=== PATIENT | male | born 1940 | race Two or more races ===

== ENCOUNTER → 2020-09-18 | Outpatient (REF) | payer MEDICARE, OTHER ==
[2020-09-18 17:41] LABS: PERCENT SATURATION 29.6 % (19.7-50.0)
[2020-09-18 17:49] LABS: FOLATE 15.9 NG/ML
== END ==
LOC: M LAB REF 17:03
PROVIDERS: ATTEND Internal Medicine Nephrology
DX: D64.9 Anemia, unspecified (principal)

== ENCOUNTER → 2020-10-28 | Outpatient (CLI) | payer MEDICARE, OTHER ==
[~2020-10-28] MED LIST: BARIUM SULFATE 700 MG TABLET (E-Z-DISK) As Ordered ONE; E-Z-PAQUE 96% w/w SUSP 176GM BTL As Ordered ONE; VARIBAR NECTAR 40% w/v 240ML SUSP BTL As Ordered ONE; VARIBAR PUDDING 40% w/v 230ML TUBE As Ordered ONE
--- NOTE | 2020-10-28 16:56 | REP ---
INDICATION: M47.02 DYSPHAGIA. COMPARISON: NONE TECHNIQUE: The procedure was performed under the direct supervision of . The procedure was performed with Gina Montanez from speech pathology present. 2.3 minutes of fluoroscopy time was utilized for this procedure. FINDINGS: Thin: The patient was instructed to take 1 drink from a cup. The patient took a large bolus. There is laryngeal penetration identified. Patient was then instructed to take a smaller during from the cup. With this there is no evidence of laryngeal penetration. [place], The patient was instructed to take a drink from the cup. There is no evidence of penetration or aspiration. There is residual barium seen in the vallecula. Mixed fruit: There is no evidence of penetration or aspiration. Pudding: There is no evidence of penetration or aspiration. The patient was then instructed to take the drink of thin consistency barium through a straw with the chin tuck. With this there is no evidence of penetration or aspiration. A detailed report of this examination will be provided by speech pathology. IMPRESSION: None RECOMMENDATION: A detailed report of this examination will be provided by speech pathology. IMPRESSION: On the initial swallow of thin barium, the patient took a large bolus. There was laryngeal penetration. A detailed report of this examination will be provided by speech pathology. <Electronically signed by Alli Weinstein > 10/28/20 0495 <Electronically signed by Ygoi Juan > 10/28/20 0328
== END ==
LOC: EDSTATUS 11:00 → M RAD 11:11
PROVIDERS: ATTEND Otolaryngology
DX: R13.10 Dysphagia, unspecified (principal)

== ENCOUNTER 2021-01-16 12:20 | Emergency (ER) | payer MEDICARE, OTHER ==
[~2021-01-16] VITALS: Ht 167.6 cm; Wt 72.7 kg
--- OUTSIDE RECORDS SUMMARY | 2021-01-16 12:27 | CCD | Continuity of Care Document ---
Author Leonardo Dyer PA Organization Unknown Address [address] [place] [address] [place] [address] Phone [phone] Care Team Providers Care Sheet Metal Work Furnace Installer Name Role Phone Leonardo Yancey DO AUTM [phone] Dagoberto Rooney MD AUTM [phone] Fawad Cui MD AUTM [phone] Problems Active Problems Provider Date Dietary management surveillance NEMO Hooper Onset : 11/10/2020 First degree atrioventricular block Juan C Mennedez MD Ons et: 05/09/2020 Electrocardiogram abnormal Juan C Menendez MD Onset: 05/09 Edema Juan C Menendez MD Onset: 05/09/2020 Orthostatic hypotension Juan C Menendez MD Onset: 05/09/19 21 Essential hypertension Juan C Menendez MD Onset: Chronic diastolic heart failure Juan C Menendez MD Onset: 05/09/2020 Social History Type Date Description Comments Sex Unknown ETOH Use Does not consume alcohol Tobacco Use Start: Unknown End: Unknown Patient is a former smoker quit in 1979 Smoking Status Reviewed: 11/10/20 Patient is a former smoker qu it in 1979 Exercise Type/Frequency Walks sporadically Exercise Type/Frequency feet exercises Exercise Type/Frequency exercise bike twice w [place] Exercise Limitations Other Dementia Exercise Limitations Parkinsons Allergies, Adverse Reactions, Alerts Description No Known Drug Allergies Medications Active Medications SIG Qnty Indications Ordering Provide r Date Multi Vitamin And Minerals Tablet s lion's marya supplement Unknown 11/09/2020 Vitamin D3 25mcg (1000 Ut) Capsule s 1 by mouth every day Unknown 11/09/2020 Co-Enzyme Q10 200mg Capsules 1 by mouth daily Unknown 11/09/2020 Docusate Sodium 100mg Tablets 2 by mouth once a day as needed Unknown 11/09/2020 Melatonin 10mg Capsules 1 by mouth once daily at bedtime Unknown 11/09/2020 Triamterene/Hydrochlorothiazide 37.5-25mg Capsules 1 by mouth every day Unknown 021 Aspirin 81mg Chewtabs 1 by mouth every day Unknown 05/08/2020 Atorvastatin Calcium 20mg Tablets 1 by mouth every night at bedtime Unknown 01/2021 Carbidopa-Levodopa 25-100mg Tablet s 1 by mouth 6 times a day Unknown 05/08/2020 Myrbetriq 25mg Tablets ER 24HR 1 by mouth every day Unknown 05/08/2020 Multivitamins Tablets Daily Man Cruz PA Synthroid 125mcg Tablets 1 PO daily Man Cruz PA Immunizations Description No Information Available Vital Signs Date Vital Result Comment 11/10/2020 10:32am Weight 155.00 lb Home Weight 161lb Height 63 inches 5'3" BMI (Body Mass Index) 27.5 kg/m2 BP Systolic Sitting 120 mmHg Ra, medium cuff BP Diastolic Sitting 70 mmHg Ra, medium cuff BP Systolic Lying Down 124 mmHg Ra, medium cuff BP Diastolic Lying Down 78 mmHg Ra, medium cuff BP Systolic Standing 112 mmHg Ra, medium cuff BP Diastolic Standing 68 mmHg Ra, medium cuff 05/09/2020 1:03pm Weight 175.00 lb Height 63 inches 5'3" BMI (Body Mass Index) 31.0 kg/m2 Heart Rate 57 /min BP Systolic Sitting 137 mmHg CBP, large cuff/Ra BP Diastolic Sitting 76 mmHg CBP, large cuff/Ra BP Systolic Lying Down 150 mmHg Omron, large cuff /Ra; HR: 55 bpm BP Diastolic Lying Down 80 mmHg Omron, large cuf f/Ra; HR: 55 bpm BP Systolic Standing 101 mmHg Omron, large cuff/R a; HR: 62 bpm BP Diastolic Standing 64 mmHg Omron, large cuff/ Ra; HR: 62 bpm Results Test Acquired Date Facility Test Result H/L Range Note Renal Profile 09/18/2020 [facility] ([facility])- - Glucose 103 70-106 Blood Urea Nitrogen 25.2 High 7-18 Creatinine 1.3 0.55-1.3 GFR (Calculated) 53 Low >60 Sodium 135.8 135-145 Potassium 3.52 3.5-5.5 Chloride 98.1 94-110 Carbon Dioxide 33.1 High 21-32 Calcium 8.8 8.5-10.1 Phosphorus 2.9 2.5-4.9 Albumin 4.0 3.5-4.7 CBC without Differential 09/18/2020 [facility] ([facility])- - White Blood Count 4.9 Low 5.0-10.0 Red Blood Count 3.61 Low 4.70-6.10 Platelets 232 172-450 Hemoglobin 11.3 Low 14.0-18.0 Hematocrit 34.8 Low 42.0-52.0 Laboratory test finding 09/18/2020 [facility] ([facility])- - Uric Acid 5.1 2.6-6 Magnesium Level 2.08 1.6-2.6 CBC With Auto Diff 05/21/2020 [place] [address] [phone] WBC # Bld Auto 4.8 10*3/uL Normal 4.45-10.71 1 RBC # Bld Auto 3.72 10*6/uL Low 4.3-6.1 Hgb Bld-sCnc 11.7 g/dL Low 13-18 Hct VFr Bld Auto 35.7 % Low 42-52 MCV BldCo Auto 96.0 fL Normal 80-96 MCH RBC Qn Auto 31.5 pg High 27-31 MCHC BldCo-mCnc 32.8 g/dL Low 33-37 RDW RBC Auto 14 % Normal 11-15 Platelet # Bld Auto 156 10*3/uL Normal 130-472 PMV Bld 8.1 fL Low 9.1-13.1 Neutrophils/leuk NFr Bld Auto 55.4 % Normal 41-77 Neutrophils # Bld Auto 2.6 U Normal 1.7-7.6 Lymphocytes/leuk NFr Bld Auto 25.6 % Normal 14-46 Lymphocytes # Bld Auto 1.2 U Normal 0.6-4.6 Monocytes/leuk NFr Bld Auto 15.9 % High 4-12 Monocytes # Bld Auto 0.8 U Normal 0.2-1.2 Eosinophil/leuk NFr Bld Auto 2.3 % Normal 0-7 Eosinophil # Bld Auto 0.1 U Normal 0.0-0.5 Basophils/leuk NFr Bld Auto 0.4 % Normal 0.4-1.3 Basophils # Bld Auto 0.0 U Normal 0.0-0.2 Nucleated Red Blood Cell 0 % Nucleated Red Blood Cell# 0 U Imm Granulocytes Bld Ql Auto 0.4 Normal 0-2 Imm Granulocytes # Bld Auto 0.0 U Normal 0-0.1 Manual diff Bld NO Comprehensive Metabolic Prof 05/21/2020 [place] [address] [phone] BUN SerPl-mCnc 26 mg/dL High 9-23 Sodium SerPl-sCnc 140 mmol/L Normal 132-146 Potassium SerPl-sCnc 3.7 mmol/L Normal 3.5-5.5 Chloride SerPl-sCnc 104 mmol/L Normal 99-109 Co2 SerPl-sCnc 32 mmol/L High 20-31 Anion Gap SerPl-sCnc 8 mmol/L Normal 8-16 Glucose SerPl-mCnc 87 mg/dL Normal 74-106 Creatinine 1.3 mg/dL High 0.5-1.1 GFR/Bsa.pred SerPlBld-ArVRat 53 UCUM Above 60 Alt SerPl w P-5'-P-cCnc 17 U/L Normal 10-49 Ast SerPl w P-5'-P-cCnc 26 U/L Normal 0-33 Alp SerPl-cCnc 81 U/L Normal 45-129 Calcium SerPl-mCnc 8.9 mg/dL Normal 8.5-10.1 Bilirub SerPl-mCnc 0.7 mg/dL Normal 0.3-1.2 Albumin SerPl BCP-mCnc 4.0 g/dL Normal 3.2-4.8 Prot SerPl-mCnc 7.6 g/dL Normal 5.7-8.2 Lipid Panel 05/21/2020 [place] [address] [phone] Triglycerides 62 mg/dL Normal 0-150 Cholesterol 97 mg/dL Low 120-200 HDL Cholesterol 44 mg/dL 2 LDL Cholesterol, Calc 41 mg/dL Normal 0-100 Laboratory test finding 05/21/2020 [place] [address] [phone] TSH SerPl DL<=0.005 mIU/L-aCnc 3.14 u[iU]/mL Normal 0.35-5.50 Laboratory test finding 05/21/2020 [place] [address] [phone] Phosphate SerPl-mCnc 2.8 mg/dL Normal 2.4-5.1 1 N18.30,I50.9,R60.0,I50.32 2 HDL Less than 40 mg/dL: Jamal or risk for CHD HDL Greater than 59 mg/dL: Low risk for CHD Procedures Date Code Description Status 11/10/2020 44735 Office/Outpatient Established Mo d MDM 30-39 Min Completed 11/10/2020 75084 ECG 12-Lead Completed 08/20/2020 84996 Echocardiogram 2-D Doppler Color Completed Medical Devices Description No Information Available Encounters Type Date Location Provider Dx Diagnosis Office Visit 11/10/2020 10:15a Main Office NEMO Hooper I50 .32 Chronic diastolic (congestive) heart failure I10 Essential (primary) hyperten chance I95.1 Orthostatic hypotension R60.0 Localized edema I44.0 Atrioventricular block, firs t degree R94.31 Abnormal electrocardiogram [ ECG] [EKG] Z71.3 Dietary counseling and surve illance Assessments Date Code Description Provider 11/10/2020 I50.32 Chronic diastolic (congestive) h eart failure NEMO Hooper 11/10/2020 I10 Essential (primary) hypertension NEMO Hooper 11/10/2020 I95.1 Orthostatic hypotension NEMO Delgadillo 11/10/2020 R60.0 Localized edema NEMO Torres Cha, se 11/10/2020 I44.0 Atrioventricular block, first de gree NEMO Hooper 11/10/2020 R94.31 Abnormal electrocardiogram [ECG] [EKG] NEMO Hooper 11/10/2020 Z71.3 Dietary counseling and surveilla nce NEMO Hooper 08/20/2020 I50.32 Chronic diastolic (congestive) h eart failure ECHO 08/20/2020 R60.0 Localized edema ECHO 08/20/2020 R94.31 Abnormal electrocardiogram [ECG] [EKG] ECHO Plan of Treatment Future Appointment(s):* 05/13/2021 10:45 am - NEMO Hooper at Main Office 11/10/2020 - NEMO Hooper* I50.32 Chronic diastolic (congestive) heart failure* Recommendations:* Would recommend discontinuation or adjustment of triamterene/HCTZ, they will discuss with Dr. Yancey Please alert our office with a weight gain of more than 3 pounds, onset of shortness of breath, or lower extremity edema * I10 Essential (primary) hypertension* Recommendations:* Would recommend discontinuation of triamterene/HCTZ, they will discuss with Dr. Yancey Advised patient to please monitor blood pressures at home and to alert our office for readings >150/>90 or <110/<60 * I95.1 Orthostatic hypotension* Recommendations:* Would recommend discontinuation of triamterene/HCTZ, possibly to a low dose torsemide, they will discuss with Dr. Yancey Encouraged him to change positions slowly * R60.0 Localized edema* Recommendations:* Would recommend discontinuation of triamterene/HCTZ and possibly initiating a low dose of torsemide, they will discuss with Dr. Yancey Encouraged use of compression socks and elevation of the legs * I44.0 Atrioventricular block, first degree* Recommendations:* No further evaluation is needed at this time * R94.31 Abnormal electrocardiogram [ECG] [EKG]* Recommendations:* No further evaluation is needed at this time. * Z71.3 Dietary counseling and surveillance* Recommendations:* Recommended for patient to follow a more whole food diet. Advised patient to avoid overly processed foods and packaged foods. Advised patient to avoid sodas, juices and other liquid calories. Recommended at least 30 minutes of exercise 3 days a week. * All * Follow up:* Follow up in 6 months Functional Status Functional Condition Comment Date Status Slow with ambulating Active Independent with bathing Active Requires assistance with dressing Active Independent with feeding Active Independent with grooming Active Independent with standing Active Requires assistance with toileting Active Mental Status Description No Information Available Referrals Description No Information Available
--- OUTSIDE RECORDS SUMMARY | 2021-01-16 12:27 | CCD ---
Continuity of Care Document (CCD) Created on: 11/10/2020 Leonardo Jarrett External Reference #: [id number] : [id number] Sex: Male Author Leonardo Dyer PA Organization Unknown Address [address] [place] [address] [place] [address] Phone [phone] Care Team Providers Care Lining Repairer Name Role Phone Leonardo Yancey DO AUTM [phone] Dagoberto Rooney MD AUTM [phone] Fawad Cui MD AUTM [phone] Problems Active Problems Provider Date Dietary management surveillance NEMO Hooper Onset : 11/10/2020 First degree atrioventricular block Juan C Menendez MD Ons et: 05/09/2020 Electrocardiogram abnormal Juan [...] smoker quit in 1979 Smoking Status Reviewed: 05/09/20 Patient is a former smoker qu it in 1979 Exercise Type/Frequency Walks sporadically Exercise Type/Frequency feet exercises Exercise Type/Frequency exercise bike twice w [place] Exercise Limitations Other Dementia Exercise Limitations Parkinsons [...] 5'3" BMI (Body Mass Index) 27.5 kg/m2 05/09/2020 1:03pm Weight 175.00 lb Height 63 [...] 2.08 1.6-2.6 CBC With Auto Diff 05/21/2020 [place] [address] [phone] WBC # Bld Auto 4.8 10*3/uL Normal [...] diff Bld NO Comprehensive Metabolic Prof 05/21/2020 [place] [address] [phone] BUN SerPl-mCnc 26 mg/dL High 9-23 Sodium [...] 7.6 g/dL Normal 5.7-8.2 Lipid Panel 05/21/2020 [place] [address] [phone] Triglycerides 62 mg/dL Normal 0-150 Cholesterol 97 mg/dL Low 120-200 HDL Cholesterol 44 mg/dL 2 LDL Cholesterol, Calc 41 mg/dL Normal 0-100 Laboratory test finding 05/21/2020 [place] [address] [phone] TSH SerPl DL<=0.005 mIU/L-aCnc 3.14 u[iU]/mL Normal 0.35-5.50 Laboratory test finding 05/21/2020 [place] [address] [phone] Phosphate SerPl-mCnc 2.8 mg/dL Normal 2.4-5.1 1 N18.30,I50.9,R60.0,I50.32 2 HDL Less than 40 mg/dL: Jamal or risk for CHD HDL Greater than 59 mg/dL: Low risk for CHD Procedures Date Code Description Status 11/10/2020 74800 Office/Outpatient Established Mo d MDM 30-39 Min Completed 11/10/2020 76110 ECG 12-Lead Completed 08/20/2020 61798 Echocardiogram 2-D Doppler Color Completed Medical Devices [...] 11/10/2020 R94.31 Abnormal electrocardiogram [ECG] [EKG] NEMO Hoopre 11/10/2020 Z71.3 Dietary counseling and surveilla nce [...]
--- OUTSIDE RECORDS SUMMARY | 2021-01-16 12:27 | CCD | Continuity of Care Document ---
Author Leonardo Laughlin MD Organization Unknown Address [address] [facility], [address] [place] [address] Phone [phone] Care Team Providers Care Repair Weaver Name Role Phone Leonardo Yancey D.O. AUTM [phone] Leonardo Yancey D.O. AUTM [phone] AUTM Unavailable Problems Active Problems Provider Date Disturbance in speech Juan C Johnson MD Onset: 10/07/2020 Open fracture of nasal bones Juan C Johnson MD Onset: 08/27 Deviated nasal septum Juan C Johnson MD Onset: 09/17/2020 Social History Type Date Description Comments Sex Unknown ETOH Use Denies alcohol use Tobacco Use Start: Unknown End: Unknown Patient is a former smoker Recreational Drug Use Never Used Drugs Allergies, Adverse Reactions, Alerts Description No Known Drug Allergies Medications Active Medications SIG Qnty Indications Ordering Provide r Date Carbidopa-Levodopa 25-100mg Tablet s 1 tab by mouth every morning, 1 po 11am, 2 po 3pm, 2 po 7pm Unknown Triamterene/Hydrochlorothiazide 37.5-25mg Tablets 1 tab by mouth every day Unknown Levothyroxine Sodium 125mcg Tablet s 1 by mouth every day Unknown Myrbetriq 25mg Tablets ER 24HR 1 tab by mouh ever Unknown Atorvastatin Calcium 20mg Tablets 1 by mouth every day Unknown Aspirin 81mg Chewtabs 1 tab by mouth every day Unknown Multivitamin Tablets 1 tab by mouth every day Unknown Vitamin D 25mcg (1000 Ut) Tablets 1 tab by mouth every day Unknown Co-Enzyme Q10 200mg Capsules 1 tab by mouth every day Unknown Melatonin 5mg Capsules 1 tab by mouth every day Unknown History Medications Amoxicillin 500mg Capsules 1 PO tid 10 days 30caps J34.2 Juan C Johnson MD 09/17/2020 - Immunizations Description No Information Available Vital Signs Date Vital Result Comment 11/04/2020 3:06pm BP Systolic 130 mmHg BP Diastolic 90 mmHg Heart Rate 60 /min O2 % BldC Oximetry 98 % Height 63 inches 5'3" Weight 161.00 lb BMI (Body Mass Index) 28.5 kg/m2 [place] Body Weight 124 lb Weight 73.030 kg BSA (Body Surface Area) 1.76 m2 10/07/2020 2:53pm BP Systolic 140 mmHg BP Diastolic 90 mmHg Heart Rate 62 /min O2 % BldC Oximetry 99 % Height 63 inches 5'3" Weight 164.00 lb BMI (Body Mass Index) 29.0 kg/m2 [place] Body Weight 124 lb Weight 74.390 kg BSA (Body Surface Area) 1.78 m2 Results Description No Information Available Procedures Date Code Description Status 10/07/2020 61588 Office/Outpatient Established Lo w MDM 20-29 Min Completed 09/17/2020 55617 Office/Outpatient New Moderate M DM 45-59 Minutes Completed Medical Devices Description No Information Available Encounters Type Date Location Provider Dx Diagnosis Office Visit 10/07/2020 2:45p [facility] Darnell Schofield J34.2 Deviated nasal septum S02.2xxB Fracture of nasal bones, ini tial encounter for open fracture R47.02 Dysphasia Office Visit 09/17/2020 11:15a [facility] Darnell Schofield J34.2 Deviated nasal septum S02.2xxB Fracture of nasal bones, ini tial encounter for open fracture Assessments Date Code Description Provider 11/04/2020 J34.2 Deviated nasal septum Juan C sanchez MD 11/04/2020 S02.2xxB Fracture of nasal [place], initial encounter for open fracture Juan C Johnson MD 11/04/2020 R47.02 Dysphasia Juan C Johnson MD 10/07/2020 J34.2 Deviated nasal septum Juan C sanchez MD 10/07/2020 S02.2xxB Fracture of nasal [place], initial encounter for open fracture Juan C Johnson MD 10/07/2020 R47.02 Dysphasia Juan C Johnson MD 09/17/2020 J34.2 Deviated nasal septum Juan C sanchez MD 09/17/2020 S02.2xxB Fracture of nasal [place], initial encounter for open fracture Juan C Johnson MD Plan of Treatment 11/04/2020 - Juan C Johnson MD* J34.2 Deviated nasal septum* Comments:* I will follow-up in 6 months for evaluation of breathing through the nostrils. * S02.2xxB Fracture of nasal bones, initial encounter for open fracture * R47.02 Dysphasia* Comments:* Due to the findings on the barium swallow test, we will refer to GI. I recommend continuation with speech therapy. I will follow-up on this at the 6 month appointment. Patient and family are happy to follow this plan. Functional Status Description No Information Available Mental Status Description No Information Available Referrals Refer to Reason for Referral Status Appt Date Juan C Johnson M.D. Fracture of nasal bone Closed 0 09/17/[address] [address] [phone]
--- OUTSIDE RECORDS SUMMARY | 2021-01-16 12:27 | CCD | Continuity of Care Document ---
Author Leonardo Laughlin MD Organization Unknown Address [address] [facility], [address] [place] [address] Phone [phone] Care Team Providers Care Copy Chaser Name Role Phone Leonardo Yancey D.O. AUTM [phone] Leonardo Yancey D.O. AUTM [phone] AUTM Unavailable Problems Active Problems Provider Date [...] lb BMI (Body Mass Index) 28.5 kg/m2 [place] Body Weight 124 lb Weight 73.030 kg BSA (Body Surface Area) 1.76 m2 10/07/2020 2:53pm BP Systolic 140 mmHg BP Diastolic 90 mmHg Heart Rate 62 /min O2 % BldC Oximetry 99 % Height 63 inches 5'3" Weight 164.00 lb BMI (Body Mass Index) 29.0 kg/m2 [place] Body Weight 124 lb Weight 74.390 kg BSA (Body Surface Area) 1.78 m2 Results Description No Information Available Procedures Date Code Description Status 10/07/2020 71633 Office/Outpatient Established Lo w MDM 20-29 Min Completed 09/17/2020 96908 Office/Outpatient New Moderate M DM 45-59 Minutes Completed Medical Devices Description No Information Available Encounters Type Date Location Provider Dx Diagnosis Office Visit 10/07/2020 2:45p [facility] Darnell Schofield J34.2 Deviated nasal septum S02.2xxB Fracture of nasal bones, ini tial encounter for open fracture R47.02 Dysphasia Office Visit 09/17/2020 11:15a [facility] Darnell Schofield J34.2 Deviated [...] of nasal bone Closed 0 09/17/[address] [address] [phone]
--- OUTSIDE RECORDS SUMMARY | 2021-01-16 12:27 | CCD | Continuity of Care Document ---
Author Author Leonardo JOHNSON MD Organization Unknown Address [address] [facility], [address] [place] [address] Phone [phone] Care Team Providers Care Bench Shear Operator Name Role Phone Leonardo Yancey D.O. AUTM [phone] Leonardo Yancey D.O. AUTM [phone] AUTM Unavailable Juan C Johnson M.D. AUTM [phone] Problems Active Problems Provider Date Disturbance in [...] lb BMI (Body Mass Index) 28.5 kg/m2 [place] Body Weight 124 lb Weight 73.030 kg BSA (Body Surface Area) 1.76 m2 10/07/2020 2:53pm BP Systolic 140 mmHg BP Diastolic 90 mmHg Heart Rate 62 /min O2 % BldC Oximetry 99 % Height 63 inches 5'3" Weight 164.00 lb BMI (Body Mass Index) 29.0 kg/m2 [place] Body Weight 124 lb Weight 74.390 kg BSA (Body Surface Area) 1.78 m2 Results Description No Information Available Procedures Date Code Description Status 11/04/2020 48475 Office/Outpatient Established Lo w MDM 20-29 Min Completed 10/07/2020 12317 Office/Outpatient Established Lo w MDM 20-29 Min Completed 09/17/2020 13232 Office/Outpatient New Moderate M DM 45-59 Minutes Completed Medical Devices Description No Information Available Encounters Type Date Location Provider Dx Diagnosis Office Visit 11/04/2020 3:00p [facility] Darnell Schofield J34.2 Deviated nasal septum S02.2xxB Fracture of nasal bones, ini tial encounter for open fracture R47.02 Dysphasia Office Visit 10/07/2020 2:45p [facility] Darnell Schofield J34.2 Deviated nasal septum S02.2xxB Fracture of nasal bones, ini tial encounter for open fracture R47.02 Dysphasia Office Visit 09/17/2020 11:15a [facility] Darnell Schofield J34.2 Deviated [...] Juan C Johnson MD Plan of Treatment Future Appointment(s):* 12/22/2020 9:30 am - SONIYA Rowland at [facility] Functional Status Description No Information Available Mental Status Description No Information Available Referrals Refer to Dr Reason for Referral Status Appt Date Juan C Garcia M.D. Dysphagia abnormal swallowing study Sent 12/22/2020 [facility], Gastroenterology [address] [place] [address] [address] [place] [address] [phone] Closed Juan C Johnson M.D. Fracture of nasal bone Closed 0 09/17/[address] [place] [address] [address] [place] [address] [phone]
--- OUTSIDE RECORDS SUMMARY | 2021-01-16 12:27 | CCD | Continuity of Care Document ---
Author Leonardo Laughlin MD Organization Unknown Address [address] [facility], [address] [place] [address] Phone [phone] Care Team Providers Care Real Estate Agency Principal Name Role Phone Leonardo Yancey D.O. AUTM [phone] Leonardo Yancey D.O. AUTM [phone] AUTM Unavailable Problems Active Problems Provider Date [...] lb BMI (Body Mass Index) 28.5 kg/m2 [place] Body Weight 124 lb Weight 73.030 kg BSA (Body Surface Area) 1.76 m2 10/07/2020 2:53pm BP Systolic 140 mmHg BP Diastolic 90 mmHg Heart Rate 62 /min O2 % BldC Oximetry 99 % Height 63 inches 5'3" Weight 164.00 lb BMI (Body Mass Index) 29.0 kg/m2 [place] Body Weight 124 lb Weight 74.390 kg BSA (Body Surface Area) 1.78 m2 Results Description No Information Available Procedures Date Code Description Status 10/07/2020 90610 Office/Outpatient Established Lo w MDM 20-29 Min Completed 09/17/2020 23754 Office/Outpatient New Moderate M DM 45-59 Minutes Completed Medical Devices Description No Information Available Encounters Type Date Location Provider Dx Diagnosis Office Visit 10/07/2020 2:45p [facility] Darnell Schofield J34.2 Deviated nasal septum S02.2xxB Fracture of nasal bones, ini tial encounter for open fracture R47.02 Dysphasia Office Visit 09/17/2020 11:15a [facility] Darnell Schofield J34.2 Deviated nasal [...] of nasal bone Closed 0 09/17/[address] [address] [phone]
--- OUTSIDE RECORDS SUMMARY | 2021-01-16 12:27 | CCD | Continuity of Care Document ---
Author Leonardo Laughlin MD Organization Unknown Address [address] [facility], [address] [place] [address] Phone [phone] Care Team Providers Care Logistics Operations Director Name Role Phone Leonardo Yancey D.O. AUTM [phone] Leonardo Yancey D.O. AUTM [phone] AUTM Unavailable Problems Active Problems Provider Date [...] lb BMI (Body Mass Index) 28.5 kg/m2 [place] Body Weight 124 lb Weight 73.030 kg BSA (Body Surface Area) 1.76 m2 10/07/2020 2:53pm BP Systolic 140 mmHg BP Diastolic 90 mmHg Heart Rate 62 /min O2 % BldC Oximetry 99 % Height 63 inches 5'3" Weight 164.00 lb BMI (Body Mass Index) 29.0 kg/m2 [place] Body Weight 124 lb Weight 74.390 kg BSA (Body Surface Area) 1.78 m2 Results Description No Information Available Procedures Date Code Description Status 10/07/2020 50560 Office/Outpatient Established Lo w MDM 20-29 Min Completed 09/17/2020 01159 Office/Outpatient New Moderate M DM 45-59 Minutes Completed Medical Devices Description No Information Available Encounters Type Date Location Provider Dx Diagnosis Office Visit 10/07/2020 2:45p [facility] Darnell Schofield J34.2 Deviated nasal septum S02.2xxB Fracture of nasal bones, ini tial encounter for open fracture R47.02 Dysphasia Office Visit 09/17/2020 11:15a [facility] Darnell Schofield J34.2 Deviated nasal [...] of nasal bone Closed 0 09/17/[address] [address] [phone]
--- OUTSIDE RECORDS SUMMARY | 2021-01-16 12:28 | CCD | Continuity of Care Document ---
Author Author [facility], Moon Wiseman Organization Unknown Address [address] [place] [address] Phone [phone] Care Team Providers Care Sales Representative Health Insurance Name Role Phone Aparna Clemente [phone] Problems Active Problems Provider Date Increased frequency of urination NEMO Ferrell Onset: 04/23/2020 Social History Type Date Description Comments Sex Unknown Tobacco Use Start: Unknown End: Unknown Former Cigarette Smo ker Tobacco Use Start: Unknown Never Smoked Cigars Smoking Status Reviewed: 04/23/20 Never Smoked Cigars Tobacco Use Start: Unknown Never Smoked A Pipe Tobacco Use Start: Unknown Never Used Smokeless Tobacco Tobacco Use Start: Unknown End: Unknown Patient is a former smoker smoked for 29 years Allergies, Adverse Reactions, Alerts Active Allergies Reaction Severity Comments Date NKDA 10/31/2019 NKEA 10/31/2019 NKFA 10/31/2019 Medications Active Medications SIG Qnty Indications Ordering Provide r Date Carbidopa-Levodopa 25-100mg Tablet s take one tablet by mouth 2 times a day then 2 tablets twice daily Unknown Myrbetriq 25mg Tablets ER 24HR 1 by mouth every day Unknown Levothyroxine Sodium 125mcg Tablet s 1 by mouth every day Unknown Atorvastatin Calcium 20mg Tablets 1 by mouth every day Unknown Aspirin [address] 1 by mouth every day Unknown Vitamin D3 50mcg (1999 Ut) Capsule s 1 by mouth every day Unknown Mens 50+ Advanced Capsules Unknown Coq10 St-100 [id number] Capsul es 200mg daily Unknown Lions Tony Mushroom take 2 tablets twice daily Unknown Triam/HCTZ 37.5-25mg Unknown Melatonin 10mg Capsules 1 cap by mouth every night Unknown Docusate Sodium 100mg Capsules 1 cap by mouth twice a day Unknown Immunizations Description No Information Available Vital Signs Date Vital Result Comment 10/22/2020 2:57pm BP Systolic 133 mmHg BP Diastolic 74 mmHg Heart Rate 61 /min O2 % BldC Oximetry 97 % Weight 166.00 lb Weight 75.298 kg 04/23/2020 2:09pm BP Systolic 163 mmHg BP Diastolic 85 mmHg Heart Rate 65 /min Respiratory Rate 18 /min O2 % BldC Oximetry 92 % Results Test Acquired Date Facility Test Result H/L Range Note Inhouse [facility] 10/22/2020 In Office [facility] Color yellow Normal: Yellow [facility] Appearance clear Normal: Clear Spec [place] 1.005 1.001-1.030 [facility] PH Test Strip 7 5-9 Leukocytes neg Normal: Negative [facility] Nitrate neg Normal: Negative [facility] Protein trace Normal: Negative Inhouse Glucose neg Normal: Negative Ua Ketones neg Noraml: Negative Urobilinogen neg Normal: Negative [facility] Bilirubin neg Normal: Negative Blood neg Noraml: Negative Procedures Description No Information Available Medical Devices Description No Information Available Encounters Description No Information Available Assessments Description No Information Available Plan of Treatment Future Appointment(s):* 04/29/2021 11:00 am - Glenn Wadsworth M.D. at [facility] 04/23/2020 - NEMO Ferrell* R35.0 Frequency of micturition* Comments:* Patient with long standing urinary frequency and sensation of incomplete bladder emptying presents today for uroflow and PVR, accompanied with his daughter in law.Patient reports that he continues to report urinary frequency and nocturia 3-4 times a night.Uroflow in office today revealed a maximum flow of 12.2 ml/s; average flow of 6.9 ml/s; voided volume of 151 ml and post void residual of 128.Pathophysiology of overactive bladder versus obstructive voiding symptoms were discussed in detail with the patient. Uroflow results were reviewed with patient and daughter in law and made aware that his symptoms are more overactive bladder in nature. Offered to increase Myrbetriq was dose from 25 mg to 50 mg PO daily to see if this would help or change the time of day the Myrbetriq was being taken. Patient opted to change time of day. He will start taking the Myrbetriq 25mg PO QHS to see if this helps with his nocturia. He was also advised to decrease oral intake at bedtime. Risks, benefits, and side effects of the medications were discussed with the patient including dry mouth and constipation.Patient will follow up in 6 months for medication recheck, or sooner if his symptoms persist or w orsen.Patient and daughter in law voiced understanding and agreement with the plan of care. * Follow up:* 6 Months * R35.1 Nocturia* Comments:* see above.If this persists, will also consider a trial of flomax Functional Status Description No Information Available Mental Status Description No Information Available Referrals Description No Information Available
--- OUTSIDE RECORDS SUMMARY | 2021-01-16 12:28 | CCD | Continuity of Care Document ---
Author Author Leonardo DELGADILLO PA Organization Unknown Address [facility] [place] [address] Phone [phone] Care Team Providers Care Custom Clothier Name Role Phone Aparna Clemente [phone] Problems Active Problems Provider Date Increased frequency [...] Mens 50+ Advanced Capsules Unknown Coq10 St-100 [id number] Capsul es 200mg daily Unknown Licodi Tony Mushroom take 2 tablets twice daily [...] O2 % BldC Oximetry 92 % Results Description No Information Available Procedures Description No Information Available Medical Devices Description No Information Available Encounters Description No Information Available Assessments Description No Information Available Plan of Treatment Future Appointment(s):* 04/29/2021 11:00 am - Glenn Wadsworth M.D. at [facility] 04/23/2020 - NEMO Ferrell* R35.0 [...]
--- OUTSIDE RECORDS SUMMARY | 2021-01-16 12:29 | CCD ---
Author Author [facility] Organization [facility] Address Unknown Phone Unavailable Care Team Providers Care Senior Writer Name Role Phone Dagoberto Rooney MD Unavailable Unavailable Dagoberto Rooney MD Unavailable Unavailable Dagoberto Rooney MD Unavailable Unavailable Dagoberto Rooney MD Unavailable Unavailable Dagoberto Rooney MD Unavailable Unavailable Dagoberto Rooney MD Unavailable Unavailable Dagoberto Rooney MD Unavailable Unavailable Dagoberto Rooney MD Unavailable Unavailable Dagoberto Rooney MD Unavailable Unavailable Dagoberto Rooney MD Unavailable Unavailable Dagoberto Rooney MD Unavailable Unavailable Dagoberto Rooney MD Unavailable Unavailable Dagoberto Rooney MD Unavailable Unavailable Dagoberto Rooney MD Unavailable Unavailable Dagoberto Rooney MD Unavailable Unavailable Dagoberto Rooney MD Unavailable Unavailable Dagoberto Rooney MD Unavailable Unavailable Dagoberto Rooney MD Unavailable Unavailable Dagoberto Rooney MD Unavailable Unavailable Dagoberto Rooney MD Unavailable Unavailable Dagoberto Rooney MD Unavailable Unavailable Dagoberto Rooney MD Unavailable Unavailable Dagoberto Rooney MD Unavailable Unavailable Dagoberto Rooney MD Unavailable Unavailable Dagoberto Rooney MD Unavailable Unavailable Ali, Dagoberto MD Unavailable Unavailable Ali, Dagoberto MD Unavailable Unavailable Ali, Dagoberto MD Unavailable Unavailable Ali, Dagoberto MD Unavailable Unavailable Ali, Dagoberto MD Unavailable Unavailable Ali, Dagoberto MD Unavailable Unavailable Ali, Dagoberto MD Unavailable Unavailable Ali, Dagoberto MD Unavailable Unavailable Ali, Dagoberto MD Unavailable Unavailable Ali, Dagoberto MD Unavailable Unavailable Ali, Dagoberto MD Unavailable Unavailable Ali, Dagoberto MD Unavailable Unavailable Ali, Dagoberto MD Unavailable Unavailable Ali, Dagoberto MD Unavailable Unavailable Ali, Dagoberto MD Unavailable Unavailable Ali, Dagoberto MD Unavailable Unavailable Ali, Dagoberto MD Unavailable Unavailable Ali, Dagoberto MD Unavailable Unavailable Ali, Dagoberto MD Unavailable Unavailable Ali, Dagoberto MD Unavailable Unavailable Ali, Dagoberto MD Unavailable Unavailable Ali, Dagoberto MD Unavailable Unavailable Ali, Dagoberto MD Unavailable Unavailable Ali, Dagoberto MD Unavailable Unavailable Ali, Dagoberto MD Unavailable Unavailable Bartoszewski, Myla Obdulia MS, RPA-C Unavailable Unav ailable Bartoszewski, Myla Obdulia MS, RPA-C Unavailable Unav ailable Bartoszewski, Myla Obdulia MS, RPA-C Unavailable Unav ailable Bartoszewski, Myla Obdulia MS, RPA-C Unavailable Unav ailable Bartoszewski, Myla Obdulia MS, RPA-C Unavailable Unav ailable Bartoszewski, Myla Obdulia MS, RPA-C Unavailable Unav ailable Bartoszewski, Myla Obdulia MS, RPA-C Unavailable Unav ailable Bartoszewski, Myla Obdulia MS, RPA-C Unavailable Unav ailable Bartoszewski, Myla Obdulia MS, RPA-C Unavailable Unav ailable Bartoszewski, Myla Obdulia MS, RPA-C Unavailable Unav ailable Bartoszewski, Myla Obdulia MS, RPA-C Unavailable Unav ailable Bartoszewski, Myla Obdulia MS, RPA-C Unavailable Unav ailable Bartoszewski, Myla Obdulia MS, RPA-C Unavailable Unav ailable Bartoszewski, Myla Obdulia MS, RPA-C Unavailable Unav ailable Bartoszewski, Myla Obdulia MS, RPA-C Unavailable Unav ailable Bartoszewski, Mlya Obdulia MS, RPA-C Unavailable Unav ailable Bartoszewski, Myla Obdulia MS, RPA-C Unavailable Unav ailable Bartoszewski, Myla Obdulia MS, RPA-C Unavailable Unav ailable Bartoszewski, Myla Obdulia MS, RPA-C Unavailable Unav ailable Bartoszewski, Myla Obdulia MS, RPA-C Unavailable Unav ailable Bartoszewski, Myla Obdulia MS, RPA-C Unavailable Unav ailable Bartoszewski, Myla Obdulia MS, RPA-C Unavailable Unav ailable Bartoszewski, Myla Obdulia MS, RPA-C Unavailable Unav ailable Bartoszewski, Myla Obdulia MS, RPA-C Unavailable Unav ailable Bartoszewski, Myla Obdulia MS, RPA-C Unavailable Unav ailable Bartoszewski, Myla Obdulia MS, RPA-C Unavailable Unav ailable Bartoszewski, Myla Obdulia MS, RPA-C Unavailable Unav ailable Bartoszewski, Myla Obdulia MS, RPA-C Unavailable Unav ailable Bartoszewski, Myla Obdulia MS, RPA-C Unavailable Unav ailable ANTECOL, Alley BARRIENTOS MD Unavailable Unavailable ANTECOL, Alley BARRIENTOS MD Unavailable Unavailable ANTECOL, Alley BARRIENTOS MD Unavailable Unavailable ANTECOL, Alley BARRIENTOS MD Unavailable Unavailable ANTECOL, Alley BARRIENTOS MD Unavailable Unavailable ANTECOL, Alley BARRIENTOS MD Unavailable Unavailable ANTECOL, Alley BARRIENTOS MD Unavailable Unavailable ANTECOL, Alley BARRIENTOS MD Unavailable Unavailable ANTECOL, Alley BARRIENTOS MD Unavailable Unavailable ANTECOL, Alley BARRIENTOS MD Unavailable Unavailable ANTECOL, Alley BARRIENOTS MD Unavailable Unavailable ANTECOL, Alley BARRIENTOS MD Unavailable Unavailable ANTECOL, Alley BARRIENTOS MD Unavailable Unavailable ANTECOL, Alley BARRIENTOS MD Unavailable Unavailable ANTECOL, Alley BARRIENTOS MD Unavailable Unavailable ANTECOL, Alley BARRIENTOS MD Unavailable Unavailable ANTECOL, Alley BARRIENTOS MD Unavailable Unavailable ANTECOL, Alley BARRIENTOS MD Unavailable Unavailable ANTECOL, Alley BARRIENTOS MD Unavailable Unavailable ANTECOL, Alley BARRIENTOS MD Unavailable Unavailable ANTECOL, Alley BARRIENTOS MD Unavailable Unavailable ANTECOL, Alley BARRIENTOS MD Unavailable Unavailable ANTECOL, Alley BARRIENTOS MD Unavailable Unavailable ANTECOL, Alley BARRIENTOS MD Unavailable Unavailable ANTECOL, Alley BARRIENTOS MD Unavailable Unavailable ANTECOL, Alley BARRIENTOS MD Unavailable Unavailable ANTECOL, Alley BARRIENTOS MD Unavailable Unavailable ANTECOL, Alley BARRIENTOS MD Unavailable Unavailable ANTECOL, Alley BARRIENTOS MD Unavailable Unavailable ANTECOL, Alley BARRIENTOS MD Unavailable Unavailable ANTECOL, Alley BARRIENTOS MD Unavailable Unavailable ANTECOL, Alley BARRIENTOS MD Unavailable Unavailable ANTECOL, Alley BARRIENTOS MD Unavailable Unavailable ANTECOL, Alley BARRIENTOS MD Unavailable Unavailable ANTECOL, Alley BARRIENTOS MD Unavailable Unavailable ANTECOL, Alley BARRIENTOS MD Unavailable Unavailable ANTECOL, Alley BARRIENTOS MD Unavailable Unavailable ANTECOL, Alley BARRIENTOS MD Unavailable Unavailable ANTECOL, Alley BARRIENTOS MD Unavailable Unavailable ANTECOL, Alley BARRIENTOS MD Unavailable Unavailable ANTECOL, Alley BARRIENTOS MD Unavailable Unavailable ANTECOL, Alley BARRIENTOS MD Unavailable Unavailable ANTECOL, Alley BARRIENTOS MD Unavailable Unavailable ANTECOL, Alley BARRIENTOS MD Unavailable Unavailable ANTECOL, Alley BARRIENTOS MD Unavailable Unavailable ANTECOL, Alley BARRIENTOS MD Unavailable Unavailable ANTECOL, Alley BARRIENTOS MD Unavailable Unavailable ANTECOL, Alley BARRIENTOS MD Unavailable Unavailable ANTECOL, Alley BARRIENTOS MD Unavailable Unavailable ANTECOL, Alley BARRIENTOS MD Unavailable Unavailable ANTECOL, Alley BARRIENTOS MD Unavailable Unavailable ANTECOL, Alley BARRIENTOS MD Unavailable Unavailable ANTECOL, Alley BARRIENTOS MD Unavailable Unavailable ANTECOL, Alley BARRIENTOS MD Unavailable Unavailable ELENA, L MIRIAN PA Unavailable Unavailable ELENA, L MIRIAN PA Unavailable Unavailable ELENA, L MIRIAN PA Unavailable Unavailable ELENA, L MIRIAN PA Unavailable Unavailable ELENA, L MIRIAN PA Unavailable Unavailable ELENA, L MIRIAN PA Unavailable Unavailable ELENA, L MIRIAN PA Unavailable Unavailable ELENA, L MIRIAN PA Unavailable Unavailable ELENA, L MIRIAN PA Unavailable Unavailable ELENA, L MIRIAN PA Unavailable Unavailable ELENA, L MIRIAN PA Unavailable Unavailable ELENA, L MIRIAN PA Unavailable Unavailable ELENA, L MIRIAN PA Unavailable Unavailable ELENA, L MIRIAN PA Unavailable Unavailable ELENA, L MIRIAN PA Unavailable Unavailable ELENA, L MIRIAN PA Unavailable Unavailable KURT, A JAHANGIR Unavailable Unavailable KURT, A JAHANGIR Unavailable Unavailable KURT, A JAHANGIR Unavailable Unavailable KURT, A JAHANGIR Unavailable Unavailable KURT, A JAHANGIR Unavailable Unavailable KURT, A JAHANGIR Unavailable Unavailable KURT, A JAHANGIR Unavailable Unavailable KURT, A JAHANGIR Unavailable Unavailable KURT, A JAHANGIR Unavailable Unavailable KURT, A JAHANGIR Unavailable Unavailable KURT, A JAHANGIR Unavailable Unavailable KURT, A JAHANGIR Unavailable Unavailable KURT, A JAHANGIR Unavailable Unavailable KURT, A JAHANGIR Unavailable Unavailable KURT, A JAHANGIR Unavailable Unavailable KURT, A JAHANGIR Unavailable Unavailable KURT, A JAHANGIR Unavailable Unavailable KURT, A JAHANGIR Unavailable Unavailable KURT, A JAHANGIR Unavailable Unavailable KURT, A JAHANGIR Unavailable Unavailable KURT, A JAHANGIR Unavailable Unavailable KURT, A JAHANGIR Unavailable Unavailable KURT, A JAHANGIR Unavailable Unavailable KURT, A JAHANGIR Unavailable Unavailable KURT, A JAHANGIR Unavailable Unavailable KURT, A JAHANGIR Unavailable Unavailable KURT, A JAHANGIR Unavailable Unavailable KURT, A JAHANGIR Unavailable Unavailable KURT, A JAHANGIR Unavailable Unavailable KURT, A JAHANGIR Unavailable Unavailable KURT, A JAHANGIR Unavailable Unavailable OBEN, T MARVIN MD Unavailable Unavailable OBEN, T MARVIN MD Unavailable Unavailable OBEN, T MARVIN MD Unavailable Unavailable OBEN, T MARVIN MD Unavailable Unavailable OBEN, T MARVIN MD Unavailable Unavailable OBEN, T MARVIN MD Unavailable Unavailable OBEN, T MARVIN MD Unavailable Unavailable OBEN, T MARVIN MD Unavailable Unavailable OBEN, T MARVIN MD Unavailable Unavailable OBEN, T MARVIN MD Unavailable Unavailable OBEN, T MARVIN MD Unavailable Unavailable OBEN, T MARVIN MD Unavailable Unavailable OBEN, T MARVIN MD Unavailable Unavailable OBEN, T MARVIN MD Unavailable Unavailable OBEN, T MARVIN MD Unavailable Unavailable OBEN, T MARVIN MD Unavailable Unavailable OBEN, T MARVIN MD Unavailable Unavailable OBEN, T MARVIN MD Unavailable Unavailable OBEN, T MARVIN MD Unavailable Unavailable OBEN, T MARVIN MD Unavailable Unavailable OBEN, T MARVIN MD Unavailable Unavailable OBEN, T MARVIN MD Unavailable Unavailable OBEN, T MARVIN MD Unavailable Unavailable OBEN, T MARVIN MD Unavailable Unavailable OBEN, T MARVIN MD Unavailable Unavailable OBEN, T MARVIN MD Unavailable Unavailable OBEN, T MARVIN MD Unavailable Unavailable OBEN, T MARVIN MD Unavailable Unavailable OBEN, T MARVIN MD Unavailable Unavailable OBEN, T MARVIN MD Unavailable Unavailable OBEN, T MARVIN MD Unavailable Unavailable OBEN, T MARVIN MD Unavailable Unavailable OBEN, T MARVIN MD Unavailable Unavailable OBEN, T MARVIN MD Unavailable Unavailable OBEN, T MARVIN MD Unavailable Unavailable OBEN, T MARVIN MD Unavailable Unavailable OBEN, T MARVIN MD Unavailable Unavailable Jose J POMPA MD Unavailable Unavailable Jose J POMPA MD Unavailable Unavailable Jose J POMPA MD Unavailable Unavailable Jose J POMPA MD Unavailable Unavailable Jose J POMPA MD Unavailable Unavailable Jose J POMPA MD Unavailable Unavailable Jose J POMPA MD Unavailable Unavailable Jose J POMPA MD Unavailable Unavailable Jose J POMPA MD Unavailable Unavailable Jose J POMPA MD Unavailable Unavailable Jose J POMPA MD Unavailable Unavailable Jose J POMPA MD Unavailable Unavailable Jose J POMPA MD Unavailable Unavailable Jose J POMPA MD Unavailable Unavailable Jose J POMPA MD Unavailable Unavailable Jose J POMPA MD Unavailable Unavailable Jose J POMPA MD Unavailable Unavailable Jose J POMPA MD Unavailable Unavailable Jose J POMPA MD Unavailable Unavailable Jose J POMPA MD Unavailable Unavailable ANTECOL, Alley BARRIENTOS MD Unavailable Unavailable ANTECOL, Alley BARRIENTOS MD Unavailable Unavailable ANTECOL, Alley BARRIENTOS MD Unavailable Unavailable ANTECOL, Alley BARRIENTOS MD Unavailable Unavailable ANTECOL, Alley BARRIENTOS MD Unavailable Unavailable ANTECOL, Alley BARRIENTOS MD Unavailable Unavailable ANTECOL, Alley BARRIENTOS MD Unavailable Unavailable ANTECOL, Alley BARRIENTOS MD Unavailable Unavailable ANTECOL, Alley BARRIENTOS MD Unavailable Unavailable ANTECOL, Alley BARRIENTOS MD Unavailable Unavailable ANTECOL, Alley BARRIENTOS MD Unavailable Unavailable ANTECOL, Alley BARRIENTOS MD Unavailable Unavailable ANTECOL, Alley BARRIENTOS MD Unavailable Unavailable ANTECOL, Alley BARRIENTOS MD Unavailable Unavailable ANTECOL, Alley BARRIENTOS MD Unavailable Unavailable ANTECOL, Alley BARRIENTOS MD Unavailable Unavailable ANTECOL, Alley BARRIENTOS MD Unavailable Unavailable ANTECOL, Alley BARRIENTOS MD Unavailable Unavailable ANTECOL, Alley BARRIENTOS MD Unavailable Unavailable ANTECOL, Alley BARRIENTOS MD Unavailable Unavailable ANTECOL, Alley BARRIENTOS MD Unavailable Unavailable ANTECOL, Alley BARRIENTOS MD Unavailable Unavailable ANTECOL, Alley BARRIENTOS MD Unavailable Unavailable ANTECOL, Alley BARRIENTOS MD Unavailable Unavailable ANTECOL, Alley BARRIENTOS MD Unavailable Unavailable ANTECOL, Alley BARRIENTOS MD Unavailable Unavailable ANTECOL, Alley BARRIENTOS MD Unavailable Unavailable ANTECOL, Alley BARRIENTOS MD Unavailable Unavailable ANTECOL, Alley BARRIENTOS MD Unavailable Unavailable ANTECOL, Alley BARRIENTOS MD Unavailable Unavailable ANTECOL, Alley BARRIENTOS MD Unavailable Unavailable ANTECOL, Alley BARRIENTOS MD Unavailable Unavailable ANTECOL, Alley BARRIENTOS MD Unavailable Unavailable ANTECOL, Alley BARRIENTOS MD Unavailable Unavailable ANTECOL, Alley BARRIENTOS MD Unavailable Unavailable ANTECOL, Alley BARRIENTOS MD Unavailable Unavailable ANTECOL, Alley BARRIENTOS MD Unavailable Unavailable ANTECOL, Alley BARRIENTOS MD Unavailable Unavailable ANTECOL, Alley BARRIENTOS MD Unavailable Unavailable ANTECOL, Alley BARRIENTOS MD Unavailable Unavailable ANTECOL, Alley BARRIENTOS MD Unavailable Unavailable ANTECOL, Alley BARRIENTOS MD Unavailable Unavailable ANTECOL, Alley BARRIENTOS MD Unavailable Unavailable ANTECOL, Alley BARRIENTOS MD Unavailable Unavailable ANTECOL, Alley BARRIENTOS MD Unavailable Unavailable ANTECOL, Alley BARRIENTOS MD Unavailable Unavailable ANTECOL, Alley BARRIENTOS MD Unavailable Unavailable ANTECOL, Alley BARRIENTOS MD Unavailable Unavailable ANTECOL, Alley BARRIENTOS MD Unavailable Unavailable ANTECOL, Alley BARRIENTOS MD Unavailable Unavailable ANTECOL, Alley BARRIENTOS MD Unavailable Unavailable ANTECOL, Alley BARRIENTOS MD Unavailable Unavailable ANTECOL, Alley BARRIENTOS MD Unavailable Unavailable ANTECOL, Alley BARRIENTOS MD Unavailable Unavailable BC, BHARATH FLOWERS Unavailable Unavailable BC, BHARATH FLOWERS Unavailable Unavailable BC, BHARATH FLOWERS Unavailable Unavailable BC, BHARATH FLOWERS Unavailable Unavailable BC, BHARATH FLOWERS Unavailable Unavailable BC, BHARATH FLOWERS Unavailable Unavailable BC, BHARATH FLOWERS Unavailable Unavailable BC, BHARATH FLOWERS Unavailable Unavailable BC, BHARATH FLOWERS Unavailable Unavailable BC, BHARATH FLOWERS Unavailable Unavailable BC, BHARATH FLOWERS Unavailable Unavailable BC, BHARATH FLOWERS Unavailable Unavailable BC, BHARATH FLOWERS Unavailable Unavailable BC, BHARATH FLOWERS Unavailable Unavailable BC, BHARATH FLOWERS Unavailable Unavailable BC, BHARATH FLOWERS Unavailable Unavailable BC, BHARATH FLOWERS Unavailable Unavailable BC, BHARATH FLOWERS Unavailable Unavailable BC, BHARATH FLOWERS Unavailable Unavailable BC, BHARATH FLOWERS Unavailable Unavailable BC, BHARATH FLOWERS Unavailable Unavailable BC, BHARATH FLOWERS Unavailable Unavailable BC, BHARATH FLOWERS Unavailable Unavailable BC, BHARATH FLOWERS Unavailable Unavailable BC, BHARATH FLOWERS Unavailable Unavailable BC, BHARATH FLOWERS Unavailable Unavailable BC, BHARATH FLOWERS Unavailable Unavailable BC, BHARATH FLOWERS Unavailable Unavailable BC, BHARATH FLOWERS Unavailable Unavailable BC, BHARATH FLOWERS Unavailable Unavailable BC, BHARATH FLOWERS Unavailable Unavailable BC, BHARATH FLOWERS Unavailable Unavailable BC, BHARATH FLOWERS Unavailable Unavailable BC, BHARATH FLOWERS Unavailable Unavailable BC, BHARATH FLOWERS Unavailable Unavailable BC, BHARATH FLOWERS Unavailable Unavailable BC, BHARATH FOLWERS Unavailable Unavailable BC, BHARATH FLOWERS Unavailable Unavailable BC, BHARATH FLOWERS Unavailable Unavailable BC, BHARATH FLOWERS Unavailable Unavailable BC, BHARATH FLOWERS Unavailable Unavailable BC, BHARATH FLOWERS Unavailable Unavailable BC, BHARATH FLOWERS Unavailable Unavailable BC, BHARATH FLOWERS Unavailable Unavailable BC, BHARATH FLOWERS Unavailable Unavailable BC, BHARATH FLOWERS Unavailable Unavailable BC, BHARATH FLOWERS Unavailable Unavailable BC, BHARATH FLOWERS Unavailable Unavailable BC, BHARATH FLOWERS Unavailable Unavailable BC, BHARATH FLOWERS Unavailable Unavailable BC, BHARATH FLOWERS Unavailable Unavailable BC, BHARATH FLOWERS Unavailable Unavailable BC, BHARATH FLOWERS Unavailable Unavailable BC, BHARATH FLOWERS Unavailable Unavailable BC, BHARATH FLOWERS Unavailable Unavailable BC, BHARATH FLOWERS Unavailable Unavailable BC, BHARATH FLOWERS Unavailable Unavailable BC, BHARATH FLOWERS Unavailable Unavailable BC, BHARATH FLOWERS Unavailable Unavailable BC, BHARATH FLOWERS Unavailable Unavailable BC, BHARATH FLOWERS Unavailable Unavailable BC, BHARATH FLOWERS Unavailable Unavailable BC, BHARATH FLOWERS Unavailable Unavailable Pisaniello, Mamie Israel MD Unavailable Unavailable Pisaniello, Mamie Israel MD Unavailable Unavailable Pisaniello, Mamie Israel MD Unavailable Unavailable Pisaniello, Mamie Israel MD Unavailable Unavailable Pisaniello, Mamie Israel MD Unavailable Unavailable Pisaniello, Mamie Israel MD Unavailable Unavailable Pisaniello, Mamie Israel MD Unavailable Unavailable Pisaniello, Mamie Israel MD Unavailable Unavailable Pisaniello, Mamie Israel MD Unavailable Unavailable Pisaniello, Mamie Israel MD Unavailable Unavailable Pisaniello, Mamie Israel MD Unavailable Unavailable Pisaniello, Mamie Israel MD Unavailable Unavailable Pisaniello, Mamie Israel MD Unavailable Unavailable Pisaniello, Mamie Israel MD Unavailable Unavailable Pisaniello, Mamie Israel MD Unavailable Unavailable Pisaniello, Mamie Israel MD Unavailable Unavailable Pisaniello, Mamie Israel MD Unavailable Unavailable Pisaniello, Mamie Israel MD Unavailable Unavailable Pisaniello, Mamie Israel MD Unavailable Unavailable Pisaniello, Mamie Israel MD Unavailable Unavailable Pisaniello, Mamie Irsael MD Unavailable Unavailable Pisaniello, Mamie Israel MD Unavailable Unavailable Pisaniello, Mamie Israel MD Unavailable Unavailable Pisaniello, Mamie Israel MD Unavailable Unavailable Pisaniello, Mamie Israel MD Unavailable Unavailable Pisaniello, Mamie Israel MD Unavailable Unavailable Pisaniello, Mamie Israel MD Unavailable Unavailable Pisaniello, Mamie Israel MD Unavailable Unavailable Pisaniello, Mamie Israel MD Unavailable Unavailable Pisaniello, Mamie Israel MD Unavailable Unavailable Pisaniello, Mamie Israel MD Unavailable Unavailable Pisaniello, Mamie Israel MD Unavailable Unavailable Pisaniello, Mamie Israel MD Unavailable Unavailable Pisaniello, Mamie Israel MD Unavailable Unavailable Pisaniello, Mamie Israel MD Unavailable Unavailable Pisaniello, Mamie Israel MD Unavailable Unavailable Pisaniello, Mamie Israel MD Unavailable Unavailable Pisaniello, Mamie Israel MD Unavailable Unavailable Pisaniello, Mamie Israel MD Unavailable Unavailable Pisaniello, Mamie Israel MD Unavailable Unavailable Pisaniello, Mamie Israel MD Unavailable Unavailable Pisaniello, Mamie Israel MD Unavailable Unavailable Pisaniello, Mamie Israel MD Unavailable Unavailable Pisaniello, Mamie Israel MD Unavailable Unavailable Pisaniello, Mamie Israel MD Unavailable Unavailable Pisaniello, Mamie Israel MD Unavailable Unavailable Pisaniello, Mamie Lindy MD Unavailable Unavailable Pisaniello, Mamie Lindy MD Unavailable Unavailable Pisaniello, Mamie Lindy MD Unavailable Unavailable Pisaniello, Mamie Lindy MD Unavailable Unavailable Pisaniello, Mamie Lindy MD Unavailable Unavailable Pisaniello, Mamie Lindy MD Unavailable Unavailable Pisaniello, Mamie Lindy MD Unavailable Unavailable Pisaniello, Mamie Lindy MD Unavailable Unavailable Pisaniello, Mamie Lindy MD Unavailable Unavailable Pisaniello, Mamie Lindy MD Unavailable Unavailable Pisaniello, Mamie Lindy MD Unavailable Unavailable Pisaniello, Mamie Lindy MD Unavailable Unavailable Pisaniello, Mamie Lindy MD Unavailable Unavailable Pisaniello, Mamie Lindy MD Unavailable Unavailable Pisaniello, Mamie Lindy MD Unavailable Unavailable Pisaniello, Mamie Lindy MD Unavailable Unavailable Pisaniello, Mamie Lindy MD Unavailable Unavailable Pisaniello, Mamienalini Israel MD Unavailable Unavailable Pisaniello, Mamienalini Israel MD Unavailable Unavailable Alex, Johanny Barrientos PH.D., M.D. Unavailable Unavailable Alex, Johanny Barrientos PH.D., M.D. Unavailable Unavailable Alex, Johanny Barrientos PH.D., M.D. Unavailable Unavailable Alex, Johanny Barrientos PH.D., M.D. Unavailable Unavailable Alex, Johanny Barrientos PH.D., M.D. Unavailable Unavailable Alex, Johanny Barrientos PH.D., M.D. Unavailable Unavailable Alex, Johanny Barrientos PH.D., M.D. Unavailable Unavailable Alex, Johanny Barrientos PH.D., M.D. Unavailable Unavailable Alex, Johanny Barrientos PH.D., M.D. Unavailable Unavailable Alex, Johanny Barrientos PH.D., M.D. Unavailable Unavailable Alex, Johanny Barrientos PH.D., M.D. Unavailable Unavailable Alex, Johanny Barrientos PH.D., M.D. Unavailable Unavailable Alex, Johanny Barrientos PH.D., M.D. Unavailable Unavailable Alex, Johanny Barrientos PH.D., M.D. Unavailable Unavailable Alex, Johanny Barrientos PH.D., M.D. Unavailable Unavailable Alex, Johanny Barrientos PH.D., M.D. Unavailable Unavailable Alex, Johanny Barrientos PH.D., M.D. Unavailable Unavailable Alex, Johanny Barrientos PH.D., M.D. Unavailable Unavailable Alex, Johanny Barrientos PH.D., M.D. Unavailable Unavailable Alex, C Iliana PH.D., M.D. Unavailable Unavailable Alex, C Iliana PH.D., M.D. Unavailable Unavailable Alex, C Iliana PH.D., M.D. Unavailable Unavailable Alex, C Iliana PH.D., M.D. Unavailable Unavailable Alex, C Iliana PH.D., M.D. Unavailable Unavailable Alex, C Iliana PH.D., M.D. Unavailable Unavailable Alex, C Iliana PH.D., M.D. Unavailable Unavailable Alex, C Iliana PH.D., M.D. Unavailable Unavailable Alex, C Iliana PH.D., M.D. Unavailable Unavailable Alex, C Iliana PH.D., M.D. Unavailable Unavailable Alex, C Iliana PH.D., M.D. Unavailable Unavailable Alex, C Iliana PH.D., M.D. Unavailable Unavailable Alex, C Iliana PH.D., M.D. Unavailable Unavailable Alex, C Iliana PH.D., M.D. Unavailable Unavailable Alex, C Iliana PH.D., M.D. Unavailable Unavailable Alex, C Iliana PH.D., M.D. Unavailable Unavailable Alex, C Iliana PH.D., M.D. Unavailable Unavailable Alex, C Iliana PH.D., M.D. Unavailable Unavailable Alex, C Iliana PH.D., M.D. Unavailable Unavailable Alex, C Iliana PH.D., M.D. Unavailable Unavailable Alex, C Iliana PH.D., M.D. Unavailable Unavailable Alex, C Iliana PH.D., M.D. Unavailable Unavailable Alex, C Iliana PH.D., M.D. Unavailable Unavailable Alex, C Iliana PH.D., M.D. Unavailable Unavailable Alex, C Iliana PH.D., M.D. Unavailable Unavailable Alex, C Iliana PH.D., M.D. Unavailable Unavailable Alex, C Iliana PH.D., M.D. Unavailable Unavailable Alex, C Iliana PH.D., M.D. Unavailable Unavailable Alex, C Iliana PH.D., M.D. Unavailable Unavailable Alex, C Iliana PH.D., M.D. Unavailable Unavailable Alex, C Iliana PH.D., M.D. Unavailable Unavailable Alex, C Iliana PH.D., M.D. Unavailable Unavailable Alex, C Iliana PH.D., M.D. Unavailable Unavailable Alex, C Iliana PH.D., M.D. Unavailable Unavailable Alex, C Iliana PH.D., M.D. Unavailable Unavailable Alex, C Iliana PH.D., M.D. Unavailable Unavailable Alex, C Iliana PH.D., M.D. Unavailable Unavailable Alex, C Iliana PH.D., M.D. Unavailable Unavailable Alex, C Iliana PH.D., M.D. Unavailable Unavailable Alex, C Iliana PH.D., M.D. Unavailable Unavailable Alex, C Iliana PH.D., M.D. Unavailable Unavailable Alex, C Iliana PH.D., M.D. Unavailable Unavailable Alex, C Iliana PH.D., M.D. Unavailable Unavailable Alex, C Iliana PH.D., M.D. Unavailable Unavailable Alex, C Iliana PH.D., M.D. Unavailable Unavailable Alex, C Iliana PH.D., M.D. Unavailable Unavailable Alex, C Iliana PH.D., M.D. Unavailable Unavailable Alex, C Iliana PH.D., M.D. Unavailable Unavailable Alex, C Iliana PH.D., M.D. Unavailable Unavailable Alex, C Iliana PH.D., M.D. Unavailable Unavailable Alex, C Iliana PH.D., M.D. Unavailable Unavailable Alex, C Iliana PH.D., M.D. Unavailable Unavailable Alex, C Iliana PH.D., M.D. Unavailable Unavailable Alex, C Iliana PH.D., M.D. Unavailable Unavailable Alex, C Iliana PH.D., M.D. Unavailable Unavailable Alex, C Iliana PH.D., M.D. Unavailable Unavailable Alex, C Iliana PH.D., M.D. Unavailable Unavailable Alex, C Iliana PH.D., M.D. Unavailable Unavailable Alex, C Iliana PH.D., M.D. Unavailable Unavailable Alex, C Iliana PH.D., M.D. Unavailable Unavailable Alex, C Iliana PH.D., M.D. Unavailable Unavailable Alex, C Iliana PH.D., M.D. Unavailable Unavailable Alex, C Iliana PH.D., M.D. Unavailable Unavailable Re-disclosure Warning The records that you are about to access may contain information from federally-assisted alcohol or drug abuse programs. If such information is present, then the following federally mandated warning applies: This information has been disclosed to you from records protected by federal confidentiality rules (42 CFR part 2). The federal rules prohibit you from making any further disclosure of this information unless further disclosure is expressly permitted by the written consent of the person to whom it pertains or as otherwise permitted by 42 CFR part 2. A general authorization for the release of medical or other information is NOT sufficient for this purpose. The Federal rules restrict any use of the information to criminally investigate or prosecute any alcohol or drug abuse patient.The records that you are about to access may contain highly sensitive health information, the redisclosure of which is protected by Article 27-F of the [facility] [place] Public Health law. If you continue you may have access to information: Regarding HIV / AIDS; Provided by facilities licensed or operated by the [facility] [place] Office of Mental Health; or Provided by the [facility] [place] Office for People With Developmental Disabilities. If such information is present, then the following [facility] [place] mandated warning applies: This information has been disclosed to you from confidential records which are protected by state law. State law prohibits you from making any further disclosure of this information without the specific written consent of the person to whom it pertains, or as otherwise permitted by law. Any unauthorized further disclosure in violation of state law may result in a fine or halfway sentence or both. A general authorization for the release of medical or other information is NOT sufficient authorization for further disc losure. Allergies and Adverse Reactions Type Description Substance Reaction Status Data Source(s ) Drug allergy No Known Drug Allergies No Known Drug Allergies [facility] Food allergy No Known Food Allergies No Known Food Allergies [facility] Family History Family Member Name Family Member Gender Family Member Status Date o f Status Description Data Source(s) Unknown Condition [facility] Unknown Condition [facility] Unknown Condition [facility] Unknown Condition [facility] Unknown Condition [facility] Condition [facility] Condition [facility] Condition [facility] Condition [facility] Condition [facility] Condition [facility] Condition [facility] Unknown Condition [facility] Unknown Condition [facility] Unknown Condition [facility] Condition [facility] Unknown Condition [facility] Unknown Condition [facility] Unknown Condition [facility] Unknown Condition [facility] Unknown Condition [facility] Unknown Condition [facility] Unknown Condition [facility] Unknown Condition [facility] Unknown Condition [facility] Unknown Condition [facility] Unknown Condition [facility] Unknown Condition [facility] Unknown Condition [facility] Unknown Condition [facility] Unknown Condition [facility] Unknown Condition [facility] Unknown Condition [facility] Unknown Condition [facility] Unknown Condition [facility] Encounters Encounter Providers Location Date Indications Data Source(s ) Outpatient Attender: BHARATH YANCEY MDReferrer: BHARATH YANCEY MD 12/12/2020 07:26:[address] [facility] Outpatient Attender: Lindy Quintana MDReferrer: BHARATH YANCEY MD 12/11/2020 11:45:00 AM EDT - 12/11/2020 11:59:00 PM EDT [facility] Outpatient Attender: BHARATH YANCEY MDReferrer: BHARATH YANCEY MD 11/10/2020 02:10:[address] [facility] Outpatient Attender: MIRIAN CHESTER Main Office 11/10/2020 1 0:15:00 AM EDT [facility] ([facility]) Outpatient Attender: Iliana Johnson PH.D., M.Doris Palmer/Chasity/Bowen barr/Radha 11/04/2020 03:00:00 PM EDT [facility] ([facility] ) Outpatient Attender: MARVIN POMPA MD 10/23/19 02:40:00 PM EDT - 10/22/2020 02:40:00 PM EDT [facility] Outpatient Attender: Dagoberto Rooney MD Main office [facility] 10/10/2020 11:45:00 AM EDT [facility] ([facility] LORENZO hines) Outpatient Attender: Iliana Johnson PH.Nancy., M.Doris Palmer/[place]/A ngel/Reindl 10/07/2020 02:45:00 PM EDT [facility] ([facility] Diane raya ) Outpatient Attender: MARC HICKS 09/24/2020 07:55:00 AM EDT CKD STAGE 3 [facility] CKD STAGE 3 Outpatient Attender: Iliana Johnson PH.D., M.D. Estela/[place]/A ngel/Reindl 09/17/2020 11:15:00 AM EDT [facility] ([facility] ) Outpatient Attender: BHARATH YANCEY MD 09/16/2020 01:01:00 PM EDT S/P FALL, NASAL TRAUMA [facility] S/P FALL, NASAL TRAUMA Outpatient Attender: BHARATH Arshaderrer: BHARATH YANCEY MD 09/16/2020 10:49:00 AM EDT - 09/16/2020 01:48:00 PM EDT [facility] Office Visit Attender: Dagoberto Rooney MD Main office [facility] 07/10/2020 02:30:00 PM EDT [facility] ([facility]ZO hines) Outpatient Attender: BHARATH DIXONeferrer: BHARATH YANCEY MD 05/21/2020 11:22:00 AM EST - 05/21/2020 12:14:00 PM EST [facility] Outpatient Attender: ILIANA PARADA MDAttender: BHARATH YANCEY MD 05/21/2020 10:26:00 AM EST N18.30,I50.9,R60.0,I50.[facility],I50.9,R60.0,I50.32 Outpatient Attender: ILIANA PARADA MD Main Office 05/09/2020 11:30:00 AM EST [facility] ([facility]) Outpatient Attender: MARVIN POMPA MD 04/23/19 02:01:00 PM EST - 04/23/2020 02:01:00 PM EST [facility] Outpatient Attender: Obdulia Truong MS, RPA-C Family Francia raya 04/23/2020 01:00:00 PM EST [facility] ([facility] Outpatient Attender: BHARATH YANCEY MD 04/16/2020 02:15:00 PM ES T edema R60.9 [facility] edema R60.9 Outpatient Attender: BHARATH YANCEY MDReferrer: BHARATH YANCEY MD 04/16/2020 01:05:00 PM EST - 04/16/2020 02:11:00 PM [facility] Outpatient Attender: BHARATH YANCEY MDReferrer: BHARATH YANCEY MD 02/08/2020 02:52:00 PM EST - 02/08/2020 04:44:00 PM [facility] Office Visit Attender: Dagoberto Rooney MD Main office - [place] 01/23/2020 03:00:00 PM EDT [facility] ([facility], ) Outpatient Attender: BHARATH YANCEY MD 11/09/2019 12:30:00 PM ED T [facility] Medications Medication Brand Name Start Date Product Form Dose Route Admi nistrative Instructions Pharmacy Instructions Status Indications Reaction Description Data Source(s) Cholecalciferol 1000 UNT Oral Capsule Vitamin D3 11/09/2020 12:00:00 AM EDT ORAL active [facility] ([facility] Multi Vitamin And Minerals 11/09/2020 12:00:00 AM EDT active [facility] ([facility]) Melatonin 10 MG Oral Tablet Melatonin 11/09/2020 12:00:00 AM EDT ORAL active [facility] ([facility]) coenzyme Q10 200 MG Oral Capsule Co-Enzyme Q10 11/09/2020 12:00:00 AM EDT ORAL active [facility] ([facility]) Docusate Sodium 100 MG Oral Tablet Docusate Sodium 11/09/2020 12:00 :00 AM EDT ORAL active [facility] ([facility]) Amoxicillin 500 MG Oral Capsule Amoxicillin 09/17/2020 12:00:00 AM EDT ORAL completed [facility] ([facility] ) Levothyroxine Sodium 0.125 MG Oral Tablet Levothyroxine 09/16/2020 12:44:45 PM EDT 125 MCG active [facility] 24 HR mirabegron 25 MG Extended Release Oral Tablet Mirabegron (Myrbetriq) 25 mg tablet extended release 24 hr Mirabegron (Myrbetriq) 25 mg tablet exte nded release 24 hr 05/26/2020 03:09:28 PM EST 25 MG active [facility] Hydrochlorothiazide 25 MG / Triamterene 37.5 MG Oral Capsule Triamterene-Hydrochlorothiazid Triamterene-Hydrochlorothiazid 05/26/2020 03:09:20 PM EST 1 CAP completed [facility] atorvastatin 20 MG Oral Tablet Atorvastatin Atorvastatin 05/26/2020 03:09:13 PM EST 20 MG active [facility] Hydrochlorothiazide 25 MG / Triamterene 37.5 MG Oral Capsule Triamterene-Hydrochlorothiazid Triamterene-Hydrochlorothiazid 05/23/2020 09:29:27 AM EST 1 CAP completed [facility] 24 HR mirabegron 25 MG Extended Release Oral Tablet Mirabegron (Myrbetriq) 25 mg tablet extended release 24 hr Mirabegron (Myrbetriq) 25 mg tablet exte nded release 24 hr 05/23/2020 09:29:24 AM EST 25 MG completed [facility] atorvastatin 20 MG Oral Tablet Atorvastatin Atorvastatin 05/23/2020 09:29:21 AM EST [address] [facility] Hydrochlorothiazide 25 MG / Triamterene 37.5 MG Oral Capsule Triamterene-Hydrochlorothiazid Triamterene-Hydrochlorothiazid 05/20/2020 01:36:01 PM EST 1 CAP completed [facility] atorvastatin 20 MG Oral Tablet Atorvastatin Atorvastatin 05/09/2020 02:59:15 PM EST [address] [facility] Hydrochlorothiazide 25 MG / Triamterene 37.5 MG Oral C apsule Triamterene/Hydrochlorothiazide 05/08/2020 12:00:00 AM EST ORAL active [facility] ([facility]) atorvastatin 20 MG Oral Tablet Atorvastatin Calcium 05/08/2020 1 2:00:00 AM EST ORAL active [facility] ( [facility]) Aspirin 81 MG Chewable Tablet Aspirin 05/08/2020 12:00:00 AM EST ORAL active [facility] ([facility]) 24 HR mirabegron 25 MG Extended Release Oral Tablet [Myrbetr iq] Myrbetriq 05/08/2020 12:00:00 AM EST ORAL active [facility] ([facility]) Carbidopa 25 MG / Levodopa 100 MG Oral Tablet Carbidopa-Levo dopa 05/08/2020 12:00:00 AM EST ORAL active [facility] ([facility]) ammonium lactate 120 MG/ML Topical Lotion Ammonium Lactate A mmonium Lactate 04/16/2020 02:00:23 PM EST 1 APPLIC active [facility] ammonium lactate 120 MG/ML Topical Lotion Ammonium Lactate A mmonium Lactate 04/16/2020 02:00:23 PM EST 1 APPLIC active [facility] Carbidopa 25 MG / Levodopa 100 MG Disintegrating Oral Tablet Carbidopa-Levodopa Carbidopa-Levodopa 04/16/2020 01:20:35 PM EST 1 TAB acti ve [facility] Carbidopa 25 MG / Levodopa 100 MG Disintegrating Oral Tablet Carbidopa-Levodopa Carbidopa-Levodopa 04/16/2020 01:20:35 PM EST 1 TAB act ve [facility] Comp.Stocking,Knee,Long,Medium 02/08/2020 04:35:56 PM EST 0 active [facility] Comp.Stocking,Knee,Long,Medium 02/08/2020 04:35:56 PM EST 0 active [facility] l Comp.Stocking,Knee,Long,Medium 02/08/2020 04:35:56 PM EST 0 active [facility] l Levothyroxine Sodium 0.125 MG Oral Tablet Levothyroxine 12/13/2019 01:20:54 PM EDT 125 MCG active [facility] Levothyroxine Sodium 0.125 MG Oral Tablet Levothyroxine 12/13/2019 01:20:54 PM EDT 125 MCG completed [facility] Levothyroxine Sodium 0.125 MG Oral Tablet Levothyroxine 12/13/2019 01:20:54 PM EDT 125 MCG active [facility] Levothyroxine Sodium 0.125 MG Oral Tablet Levothyroxine 09/25/2019 10:37:19 AM EDT 125 MCG completed [facility] Levothyroxine Sodium 0.125 MG Oral Tablet Levothyroxine 09/25/2019 10:37:19 AM EDT 125 MCG completed [facility] Levothyroxine Sodium 0.125 MG Oral Tablet Levothyroxine 09/25/2019 10:37:19 AM EDT 125 MCG completed [facility] atorvastatin 20 MG Oral Tablet Atorvastatin Atorvastatin 05/14/2019 03:26:48 PM EST [address] [facility] Hydrochlorothiazide 25 MG / Triamterene 37.5 MG Oral Capsule Triamterene- Hydrochlorothiazid (Dyazide) 37.5-25 mg capsule Triamterene-Hydrochlorothiazid (Dyazide) 37.5-25 mg capsule 05/14/2019 03:26:26 PM EST 1 CAP completed [facility] 24 HR mirabegron 25 MG Extended Release Oral Tablet Mirabegron (Myrbetriq) 25 mg tablet extended release 24 hr Mirabegron (Myrbetriq) 25 mg tablet exte nded release 24 hr 05/14/2019 03:26:07 PM EST 25 MG completed [facility] Melatonin 10 MG Oral Tablet Melatonin 01/09/2018 02:26:00 PM EDT [address] [facility] Melatonin 10 MG Oral Tablet Melatonin 01/09/2018 02:26:00 PM EDT [address] [facility] Melatonin 10 MG Oral Tablet Melatonin 01/09/2018 02:26:00 PM EDT [address] [facility] Carbidopa 25 MG / Levodopa 100 MG Disintegrating Oral Tablet Carbidopa-Levodopa Carbidopa-Levodopa 06/17/2017 02:13:00 PM EDT [address] [facility] Carbidopa 25 MG / Levodopa 100 MG Disintegrating Oral Tablet Carbidopa-Levodopa Carbidopa-Levodopa 06/17/2017 02:13:00 PM EDT [address] [facility] Insurance Providers Payer name Policy type / Coverage type Policy ID Covered alliance party ID Covered alliance party's relationship to marshall Policy Marshall Plan Information [employer] [id number] Medicare Natl Govt Servic Medicare Primary [id number] Self [id number] Medicare Natl Govt Servic Medicare Primary [id number] Self Medicare Natl Govt Servic Medicare Primary [id number] Self [id number] [employer] Medigap Part B [id number] Self [id number] [employer] Medigap Part B [id number] Self [id number] MEDICARE [id number] SP [id number] A [employer] Medigap Part B [id number] Self [id number] [facility] [id number] SP [id number] A MEDICARE [id number] [id number] 18 [id number] MEDICARE PART A [facility] [id number] 18 [id number] [facility] [id number] SP [id number] Problems, Conditions, and Diagnoses Code Display Name Description Problem Type Effective Dates Data Source(s) Z71.3 Dietary management surveillance Dietary management sam veillance Problem 11/10/2020 12:00:00 AM EDT [facility] ([facility]) R47.02 Disturbance in speech Disturbance in speech Problem 10/07/2020 12:00:00 AM EDT [facility] ([facility], ) J34.2 Deviated nasal septum Deviated nasal septum Problem 09/17/2020 12:00:00 AM EDT [facility] ([facility], ) S02.2xxB Open fracture of nasal bones Open fracture of nasal mercedez kori Problem 09/17/2020 12:00:00 AM EDT [facility] ([facility], ) I50.32 Chronic diastolic heart failure Chronic diastolic hear t failure Problem 05/09/2020 12:00:00 AM EST [facility] ([facility]) I10 Essential hypertension Essential hypertension Problem 05/09/2020 12:00:00 AM EST [facility] ([facility]) I95.1 Orthostatic hypotension Orthostatic hypotension Proble m 05/09/2020 12:00:00 AM EST [facility] ([facility]) R60.0 Edema Edema Problem 05/09/2020 12:00:00 AM ES T [facility] ([facility]) R94.31 Electrocardiogram abnormal Electrocardiogram abnormal Problem 05/09/2020 12:00:00 AM EST [facility] ([facility]) I44.0 First degree atrioventricular block First degree atrioventricular block Problem 05/09/2020 12:00:00 AM EST [facility] ([facility] R35.0 Increased frequency of urination Increased frequency o f urination Problem 04/23/2020 12:00:00 AM EST [facility] ([facility]) Surgeries/Procedures Procedure Description Date Indications Data Source(s) ECG ROUTINE ECG W/LEAST 12 LDS W/I&R 11/10/2020 12:00: 00 AM EDT [facility] ([facility]) OFFICE OUTPATIENT VISIT 25 MINUTES 11/10/2020 12:00:00 AM EDT [facility] ([facility]) OFFICE OUTPATIENT VISIT 15 MINUTES 11/04/2020 12:00:00 AM EDT [facility] ([facility] [place], ) OFFICE OUTPATIENT VISIT 25 MINUTES 10/10/2020 12:00:00 AM EDT [facility] ([facility], ) OFFICE OUTPATIENT VISIT 15 MINUTES 10/07/2020 12:00:00 AM EDT [facility] ([facility] [place], ) Echography of kidney (procedure) 09/24/2020 08:14:[address] [facility] OFFICE OUTPATIENT NEW 45 MINUTES 09/17/2020 12:00:00 A M [facility] ) Diagnostic radiography of nasal bones (procedure) 09/16/2020 01:08:[address] [facility] ECHO TTHRC R-T 2D W/WOM-MODE COMPL SPEC&COLR DOP 08/20 12:00:00 AM EDT [facility] ([facility]) PHYSICIAN TELEPHONE EVALUATION 11-20 MIN 07/10/2020 12 :00:00 AM EDT [facility] ([facility], ) ECG ROUTINE ECG W/LEAST 12 LDS W/I&R 05/09/2020 12:00: 00 AM EST [facility] ([facility]) Arterial Pressure Waveform Analysis For Assessment Of Centra l Art 05/09/2020 12:00:00 AM EST [facility] ([facility]) OFFICE OUTPATIENT NEW 45 MINUTES 05/09/2020 12:00:00 A M EST [facility] ([facility]) Ultrasound scan of lower limb veins (procedure) 2020 02:42:00 PM EST [facility] Results ID Date Data Source [id number] 12/12/2020 09:19:00 AM EDT [facility] Patient Name: BHARATH BHARDWAJ : 1940 Sex: M Pt Unit #: [id number] Location[facility] Provider: Visit Date/Time: 12/12/20 Primary Insurance: MEDICARE [employer] Secondary Insurance: [facility] Intake Intake Visit Reasons: Telemed Visit Nurse Note: patient lives with family. he is off his B/P meds. daughter said that he has lost weight, no dizzy spells, and decreased edema in lower extremities. not wearing compression stockings and he is very active and walks a lot. the whole family tested positive for COVID. patients daughter is monitoring his b/p , oxygen and temperature and if anything changes she knows to go to the ER. patient does not want a call back from provider to finish tele med visit. Mother Repairer Required: No Accompanied by: Daughter Is patient in pain?: No Allergies No Known Drug Allergies Allergy (Unverified 11/10/20 15:04) No Known Food Allergies Allergy (Unverified 11/10/20 15:04) Fall Risk History of falls: No Ambulatory Aid:: Hangs onto Furniture Gait/Transferring:: Impaired (parkinson disease) PHQ-2/9 Over the last 2 weeks, how often have you been bothered by any of the following problems? 1. Little interest or pleasure in doing things: not at all 2. Feeling down, depressed, or hopeless: not at all Total score: 0 HIV Testing Offer - ages 13- 64 Requirement for HIV testing offer been met?: Not in age range SBIRT Annual Questionnaire Are you currently in recovery for alcohol or substance use?: No How many times in the past year have you had 5 or more drinks in a day?: None How many times in the past year have you used a recreational drug or used a prescription medication for nonmedical reasons?: None Do you need a note to return Do you need a note to return to daycare/school/sports/work: No Telephone visit Telephone/Virtual Visit Patient consented to consult via telephone or video: Yes Real-time synchronous services were performed via: Audio only (Phone) Names of people present:: mary dtr Location of provider: Provider office Location of the Patient: Home Coronavirus Screening Screening Are you currently positive or on isolation for COVID ?: Yes Do you have any NEW signs of one or more of the following?: cough Do you have NEW signs of at least two of the following?: congestion and tiredness [facility] Medical History (Updated 12/11/20 @ 18:13 by Lindy Quintana MD) Acquired hypothyroidism (01/21/17) Allergic rhinitis Anemia Anemia, unspecified (01/21/17) Cervical radiculopathy at C5 (02/24/17) CKD (chronic kidney disease) stage 3, GFR 30-59 ml/min Congestive heart failure Constipation (09/07/16) Coronary artery disease involving [place] heart without angina pectoris (01/21/17) Dementia Dementia without behavioral disturbance (01/21/17) Disorder of thyroid gland Dry skin Edema of both legs Frequency of micturition Hearing loss Hyperlipidemia Hyperlipidemia, unspecified (01/21/17) Insomnia Insomnia, unspecified Neck pain Obesity Orthostatic hypotension Orthostatic hypotension (01/21/17) other cv history (08/02/89) Parkinsons disease Parkinsons disease (01/21/17) Pedal edema Polypharmacy (06/17/17) Screen for colon cancer Stage 3 chronic kidney disease (06/17/17) Weight loss (01/21/17) Surgical History (Updated 05/21/20 @ 11:56 by Bharath Yancey DO) H/O angioplasty Renal cyst, left Family History Other Atherosclerosis Dementia Hypertension Hypothyroidism Liver cancer Social History (Updated 09/16/20 @ 12:44 by Bharath Yancey DO) Does the Patient have a Healthcare Proxy: Yes (SON,JAZMINE AND MARY) Does Patient have a DNR?: Yes Does Patient have a Living Will?: Yes Does the Patient have a MOLST?: No Advance Directives on File or in chart?: No adopted: No caregiver/support person: No foster care: No household members: none housing: house marital status: / lives independently: Yes number of children: 3 number of grandchildren: 6 highest education level completed: high school graduate service: Yes senior care: No current occupational status: retired pets and animals: Yes pets and animals: cat(s) do you think of yourself as: straight/heterosexual current gender identity: male HPI Additional HPI HPI Details: telemedicine appointment patient was not seen in clinic patient only spoke to the nurse today Coding Level of Care Code 43489 Est Pt Limited Comp Additional Codes Intake - Is patient in pain?: No (1126F) Comment patient was not seen in clinic today; patient did not speak on telephone with PCP. <Electronically signed by Bharath Yancey DO> 12/12/20 1044 Name Value Range Interpretation Code Description Data Carin rce(s) Supporting Document(s) ID Date Data Source [id number] 12/11/2020 05:13:00 PM EDT [facility] Patient Name: BHARATH BHARDWAJ : 1940 Sex: M Pt Unit #: [id number] Location:[facility] Provider: Visit Date/Time: 12/11/20 Primary Insurance: MEDICARE [employer] Secondary Insurance: [facility] ADDENDUM I spoke to public Schoo about this family. We would like them to get tested here but they declined.[facility] cannot count them in the [facility]'s statistics unless they have an official test. We would be glad to see them at any point if they choose. <Electronically signed by Lindy Quintana MD> 12/12/20 1405 Intake Intake Visit Reasons: Telemed Visit Nurse Note: see prev notes. spoke with dtr mary who states he has a freq prod cough. o2 sat of 97-97 p 63 bp 126/73. temp 100.3. has not prev had a fever. dtr feels congestion is going deeper into his lungs. family is enc him to drink and eat,take deep breaths routinely and move around. pt has dementia. Mother Repairer Required: No Is patient in pain?: No Allergies No Known Drug Allergies Allergy (Unverified 11/10/20 15:04) No Known Food Allergies Allergy (Unverified 11/10/20 15:04) HIV Testing Offer - ages 13-64 Requirement for HIV testing offer been met?: Not in age range Telephone visit Telephone/Virtual Visit Patient consented to consult via telephone or video: Yes Real-time synchronous services were performed via: Audio only (Phone) Location of provider: Provider office Location of the Patient: Home Total time spent on medical discussion: 15 [facility] Medical History (Updated 12/11/20 @ 18:13 by Lindy Quintana MD) Acquired hypothyroidism (01/21/17) Allergic rhin itis Anemia Anemia, unspecified (01/21/17) Cervical radiculopathy at C5 (02/24/17) CKD (chronic kidney disease) stage 3, GFR 30-59 ml/min Congestive heart failure Constipation (09/07/16) Coronary artery disease involving [place]ak heart without angina pectoris (01/21/17) Dementia Dementia without behavioral disturbance (01/21/17) Disorder of thyroid gland Dry skin Edema of both legs Frequency of micturition Hearing loss Hyperlipidemia Hyperlipidemia, unspecified (01/21/17) Insomnia Insomnia, unspecified Neck pain Obesity Orthostatic hypotension Orthostatic hypotension (01/21/17) other cv history (08/02/89) Parkinsons disease Parkinsons disease (01/21/17) Pedal edema Polypharmacy (06/17/17) Screen for colon cancer Stage 3 chronic kidney disease (06/17/17) Weight loss (01/21/17) Surgical History (Updated 05/21/20 @ 11:56 by Bharath Yancey DO) H/O angioplasty Renal cyst, left Family History Other Atherosclerosis Dementia Hypertension Hypothyroidism Liver cancer Social History (Updated 09/16/20 @ 12:44 by Bharath Yancey DO) Does the Patient have a Healthcare Proxy: Yes ([place]) Does Patient have a DNR?: Yes Does Patient have a Living Will?: Yes Does the Patient have a MOLST?: No Advance Directives on File or in chart?: No adopted: No caregiver/support person: No foster care: No household members: none housing: house marital status: / lives independently: Yes number of children: 3 number of grandchildren: 6 highest education level completed: high school graduate service: Yes senior care: No current occupational status: retired pets and animals: Yes pets and animals: cat(s) do you think of yourself as: straight/heterosexual current gender identity: male HPI Additional HPI HPI Details: Entire family has COVID and tested positive 12/08/20. No one has been vaccinated. He tested positive this AM. He has a cough today. He is very tired. Other people are on zithromax and steroids so they want that for him. He is breathing fine and his oxygen saturation is good. They are giving him zinc and vitamin C. Assessment Plan Assessment Plan (1) COVID-19: Status: Acute Code(s): U07.1 - COVID-19 SNOMED Code(s): 403894525 Category: Medical Plan: We talked about the options available. Unfortunately, we are not doing monocolonal antibodies now because they have lost effectiveness with the delta variant. She could take him to the hospital and we could start remdesivir, which is more effective when used early, but she does not think that he is sick enough to go to the hospital. antibiotics have not been shown to be effective for viral infections, and may cause side effects, and resistance to antibiotics in the future. If he gets any worse at all, he should go to the hospital, He may need oxygen. He may need steroids if he does not improve in the next week. Plan: Symptomatic treatment and go to ER if he worsens Orders Follow Up: 1 Week Time spent Total time spent on medical discussion: 15 Coding Level of Care Code Telemed Visit (11-20 min) Diagnoses COVID-19 U07.1 Additional Codes Intake - Is patient in pain?: No (1126F) <Electronically signed by Lindy Quintana MD> 12/11/20 8940 Name Value Range Interpretation Code Description Data Carin rce(s) Supporting Document(s) ID Date Data Source [id number] 11/10/2020 02:42:00 PM EDT [facility] Patient Name: BHARATH BHARDWAJ : 1940 Sex: M Pt Unit #: [id number] Location:[facility] Provider: Visit Date/Time: 11/10/20 Primary Insurance: MEDICARE [employer] Secondary Insurance: [facility] Intake Vital Signs 11/10/20 14:43 Current Height 5 ft 3 in Current Weight 155 lb Weight Measurement Method Standing Scale BMI 27.4 BP 120/60 Blood Pressure Location Lt brachial Position Sitting Respiration 18 Pulse 50 L Pulse Strength Normal Pulse Source Pulse Oximeter Pulse Oximetry (%) 95 Oxygen Delivery Method room air Intake Visit Reasons: Test Results Nurse Note: pt is here today to discuss cardiologyit was recommended that he discontinue triamterene/hctz Is patient in pain?: No Allergies No Known Drug Allergies Allergy (Unverified 11/10/20 15:04) No Known Food Allergies Allergy (Unverified 11/10/20 15:04) Medications - Last Reconciled 11/10/20 by Bharath Yancey DO ammonium lactate 12% 1 applic topical BID PRN aspirin (Aspir-) 81 mg PO DAILY 90 days atorvastatin 20 mg PO HS carbidopa-levodopa 25-100 mg 1 tab PO .6 a day 90 days comp.stocking,knee,long,medium As directed levothyroxine 125 mcg PO QDAY [lionsmane 500 mg BID] mirabegron ER (Myrbetriq) 25 mg PO DAILY multivitamin (Daily Value) 1 ea PO DAILY triamterene-hydrochlorothiazid 37.5-25 mg 1 cap PO QAM Fall Risk History of falls: No Ambulatory Aid:: None Gait/Transferring:: Normal Medications:: Antihypertensives HIV Testing Offer - ages 13-64 Requirement for HIV testing offer been met?: Not in age range Coronavirus Screening Screening Are you currently positive or on isolation for COVID ?: No Do you have any NEW signs of one or more of the following?: no symptoms Do you have NEW signs of at least two of the following?: no symptoms HPI Additional HPI HPI Details: agree with ice cream freezer helper intake ent did a barium swallowing and found a pocket in the GI tract recommending flexion of the neck when drinking with straw, smaller bites also needs to have an EGD to further evaluate saw feed in worker and was recommended to d/c triamterene/hctz and begin low dose torsemide PFSH Medical History (Updated 11/10/20 @ 17:38 by Bharath Yancey DO) Acquired hypothyroidism (01/21/17) Allergic rhinitis Anemia Anemia, unspecified (01/21/17) Cervical radiculopathy at C5 (02/24/17) CKD (chronic kidney disease) stage 3, GFR 30-59 ml/min Congestive heart failure Constipation (09/07/16) Coronary artery disease involving [place] heart without angina pectoris (01/21/17) Dementia Dementia without behavioral disturbance (01/21/17) Disorder of thyroid gland Dry skin Edema of both legs Frequency of micturition Hearing loss Hyperlipidemia Hyperlipidemia, unspecified (01/21/17) Insomnia Insomnia, unspecified Neck pain Obesity Orthostatic hypotension Orthostatic hypotension (01/21/17) other cv history (08/02/89) Parkinsons disease Parkinsons disease (01/21/17) Pedal edema Polypharmacy (06/17/17) Screen for colon cancer Stage 3 chronic kidney disease (06/17/17) Weight loss (01/21/17) Surgical History (Updated 05/21/20 @ 11:56 by Bharath Yancey DO) H/O angioplasty Renal cyst, left Family History Other Atherosclerosis Dementia Hypertension Hypothyroidism Liver cancer Social History (Updated 09/16/20 @ 12:44 by Bharath Yancey DO) Does the Patient have a Healthcare Proxy: Yes ([place]) Does Patient have a DNR?: Yes Does Patient have a Living Will?: Yes Does the Patient have a MOLST?: No Advance Directives on File or in chart?: No adopted: No caregiver/support person: No foster care: No household members: none housing: house marital status: / lives independently: Yes number of children: 3 number of grandchildren: 6 highest education level completed: high school graduate service: Yes senior care: No current occupational status: retired pets and animals: Yes pets and animals: cat(s) do you think of yourself as: straight/heterosexual current gender identity: male Review of Systems Const Denies body aches, Denies chills, Denies fatigue, Denies fever(s) and Denies headache(s) Eyes Denies blurry vision and Denies change in vision ENT Denies dental pain, Denies otalgia, Denies facial pain, Denies headache(s) and Denies neck pain Card Denies chest pain and Denies dyspnea Resp Denies dyspnea and Denies wheezing GI Denies abdominal pain Denies genital pain, Denies flank pain and Denies testicular pain Musc Denies back pain, Denies arthralgias and Denies neck pain Skin/Breast Denies breast pain and Denies skin pain Neuro Denies headache(s) and Denies radicular pain Psych Denies anxiety and Denies depression Endo Denies fatigue Kalen/Lymph Denies easy bleeding and Denies easy bruising Aller/Immun Denies urticaria and Denies wheezing Exam Const General: cooperative, healthy appearing, no acute distress, well developed and well groomed Nutritional Appearance: well nourished and overweight Orientation: alert, awake and oriented x3 HENMT Head: normal to inspection, normocephalic and atraumatic Ears: hearing grossly impaired Face and sinus: normal facial exam Eyes General: appearance normal, both eyes and all related structures EOM: EOM intact bilaterally Neck Neck: supple Resp Effort Inspection: normal respiratory effort Auscultation: clear to auscultation bilaterally Percussion: percussion normal Cardio Jugular venous pressure: no JVD Palpation: normal PMI Rate: regular rate Rhythm: regular rhythm Heart Sounds: S1 normal and S2 normal Pulses: normal peripheral pulses GI Inspection: Yes obesity and Yes scar General: deferred Neuro General: patient alert and patient awake Gait: shuffling Extrem General: full ROM and no clubbing, cyanosis or edema Psych Appearance: grossly normal Mental Status: mental status grossly normal Speech and Movement: speech and movement normal Assessment Plan Assessment Plan (1) HTN (hypertension): Status: Chronic Code(s): I10 - Essential (primary) hypertension SNOMED Code(s): 60166831 Category: Medical Plan: d/c bp med bp diary for 4 weeks review bp diary in 4 weeks if bp is elevated, then will begin torsemide for CHF and htn daughter agrees to plan if condition worsens, then go to ER Plan: overweight - lifestyle modifications Medications: Discontinued triamterene-hydrochlorothiazid 37.5-25 mg Discontinued Reason: Clinically Indicated 1 cap PO QAM 90 caps 3RF Orders Instructions: DASH Eating Plan (GEN) Hypertension (GEN) Coding Level of Care Code 52215 Est Pt Intermediate Comp Exam Detailed Diagnoses HTN (hypertension) I10 <Electronically signed by Bharath Yancey DO> 11/10/20 6373 Name Value Range Interpretation Code Description Data Carin rce(s) Supporting Document(s) ID Date Data Source [id number] 10/22/2020 11:59:00 AM EDT [facility] ([facility]) Name Value Range Interpretation Code Description Data Carin rce(s) Supporting Document(s) Color of Urine Laboratory test result [facility] ([facility]) Appearance of Urine Laboratory test result [facility] ([facility]) Spec [place] 1.005 1.001-1.030 [facility] ([facility]) pH of Urine by Test strip 7 5-9 [facility] NT ([facility]) Nitrate [Presence] in Urine Laboratory test result [facility] ([facility]) Leukocytes Laboratory test result [facility] ([facility]) Inhouse Glucose Laboratory test result [facility] ([facility]) Protein [Presence] in Urine by Test strip Laboratory test result [facility] ([facility]) Ketones [Presence] in Urine by Test strip Laboratory test result [facility] ([facility]) Bilirubin.total [Presence] in Urine by Test strip Laboratory test res ult [facility] ([facility]) Urobilinogen Laboratory test result [facility] ([facility]) Blood type and Indirect antibody screen panel - Blood Laboratory test result [facility] ([facility]) ID Date Data Source [id number] 09/24/2020 06:33:00 PM EDT [place] [id number] [place] [id number] [phone] NAME SEX PT STATUS ACCOUNT NUMBER BHARATH BHARDWAJ REG REF [id number] ORDERING PHYSICIAN LOCATION MEDICAL RECORD NO. Marc Hicks MD [id number] ATTENDING PHYSICIAN DATE OF DATE OF EXAM/TIME Bharath Yancey DO 1940 09/24/20813 TYPE / EXAM US RENAL REASON FOR EXAM CKD STAGE 3A, HEART FAILURE, PARKINSONS DISEASE Clinical History/Indication for Exam: CKD STAGE 3A, HEART FAILURE, PARKINSONS DISEASE US RETROPERITONEAL COMPLETE RENAL INDICATION: CKD STAGE 3A, HEART FAILURE, PARKINSONS DISEASE TECHNIQUE: Real-time complete ultrasound of the retroperitoneum with image documentation. COMPARISON: No relevant prior studies available. FINDINGS: Right kidney: There is mild right hydronephrosis. There is bilateral renal cortical thinning. The right kidney measures 90 x 46 x 56 mm. No stones. Left kidney: The left kidney measures 97 x 47 x 46 mm. Bladder: Unremarkable as visualized. IMPRESSION: 1. There is mild right hydronephrosis. 2. There is bilateral renal cortical thinning. REPORT SIGNATURE ON FILE 09/24/2020 (18:33 Eastern Time ) Signed by: Sonya Underwood M.D. Reported By Sonya Underwood MD on 09/24/201832 Signed By Sonya Underwood MD on 09/24/201832 Date Time CC: Bharath Yancey DO; Sonya Underwood MD Techn: [facility] Trans Dt/Tm: Trans by: DT Prt Dt/Tm: : Total DLP = 0.00 mGy-cm : Total Radiation Dose = 0.0000 mSv Lifetime Dose: 0 mSv Name Value Range Interpretation Code Description Data Carin rce(s) Supporting Document(s) ID Date Data Source [id number] 09/18/2020 10:17:00 AM EDT [facility] ([facility]) Name Value Range Interpretation Code Description Data Carin rce(s) Supporting Document(s) Uric Acid 5.1 2.6-6 [facility] Magnesium Level 2.08 1.6-2.6 [facility]) ID Date Data Source [id number] 09/18/2020 10:17:00 AM EDT [facility] Name Value Range Interpretation Code Description Data Carin rce(s) Supporting Document(s) White Blood Count 4.9 5.0-10.0 [facility] Red Blood Count 3.61 4.70-6.10 [facility] Platelets 232 172-450 [facility] Hemoglobin 11.3 14.0-18.0 [facility]) Hematocrit 34.8 42.0-52.0 [facility] ([facility]) ID Date Data Source [id number] 09/18/2020 10:17:00 AM EDT [facility]) Name Value Range Interpretation Code Description Data Carin rce(s) Supporting Document(s) Glucose 103 70-106 [facility]) Blood Urea Nitrogen 25.2 7-18 [facility] ([facility]) Creatinine 1.3 0.55-1.3 [facility]) Glomerular filtration rate/1.73 sq M.pre dicted [Volume Rate/Area] in Serum or Plasma by Creatinine-based formula (MDRD) 53 [facility] ([facility]) Potassium 3.52 3.5-5.5 [facility] Sodium 135.8 135-145 [facility] Chloride 98.1 94-110 [facility]) Carbon Dioxide 33.1 21-32 [facility] ([facility]) Calcium 8.8 8.5-10.1 [facility]) Phosphorus 2.9 2.5-4.9 [facility] ([facility]) Albumin 4.0 3.5-4.7 [facility]) ID Date Data Source [id number] 09/16/2020 02:28:00 PM EDT [facility] [address] [place] [address] [phone] NAME SEX PT STATUS ACCOUNT NUMBER BHARATH BHARDWAJ REG REF [id number] ORDERING PHYSICIAN LOCATION MEDICAL RECORD NO. Bharath DO Bc RAD [id number] ATTENDING PHYSICIAN DATE OF DATE OF EXAM/TIME Bharath Yancey DO 1940 09/16/20 / 8 TYPE / EXAM Xray Nasal bones REASON FOR EXAM s/p fall , nasal trauma CLINICAL HISTORY: [facility] s/p fall , nasal trauma COMPARISON: None FINDINGS: Comminuted, acute- appearing fracture of the nasal bones. The remaining bones visualized appear normal. The sinuses are unremarkable. IMPRESSION: Comminuted, acute-appearing fracture of the nasal bones. Reported By Jack Osullivan MD on 09/16/201427 Signed By Jack Osullivan MD on 09/16/201428 Date Time CC: Bharath Yancey DO; Jack Osullivan MD Techn: [facility] Trans Dt/Tm: Trans by: DT Prt Dt/Tm: [id number]: Total DLP = 0.00 mGy-cm Fluoroscopy Time (in secs): Name Value Range Interpretation Code Description Data Carin rce(s) Supporting Document(s) ID Date Data Source [id number] 09/16/2020 11:51:00 AM EDT [facility] Patient Name: BHARATH BHARDWAJ : 1940 Sex: M Pt Unit #: [id number] Location:[facility] Provider: Visit Date/Time: 09/16/20 Primary Insurance: MEDICARE [employer] Secondary Insurance: [facility] Intake Vital Signs 09/16/20 12:00 Current Height 5 ft 3 in Current Weight 168 lb 2 oz Weight Measurement Method Standing Scale BMI 29.7 BP 120/72 Blood Pressure Location Lt brachial Position Sitting Respiration 16 Pulse 59 L Pulse Source Pulse Oximeter Pulse Oximetry (%) 99 Intake-Medicare Annual Visit Reasons: Medicare Annual Wellness subsequent Nurse Note: 80 year old malew here for Medicare Wellness exam. Did fall outside last , he tripped on some pavement piece and fell on his nose. Daughter would like his nose xrayed. Needs refill on levothyroxin.WEST score is 0.Refuses all vaccines at this time. Pt. will be moving in with his daughter next week. Mother Repairer Required: No Accompanied by: Daughter Is patient in pain?: No Allergies No Known Drug Allergies Allergy (Unverified 09/16/20 12:34) No Known Food Allergies Allergy (Unverified 09/16/20 12:34) Medications - Last Reconciled 09/16/20 by Bharath Yancey DO ammonium lactate 12% 1 applic topical BID PRN aspirin (Aspir-) 81 mg PO DAILY 90 days atorvastatin 20 mg PO HS carbidopa- levodopa 25-100 mg 1 tab PO .6 a day 90 days comp.stocking,knee,long,medium As directed levothyroxine 125 mcg PO QDAY [lionsmane 500 mg BID] mirabegron ER (Myrbetriq) 25 mg PO DAILY multivitamin (Daily Value) 1 ea PO DAILY triamterene-hydrochlorothiazid 37.5-25 mg 1 cap PO QAM Fall Risk History of falls: No Ambulatory Aid:: None Gait/Transferring:: Normal Medications:: Antihypertensives Requirement for HIV testing offer been met?: Not in age range [facility] Medical History (Updated 09/16/20 @ 12:33 by Bharath Yancey DO) Acquired hypothyroidism (01/21/17) Allergic rhinitis Anemia Anemia, unspecified (01/21/17) Cervical radiculopathy at C5 (02/24/17) CKD (chronic kidney disease) stage 3, GFR 30-59 ml/min Congestive heart failure Constipation (09/07/16) Coronary artery disease involving [place] heart without angina pectoris (01/21/17) Dementia Dementia without behavioral disturbance (01/21/17) Disorder of thyroid gland Frequency of micturition Hearing loss Hyperlipidemia Hyperlipidemia, unspecified (01/21/17) Insomnia, unspecified Neck pain Obesity Orthostatic hypotension Orthostatic hypotension (01/21/17) other cv history (08/02/89) Parkinsons disease Parkinsons disease (01/21/17) Polypharmacy (06/17/17) Screen for colon cancer Stage 3 chronic kidney disease (06/17/17) Weight loss (01/21/17) Surgical History (Updated 05/21/20 @ 11:56 by Bharath Yancey DO) H/O angioplasty Renal cyst, left Family History Other Atherosclerosis Dementia Hypertension Hypothyroidism Liver cancer Social History (Updated 09/16/20 @ 12:44 by Bharath Yancey DO) Does the Patient have a Healthcare Proxy: Yes ([place]) Does Patient have a DNR?: Yes Does Patient have a Living Will?: Yes Does the Patient have a MOLST?: No Advance Directives on File or in chart?: No adopted: No caregiver/support person: No foster care: No household members: none housing: house marital status: / lives independently: Yes number of children: 3 number of grandchildren: 6 highest education level completed: high school graduate service: Yes senior care: No current occupational status: retired pets and animals: Yes pets and animals: cat(s) do you think of yourself as: straight/heterosexual current gender identity: male Medicare Annual Wellness Type Of Examation Type of Exam: Subsequent Wellness Exam EKG EKG Performed: Yes Medication list Medications ammonium lactate 12% 1 applic topical BID PRN aspirin (Aspir-) 81 mg PO DAILY 90 days atorvastatin 20 mg PO HS carbidopa-levodopa 25-100 mg 1 tab PO .6 a day 90 days comp.stocking,knee,long,medium As directed levothyroxine 125 mcg PO QDAY [lionsmane 500 mg BID] mirabegron ER (Myrbetriq) 25 mg PO DAILY multivitamin (Daily Value) 1 ea PO DAILY triamterene-hydrochlorothiazid 37.5-25 mg 1 cap PO QAM Allergies Allergies No Known Drug Allergies Allergy (Unverified 09/16/20 12:34) No Known Food Allergies Allergy (Unverified 09/16/20 12:34) Current Diet Current diet: regular PHQ-2/9 Over the last 2 weeks, how often have you been bothered by any of the following problems? 1. Little interest or pleasure in doing things: several days 2. Feeling down, depressed, or hopeless: several days Total score: 2 If score is 2 greater, continue 3. Trouble falling or staying asleep, or sleeping too much: several days 4. Feeling tired or having little energy: several days 5. Poor appetite or overeating: not at all 6. Feeling bad about yourself - or that you are a failure or have let yourself and your family down:not at all 7. Trouble concentrating on things, such as reading the newspaper or watching television: several days 8. Moving or speaking so slowly that other people could have noticed? - Or the opposite - being so fidgety or restless that you have been moving around a lot more than usual: not at all 9. Thoughts that you would be better off or of hurting yourself in some way: not at all Total score: 5 Source: Developed by Drs. Philip Hooper, Latonia Paris, Chris Reynoso and colleagues, with an educational rob from [employer]. [employer] [place] [employer] - right eye: 20/100 [facility] - left eye: 20/70 [facility] - bilateral eyes: 20/50 Functional Assessment Bathing: Independent Dressing: Independent Toileting: Independent Transferring: Independent Continence: Independent Feeding: Independent Total Score: 6 Home Safety Home Safety: Reports Bathroom : Grab bars, Lighting: Adequate, [place]: No throw rugs and Stairs: Handrail available Hearing Hearing Left Ear: Normal Hearing Right Ear: Normal Hearing test method: finger rub IADL Assessment Functional abilities: Up Go test, pt steady (9.34 seconds), Up Go test, within 30 sec, Pt independent w/phone, Pt independent w/housework, Pt independent w/laundry and Pt independent w/finances; negative for Pt independent w/transportation, Pt independent w/shopping, Pt independent w/meal preparation or Pt independent w/medication Cognitive Evaluation Oriented to the date:: Yes Oriented to time:: Yes Oriented to place:: Yes Mood: grossly normal Affect: Normal Judgement: normal Needs caregiver for assistance: Yes Clock drawing: Yes Clock drawing with correct time: Yes 3 item recall: 1 Next Visit Return to Office:: f/u 3 months HPI Additional HPI HPI Details: agree with ice cream freezer helper intake Review of Systems Const Denies body aches, Denies chills, Denies fatigue, Denies fever(s) and D enies headache(s) Eyes Denies blurry vision and Denies change in vision ENT Denies headache(s), Reports nasal trauma and Denies neck pain Card Denies chest pain and Denies dyspnea Resp Denies dyspnea GI Denies abdominal pain Denies genital pain, Denies flank pain and Denies testicular pain Musc Denies back pain, Denies arthralgias and Denies neck pain Skin/Breast Reports other (abrasion of nose) Neuro Denies headache(s) and Denies radicular pain Psych Denies anxiety and Denies depression Endo Denies fatigue Exam Const General: cooperative, healthy appearing, no acute distress, well developed and well groomed Nutritional Appearance: well nourished and obese Orientation: alert, awake and oriented x3 HENMT Head: normal to inspection, normocephalic and atraumatic Ears: hearing grossly impaired General nose exam: external nose abnormal nasal abrasion and other (tenderness at bridge of nose) Face and sinus: normal facial exam Eyes General: appearance normal, both eyes and all related structures EOM: EOM intact bilaterally Neck Neck: supple Resp Effort Inspection: normal respiratory effort Auscultation: clear to auscultation bilaterally Percussion: percussion normal Cardio Jugular venous pressure: no JVD Palpation: normal PMI Rate: regular rate Rhythm: regular rhythm Heart Sounds: S1 normal and S2 normal Pulses: normal peripheral pulses GI Inspection: Yes obesity and Yes scar General: deferred Skin Trauma: abrasion (at nose region) Neuro General: patient alert and patient awake Gait: shuffling Extrem General: normal gait Quality Reporting Depression/Bipolar (159/160/161/169/177) Total score: 5 Assessment Plan Assessment Plan (1) Medicare annual wellness visit, subsequent: Code(s): Z00.00 - Encounter for general adult medical examination without abnormal findings Plan: Patient came for the annual wellness visit. Patient's medical and personal history was updated. I updated the list of harrison kim's current medical providers. Medication regimen was also reviewed. Vitalsigns were recorded. Patient was subjected to the mini-cog test. There is no evidence of cognitive impairment. Health maintenance activity record was updated. Patient was provided with personalized advice regarding lifestyle measures. Plan: completed annual wellness exam completed [facility] worksheet hypothyroidism - refill levothyroxine recent fall at home, s/p fall - nasal abrasion , xray of nasal bones as ordered depending on the results , he may need ENT referral they agree to plan Orders: Orders Xray Nasal bones Today S09.92XA - Unspecified injury of nose, initial encounter Medications: Refilled levothyroxine 125 mcg PO QDAY 90 tabs 3RF Orders Follow Up: 1 (test results) Coding Level of Care Code Established Pt Medicare AWV subsequent Patient Type Established Exam Detailed Diagnoses Medicare annual wellness visit, subsequent Z00.00 C omment please include 96659 for nasal trauma <Electronically signed by Bharath LYNN 09/16/20 1753 Name Value Range Interpretation Code Description Data Carin rce(s) Supporting Document(s) ID Date Data Source [id number] 05/21/2020 11:24:00 AM [facility] Patient Name: Bharath Bhardwaj : 1940 Sex: M Pt Unit #: [id number] Location:[facility] Provider: Visit Date/Time: 05/21/20 Primary Insurance: MEDICARE [employer] Secondary Insurance: [facility] [facility] Intake Vital Signs 05/21/20 11:25 Current Height 5 ft 3 in Current Weight 176 lb 4 oz Weight Measurement Method Standing Scale BMI 31.2 BP 110/64 Blood Pressure Location Lt brachial Position Sitting Respiration 16 Pulse 57 L Pulse Source Pulse Oximeter Pulse Oximetry (%) 93 L Intake Visit Reasons: Hypertension Nurse Note: 80 year old male here for recheck today. Daughter with. Fluid is less in his legs today.Waiting to hear from forklift technician yet. Mother Repairer Required: No Accompanied by: Daughter Is patient in pain?: No Allergies No Known Drug Allergies Allergy (Unverified 05/21/20 11:48) Medications - Last Reconciled 05/21/20 by Bharath Yancey DO ammonium lactate 12% 1 applic topical BID PRN aspirin (Aspir-) 81 mg PO DAILY 90 days atorvastatin 20 mg PO HS carbidopa-levodopa 25-100 mg 1 tab PO .6 a day 90 days comp.stocking,knee,long,medium As directed levothyroxine 125 mcg PO QDAY [lionsmane 500 mg BID] mirabegron ER (Myrbetriq) 25 mg PO DAILY multivitamin (Daily Value) 1 ea PO DAILY triamterene-hydrochlorothiazid 37.5-25 mg 1 cap PO QAM HIV Testing Offer - ages 13-64 Requirement for HIV testing offer been met?: Not in age range Do you need a note to return Do you need a note to return to daycare/school/sports/work: No Coronavirus Screening Screening Are you currently positive or on isolation for COVID ?: No Do you have any NEW signs of one or more of the following?: no symptoms PFSH Medical History (Updated 05/21/20 @ 11:56 by Bharath Yancey DO) Allergic rhinitis Anemia CKD (chronic kidney disease) stage 3, GFR 30-59 ml/min Congestive heart failure Constipation (09/07/16) Dementia Disorder of thyroid gland Frequency of micturition Hearing loss Hyperlipidemia Neck pain Obesity Orthostatic hypotension other cv history (08/02/89) Parkinsons disease Screen for colon cancer Surgical History (Updated 05/21/20 @ 11:56 by Bharath Yancey DO) H/O angioplasty Renal cyst, left Family History Other Atherosclerosis Dementia Hypertension Hypothyroidism Liver cancer Social History Does the Patient have a Healthcare Proxy: Yes ([place]) Does Patient have a DNR?: Yes Does Patient have a Living Will?: Yes HPI Additional HPI HPI Details: agree with ice cream freezer helper intake mary , daughter in law Hypertension (Cardio) Type of visit: follow-up Onset: >1 year Current neurological symptoms: Denies diplopia, headache(s), numbness or loss of vision Orthostatic: No Current cardiovascular symptom: denies chest pain, dyspnea, dyspnea on exertion, palpita tions, fatigue or dizziness Current endocrine symptoms: Denies diaphoretic episodes, myalgias, constipation, cold intolerance, weight gain or skin change Current renal disease symptoms: reports edema; denies fatigue, nausea, vomiting, weight loss, hematuria, foamy urine or change in urine output Most Recent Cardiac Tests: No Data to Display Monitoring BP monitoring: health professional BP comorbidities: chronic kidney disease, CHF, ASCVD and less than 140/90 BP control: satisfactory BP target: less than 140/90 Diet type: low sodium Medication compliance: good Review of Systems Const Denies fatigue, Denies headache(s), Denies weight gain and Denies weight loss Eyes Denies diplopia and Denies loss of vision ENT Denies dizziness and Denies headache(s) Card Denies chest pain, Reports edema, Denies palpitations, Denies dyspnea and Denies dyspnea on exertion Resp Denies dyspnea and Denies dyspnea on exertion GI Denies constipation, Denies nausea and Denies vomiting Denies hematuria Musc Denies myalgias and Denies numbness Neuro Denies dizziness, Denies headache(s), Denies loss of vision and Denies numbness Endo Denies cold intolerance, Denies fatigue and Denies palpitations Exam Const General: cooperative, healthy appearing, no acute distress, well developed and well groomed Nutritional Appearance: well nourished and obese Orientation: gonzález rt, awake and oriented x3 [facility] Head: normal to inspection, normocephalic and atraumatic Ears: hearing grossly impaired Face and sinus: normal facial exam Eyes General: appearance normal, both eyes and all related structures EOM: EOM intact bilaterally Neck Neck: supple Resp Effort Inspection: normal respiratory effort Auscultation: clear to auscultation bilaterally Percussion: percussion normal Cardio Jugular venous pressure: no JVD Palpation: normal PMI Rate: regular rate Rhythm: regular rhythm Heart Sounds: S1 normal and S2 normal Pulses: normal peripheral pulses GI Inspection: Yes obesity and Yes scar General: deferred Neuro General: patient alert and patient awake Gait: shuffling Extrem General: pedal edema (has improved) bilaterally Assessment Plan Assessment Plan (1) HTN (hypertension): Status: Chronic Code(s): I10 - Essential (primary) hypertension SNOMED Code(s): 57633791 Category: Medical Plan - Bharath Yancey, DO: good control continue current medical treatment f/u 4 months for annual medicare wellness exam Mary agrees with plan Coding Level of Care Code 88035 Est Pt Intermediate Comp Exam Detailed Diagnoses HTN (hypertension) I10 <Electronically signed by Bharath Yancey DO> 05/21/20 1336 Name Value Range Interpretation Code Description Data Carin rce(s) Supporting Document(s) ID Date Data Source [id number] 05/21/2020 10:48:00 AM EST [facility] Name Value Range Interpretation Code Description Data Carin rce(s) Supporting Document(s) Leukocytes [#/volume] in Blood by Automated count 4.8 10*3/uL 4.45-10 .71 N [facility] Erythrocytes [#/volume] in Blood by Automated count 3.72 10*6/uL 4.3-6.1 Below low normal [facility] Hemoglobin [Moles/volume] in Blood 11.7 g/dL 13-18 Below low no rmal [facility] Hematocrit [Volume Fraction] of Blood by Automated count 35.7 % 42-52 Below low normal [facility] Erythrocyte mean corpuscular volume [Ent itic volume] in Cord blood by Automated count 96.0 fL 80-96 N [facility] ital Erythrocyte mean corpuscular hemoglobin [Entitic mass] by Automated count 31.5 pg 27-31 Above high normal [facility] spital Erythrocyte mean corpuscular hemoglobin concentration [Mass/volume] in Cord blood 32.8 g/dL 33-37 Below low normal [facility] Erythrocyte distribution width [Entitic volume] by Automated count 14 % 11-15 N [facility] Platelets [#/volume] in Blood by Automated count 156 10*3/uL 130-472 N [facility] Platelet mean volume [Entitic volume] in Blood 8.1 fL 9.1-13. 1 Below low normal [facility] Neutrophils/100 leukocytes in Blood by Automated count 55.4 % 41- 77 N [facility] Neutrophils [#/volume] in Blood by Automated count 2.6 U 1.7-7.6 N [facility] Lymphocytes/100 leukocytes in Blood by Automated count 25.6 % 14- 46 N [facility] Lymphocytes [#/volume] in Blood by Automated count 1.2 U 0.6-4.6 N [facility] Monocytes/100 leukocytes in Blood by Automated count 15.9 % 4-12 Above high normal [facility] Monocytes [#/volume] in Blood by Automated count 0.8 U 0.2-1.2 N [facility] Eosinophils/100 leukocytes in Blood by Automated count 2.3 % 0-7 N [facility] Eosinophils [#/volume] in Blood by Automated count 0.1 U 0.0-0.5 N [facility] Basophils/100 leukocytes in Blood by Automated count 0.4 % 0.4-1 .3 N [facility] Basophils [#/volume] in Blood by Automated count 0.0 U 0.0-0.2 N [facility] NUCLEATED RED BLOOD CELL 0 % [facility] NUCLEATED RED BLOOD CELL# 0 U [facility] Immature granulocytes [Presence] in Blood by Automated count 0-2 N [facility] Immature granulocytes [#/volume] in Blood by Automated count 0.0 U 0-0.1 N [facility] Manual Differential panel - Blood NO [facility] ID Date Data Source [id number] 05/21/2020 11:39:00 AM EST [facility] Name Value Range Interpretation Code Description Data Carin rce(s) Supporting Document(s) Urea nitrogen [Mass/volume] in Serum or Plasma 26 mg/dL 9-23 Above high normal [facility] Sodium [Moles/volume] in Serum or Plasma 140 mmol/L 132-146 N [facility] Potassium [Moles/volume] in Serum or Plasma 3.7 mmol/L 3.5-5.5 N [facility] Chloride [Moles/volume] in Serum or Plasma 104 mmol/L 99-109 N [facility] Carbon dioxide, total [Moles/volume] in Serum or Plasma 32 mmol/ L 20-31 Above high normal [facility] Anion gap in Serum or Plasma 8 mmol/L 8-16 N [facility] Glucose [Mass/volume] in Serum or Plasma 87 mg/dL 74-106 N [facility] Creatinine 1.3 mg/dL 0.5-1.1 Above high normal [facility] Glomerular filtration rate/1.73 sq M.pre dicted [Volume Rate/Area] in Serum or Plasma 53 ml/min ABOVE 60 [facility] ital Alanine aminotransferase [Enzymatic acti vity/volume] in Serum or Plasma by With P-5'-P 17 U/L 10-49 N [facility] ital Aspartate aminotransferase [Enzymatic ac tivity/volume] in Serum or Plasma by With P-5'-P 26 U/L 0-33 N [facility] pital Alkaline phosphatase [Enzymatic activity/volume] in Serum or Plasma 81 U/L 45-129 N [facility] Calcium [Mass/volume] in Serum or Plasma 8.9 mg/dL 8.5-10.1 N [facility] Bilirubin.total [Mass/volume] in Serum or Plasma 0.7 mg/dL 0.3-1.2 N [facility] Albumin [Mass/volume] in Serum or Plasma by Bromocresol purple (BCP) dye binding method 4.0 g/dL 3.2-4.8 N [facility] ital Protein [Mass/volume] in Serum or Plasma 7.6 g/dL 5.7-8.2 [facility] ID Date Data Source [id number] 05/21/2020 11:39:00 AM [facility] Name Value Range Interpretation Code Description Data Carin rce(s) Supporting Document(s) Triglycerides 62 mg/dL 0-[address] [facility] Cholesterol 97 mg/dL 120-200 Below low normal [facility] HDL Cholesterol 44 mg/dL [facility] HDL Less than 40 mg/dL: Major risk for CHDHDL Greater than 59 mg/dL: Low risk for CHD LDL Cholesterol, Calc 41 mg/dL 0-100 N [facility] ID Date Data Source 05/21/2020 11:39:00 AM [facility] Name Value Range Interpretation Code Description Data Carin rce(s) Supporting Document(s) Thyrotropin [Units/volume] in Serum or Plasma by Detec tion limit <= 0.005 mIU/L 3.14 u[iU]/mL 0.35-5.50 [facility] Source [id number] 05/21/2020 11:09:00 AM [facility] Name Value Range Interpretation Code Description Data Carin rce(s) Supporting Document(s) Phosphate [Mass/volume] in Serum or Plasma 2.8 mg/dL 2.4-5.1 [facility] ID Date Data Source [id number] 05/21/2020 11:09:00 AM [facility] Name Value Range Interpretation Code Description Data Carin rce(s) Supporting Document(s) Natriuretic peptide.B prohormone N-Terminal [Mass/volu me] in Serum or Plasma 115.00 pg/mL 0.00-450 [facility] l ID Date Data Source [id number] 05/21/2020 10:40:00 AM EST [facility] Name Value Range Interpretation Code Description Data Carin rce(s) Supporting Document(s) Phosphate [Moles/volume] in Serum or Plasma 2.8 mg/dL 2.4-5.1 [facility] ([facility]) ID Date Data Source [id number] 05/21/2020 10:40:00 AM EST [facility] ([facility]) Name Value Range Interpretation Code Description Data Carin rce(s) Supporting Document(s) TSH SerPl DL<=0.005 mIU/L-aCnc 3.14 u[iU]/mL 0.35-5.50 [facility] ([facility]) N18.30,I50.9,R60.0,I50.32 ID Date Data Source [id number] 05/21/2020 10:40:00 AM EST [facility] ([facility]) Name Value Range Interpretation Code Description Data Carin rce(s) Supporting Document(s) Triglyceride [Mass/volume] in Serum or Plasma 62 mg/dL 0-150 [facility] ([facility]) N18.30,I50.9,R60.0,I50.32 Cholesterol in HDL [Mass/volume] in Serum or Plasma 44 mg/dL [facility] ([facility]) N18.30,I50.9,R60.0,I50.32 Cholesterol [Mass/volume] in Serum or Plasma 97 mg/dL 120-200 [facility] ([facility]) N18.30,I50.9,R60.0,I50.32 Cholesterol in LDL [Mass/volume] in Serum or Plasma by calcu lation 41 mg/dL 0-100 [facility] ([facility]) N18.30,I50.9,R60.0,I50.32 ID Date Data Source [id number] 05/21/2020 10:40:00 AM EST [facility] ([facility]) Name Value Range Interpretation Code Description Data Carin rce(s) Supporting Document(s) Urea nitrogen [Mass/volume] in Serum or Plasma 26 mg/dL 9-23 [facility] ([facility]) N18.30,I50.9,R60.0,I50.32 Sodium [Moles/volume] in Serum or Plasma 140 mmol/L 132-146 [facility] ([facility]) N18.30,I50.9,R60.0,I50.32 Potassium [Moles/volume] in Serum or Plasma 3.7 mmol/L 3.5-5.5 [facility] ([facility]) N18.30,I50.9,R60.0,I50.32 Chloride [Moles/volume] in Serum or Plasma 104 mmol/L 99-109 [facility] ([facility]) N18.30,I50.9,R60.0,I50.32 Carbon dioxide, total [Moles/volume] in Serum or Plasma 32 mmol/L 20 -31 [facility] ([facility]) N18.30,I50.9,R60.0,I50.32 Anion gap in Serum or Plasma 8 mmol/L 8-16 [facility] ([facility]) N18.30,I50.9,R60.0,I50.32 Glucose [Mass/volume] in Serum or Plasma 87 mg/dL 74-106 [facility] ([facility]) N18.30,I50.9,R60.0,I50.32 Glomerular filtration rate/1.73 sq M.pre dicted [Volume Rate/Area] in Serum or Plasma 53 [facility] N18.30,I50.9,R60.0,I50.32 Creatinine 1.3 mg/dL 0.5-1.1 [facility] ([facility]) N18.30,I50.9,R60.0,I50.32 Aspartate aminotransferase [Enzymatic ac tivity/volume] in Serum or Plasma by With P-5'-P 26 U/L 0-33 [facility] N18.30,I50.9,R60.0,I50.32 Alanine aminotransferase [Enzymatic acti vity/volume] in Serum or Plasma by With P-5'-P 17 U/L 10-49 [facility]) N18.30,I50.9,R60.0,I50.32 Alkaline phosphatase [Enzymatic activity/volume] in Serum or Plasma 81 U/L 45-129 [facility] ([facility]) N18.30,I50.9,R60.0,I50.32 Calcium [Mass/volume] in Serum or Plasma 8.9 mg/dL 8.5-10.1 [facility] ([facility]) N18.30,I50.9,R60.0,I50.32 Bilirubin.total [Mass/volume] in Serum or Plasma 0.7 mg/dL 0.3-1.2 [facility] ([facility]) N18.30,I50.9,R60.0,I50.32 Albumin [Mass/volume] in Serum or Plasma by Bromocresol purple (BCP) dye binding method 4.0 g/dL 3.2-4.8 [facility] N18.30,I50.9,R60.0,I50.32 Protein [Mass/volume] in Serum or Plasma 7.6 g/dL 5.7-8.2 [facility] ([facility]) N18.30,I50.9,R60.0,I50.32 ID Date Data Source [id number] 05/21/2020 10:40:00 AM EST [facility] ([facility]) Name Value Range Interpretation Code Description Data Carin rce(s) Supporting Document(s) Leukocytes [#/volume] in Blood by Automated count 4.8 10*3/uL 4.45-10 .71 [facility] ([facility]) N18.30,I50.9,R60.0,I50.32 Erythrocytes [#/volume] in Blood by Automated count 3.72 10*6/uL 4.3- 6.1 [facility] ([facility]) N18.30,I50.9,R60.0,I50.32 Hemoglobin [Moles/volume] in Blood 11.7 g/dL 13-18 [facility] ([facility]) N18.30,I50.9,R60.0,I50.32 Hematocrit [Volume Fraction] of Blood by Automated count 35.7 % 4 2-52 [facility] ([facility]) N18.30,I50.9,R60.0,I50.32 Erythrocyte mean corpuscular volume [Ent itic volume] in Cord blood by Automated count 96.0 fL 80-96 [facility]) N18.30,I50.9,R60.0,I50.32 Erythrocyte mean corpuscular hemoglobin concentration [Mass/volume] in Cord blood 32.8 g/dL 33-37 [facility]) N18.30,I50.9,R60.0,I50.32 Erythrocyte mean corpuscular hemoglobin [Entitic mass] by Automated count 31.5 pg 27-31 [facility] ([employer] [facility]) N18.30,I50.9,R60.0,I50.32 Platelets [#/volume] in Blood by Automated count 156 10*3/uL 130-472 [facility] ([facility]) N18.30,I50.9,R60.0,I50.32 Erythrocyte distribution width [Entitic volume] by Automated count 14 % 11-15 [facility] ([facility]) N18.30,I50.9,R60.0,I50.32 Platelet mean volume [Entitic volume] in Blood 8.1 fL 9.1-13.1 [facility] ([facility]) N18.30,I50.9,R60.0,I50.32 Neutrophils/100 leukocytes in Blood by Automated count 55.4 % 41- 77 [facility] ([facility]) N18.30,I50.9,R60.0,I50.32 Neutrophils [#/volume] in Blood by Automated count 2.6 U 1.7-7.6 [facility] ([facility]) N18.30,I50.9,R60.0,I50.32 Lymphocytes/100 leukocytes in Blood by Automated count 25.6 % 14- 46 [facility] ([facility]) N18.30,I50.9,R60.0,I50.32 Lymphocytes [#/volume] in Blood by Automated count 1.2 U 0.6-4.6 [facility] ([facility]) N18.30,I50.9,R60.0,I50.32 Monocytes [#/volume] in Blood by Automated count 0.8 U 0.2-1.2 [facility] ([facility]) N18.30,I50.9,R60.0,I50.32 Monocytes/100 leukocytes in Blood by Automated count 15.9 % 4-12 [facility] ([facility]) N18.30,I50.9,R60.0,I50.32 Eosinophils/100 leukocytes in Blood by Automated count 2.3 % 0-7 [facility] ([facility]) N18.30,I50.9,R60.0,I50.32 Eosinophils [#/volume] in Blood by Automated count 0.1 U 0.0-0.5 [facility] ([facility]) N18.30,I50.9,R60.0,I50.32 Basophils [#/volume] in Blood by Automated count 0.0 U 0.0-0.2 [facility] ([facility]) N18.30,I50.9,R60.0,I50.32 Basophils/100 leukocytes in Blood by Automated count 0.4 % 0.4-1 .3 [facility] ([facility]) N18.30,I50.9,R60.0,I50.32 Nucleated Red Blood Cell 0 % [facility] ([facility]) N18.30,I50.9,R60.0,I50.32 Laboratory test finding (navigational concept) 0 U [facility] ([facility] [facility]) N18.30,I50.9,R60.0,I50.32 Immature granulocytes [Presence] in Blood by Automated count 0.4 0-2 MEDENT ([facility]) N18.30,I50.9,R60.0,I50.32 Immature granulocytes [#/volume] in Blood by Automated count 0.0 U 0-0.1 MEDENT ([facility]) N18.30,I50.9,R60.0,I50.32 Manual Differential panel - Blood Laboratory test result MEDENT ([facility]) N18.30,I50.9,R60.0,I50.32 ID Date Data Source [id number] 04/16/2020 02:44:00 PM [facility] [address] [place] [address] [phone] NAME SEX PT STATUS ACCOUNT NUMBER Bharath Bhardwaj REG REF [id number] ORDERING PHYSICIAN LOCATION MEDICAL RECORD NO. Bharath Yancey DO [id number] ATTENDING PHYSICIAN DATE OF DATE OF EXAM/TIME Bharath Yancey DO 1940 04/16/201441 TYPE / EXAM US VENOUS LEG RIGHT REASON FOR EXAM right calf edema CLINICAL HISTORY: 80 years of age, Male, right calf edema. TECHNIQUE: Multiple Grayscale sonographic images of the right lower extremity deep venous system were obtained utilizing a 9 MHz linear transducer, with and without compression. Color Doppler and Spectral Doppler waveform analysis were utilized for the evaluation for venous thrombosis. COMPARISON US: None available. FINDINGS: The right common femoral, greater saphenous, superficial femoral and popliteal veins demonstrate normal color flow and compressibility. Normal waveform augmentation was demonstrated with calf compression. Mild to moderate subcutaneous edema is present. IMPRESSION: No evidence of right lower extremity deep venous thrombosis. Reported By Zoltan Colbert DO on 04/16/20 1444 Signed By Zoltan Colbert DO on 04/16/20 1445 Date Time CC: Bharath Yancey DO; Zoltan Colbert DO Techn: TABSA Trans Dt/Tm: Trans by: DT Prt Dt/Tm: 17: Total DLP = 0.00 mGy-cm : Total Radiation Dose = 0.0000 mSv Lifetime Dose: 0 mSv Name Value Range Interpretation Code Description Data Carin rce(s) Supporting Document(s) ID Date Data Source [id number] 04/16/2020 01:12:00 PM [facility] Patient Name: Bharath Bhardwaj : 1940 Sex: M Pt Unit #: [id number] Location:[facility] Provider: Visit Date/Time: 04/16/20 Primary Insurance: MEDICARE [employer] Secondary Insurance: [facility] Intake Vital Signs 04/16/20 13:12 Current Height 5 ft 3 in Current Weight 181 lb 8 oz Weight Measurement Method Standing Scale BMI 32.1 BP 150/82 Blood Pressure Location Lt brachial Position Sitting Respiration 16 Pulse 72 Pulse Source Pulse Oximeter Pulse Oximetry (%) 94 L Intake Visit Reasons: Edema Nurse Note: 80 year old male here for edema check. Daughter states he has more edema in his legs then he has had in the past. He does wear compression stockings everyday. Has not seen forklift technician or feed in worker yet. Does have urology 04-13-2020. Does see neurologist 07-10-2020 for his parkinson. Mother Repairer Required: No Accompanied by: Daughter Is patient in pain?: No Allergies No Known Drug Allergies Allergy (Unverified 04/16/20 13:44) Medications - Last Reconciled 04/16/20 by Bharath Yancey DO aspirin (Aspir- ) 81 mg PO DAILY 90 days atorvastatin 20 mg PO HS carbidopa-levodopa 25-100 mg 1 tab PO .6 a day 90 days comp.stocking,knee,long,medium As directed levothyroxine 125 mcg PO QDAY [lionsmane 500 mg BID] mirabegron ER (Myrbetriq) 25 mg PO DAILY multivitamin (Daily Value) 1 ea PO DAILY triamterene-hydrochlorothiazid 37.5-25 mg (Dyazide) 1 cap PO QAM Fall Risk History of falls: No Ambulatory Aid:: None Gait/Transferring:: Normal Medications:: Antihypertensives HIV Testing Offer - ages 13-64 Requirement for HIV testing offer been met?: Not in age range Do you need a note to return Do you need a note to return to daycare/school/sports/work: No Coronavirus Screening Screening Have you traveled outside of [facility] or [facility] in the last 14 days.: No Has patient experienced coronavirus symptoms: No [facility] Medical History (Updated 04/16/20 @ 15:11 by Bharath Yancey DO) Allergic rhinitis Anemia CKD (chronic kidney disease) stage 3, GFR 30-59 ml/min Congestive heart failure Constipation (09/07/16) Dementia Disorder of thyroid gland Frequency of micturition Hearing loss Hyperlipidemia Neck pain Obesity Orthostatic hypotension other cv history (08/02/89) Parkinsons disease Screen for colon cancer Family History Other Atherosclerosis Dementia Hypertension Hypothyroidism Liver cancer Social History (R randywed 09/25/19 @ 11:13 by Bharath Yancey DO) Does the Patient have a Healthcare Proxy: Yes (SON,JAZMINE AND MARY) Does Patient have a DNR?: Yes Does Patient have a Living Will?: Yes HPI Additional HPI HPI Details: agree with ice cream freezer helper intake (daughter is in the exam room) already saw vascular surgeon he had 2d echo done in 2019 he has not been elevating his legs at home he has been eating salty food at home he will soon move in with his daughter , he will not live alone denies calf pain denies shortness of breath denies chest pain Edema Location: bilateral feet, bilateral ankles and bilateral legs Severity: moderate Onset: 1-2 weeks Duration of episodes: >60 mins Frequency: constantly Exacerbated by: salty foods Improved by: compression stockings and elevation Associated symptoms: Reports edema, lightheadedness and urinary frequency; Denies chest pain with activity, chest pain at rest, claudication, leg ulcers, LE erythema, palpitations, rapid heart rate,confusion, forgetfulness, headache(s), syncope, dizziness, pre-syncope, myalgias, fatigue, erectile dysfunction, nocturia, dysuria, fever(s), productive cough, non- productive cough, paroxysmal nocturnal dyspnea, dyspnea, dyspnea on exertion, orthopnea, wheezing, slurred speech, melena, hematochezia, weakness, sleeping in chair, nausea, early satiety or poor appetite Diet type: low sodium Glasses of liquid per day: 3 Most Recent Cardiac Tests: No Data to Display Review of Systems Const Denies fatigue, Denies fever(s), Denies headache(s), Denies poor appetite and Denies weakness ENT Denies dizziness and Denies headache(s) Card Denies chest pain at rest, Denies chest pain with activity, Denies syncope, Denies rapid heart rate,Reports edema, Denies claudication, Denies leg ulcers, Reports lightheadedness, Denies palpitations,Denies dyspnea, Denies dyspnea on exertion, Denies orthopnea and Denies paroxysmal nocturnal dyspnea Resp Denies dyspnea, Denies dyspnea on e xertion and Denies wheezing GI Denies melena, Denies hematochezia, Denies early satiety and Denies nausea Denies erectile dysfunction, Denies dysuria, Denies nocturia and Reports urinary frequency Musc Denies myalgias Neuro Denies confusion, Denies dizziness, Denies syncope, Denies headache(s) and Denies weakness Psych Denies confusion Endo Denies fatigue and Denies palpitations Aller/Immun Denies wheezing Exam Const General: cooperative, healthy appearing, no acute distress, well developed and well groomed Nutritional Appearance: well nourished and obese Orientation: alert, awake and oriented x3 [facility] Head: normal to inspection, normocephalic and atraumatic Ears: hearing grossly normal bilaterally Eyes General: appearance normal, both eyes and all related structures Visual Robles: normal visual robles by confrontation EOM: EOM intact bilaterally Neck Neck: normal visual inspection, full ROM, no lymphadenopathy, supple and no JVD present Neck mass: No Thyroid: thyroid normal Carotids: normal carotid upstroke Chest Chest: normal inspection of the chest Resp Effort Inspection: normal respiratory effort Auscultation: clear to auscultation bilaterally Percussion: percussion normal Cardio Jugular venous pressure: no JVD Palpation: normal PMI Rate: regular rate Rhythm: regular rhythm Heart Sounds: S1 normal and S2 normal Bruits: no carotid bruits Pulses: normal peripheral pulses GI Inspection: Yes obesity Palpation: soft Auscultation: normal bowel sounds General: deferred Skin Lesions: no lesions Rashes: no rashes Trauma: no lacerations or abrasions Wounds: no wounds Other: dry skin - both feet Neuro General: patient alert and patient awake Cognition: normal cognition Speech: speech normal Gait: normal gait Motor: muscle tone normal throughout and strength 5/5 throughout Extrem General: normal gait and edema (feet , ankles, and legs) Laterality: bilateral Other: right calf appears more swollen than the left calf Assessment Plan Assessment Plan (1) Edema of both legs: Status: Chronic Code(s): R60.0 - Localized edema SNOMED Code(s): 217326359 Category: Medical Plan - Bharath Yancey DO: venous doppler f/u feed in worker for assess LV function with 2D echo f/u forklift technician elevate legs as much as possible compression stockings if condition worsens, then go to ER daughter agrees to plan (2) Dry skin: Status: Chronic Code(s): L85.3 - Xerosis cutis SNOMED Code(s): 73502386 Category: Medical Plan - Bharath Yancey DO: lac hydrin as ordered (3) HTN (hypertension): Status: Chronic Code(s): I10 - Essential (primary) hypertension SNOMED Code(s): 94045063 Category: Medical Plan - Bharath Yancey DO: needs better control continue current medical treatment bp diary f/u 4 weeks (4) Obesity: Status: Chronic Code(s): E66.9 - Obesity, unspecified SNOMED Code(s): 070029084 C ategory: Medical Plan - Bharath Yancey DO: lifestyle modifications Orders Other Medications: New: ammonium lactate 12% 1 applic topical BID PRN 400 grams 12RF dry skin Other Orders: Orders: US VENOUS LEG RIGHT Today R60.9 Follow Up: 4 (htn, legs edema) Coding Level of Care Code 83812 Est Pt Extended Comp Exam Detailed Diagnoses Edema of both legs R60.0 Dry skin L85.3 HTN (hypertension) I10 Obesity E66.9 <Electronically signed by hBarath Yancey DO> 04/16/202024 Name Value Range Interpretation Code Description Data Carin rce(s) Supporting Document(s) ID Date Data Source [id number] 02/08/2020 03:21:00 PM [facility] Patient Name: Bharath Bhardwaj : 1940 Sex: M Pt Unit #: [id number] Location[facility] Provider: Visit Date/Time: 02/08/20 Primary Insurance: [employer]ARE [employer] Secondary Insurance: [facility] Intake Vital Signs 02/08/20 15:21 Current Height 5 ft 3 in Current Weight 176 lb 6 oz Weight Measurement Method Standing Scale BMI 31.2 BP 130/80 Blood Pressure Location Rt brachial Position Sitting Respiration 18 Pulse Source Pulse Oximeter Intake Visit Reasons: Leg Pain/injury Nurse Note: 79 year old male here for very edematous feet and legs up to knees..Tuesday they were worse than today per daughter. They are weepy also.Daughter states he had normal black socks on Tuesday and daughter put on compression stockings that day. Mother Repairer Required: No Accompanied by: Daughter Is patient in pain?: No Allergies No Known Drug Allergies Allergy (Unverified 09/25/19 11:11) HIV Testing Offer - ages 13-64 Requirement for HIV testing offer been met?: Not in age range Do you need a note to return Do you need a note to return to daycare/school/sports/work: No Coronavirus Screening Screening Have you traveled outside of [facility] or [facility] in the last 14 days.: No Has patient experienced coronavirus symptoms: No [facility] Medical History (Updated 02/08/20 @ 17:06 by Bharath Yancey DO) Allergic rhinitis Anemia CKD (chronic kidney disease) stage 3, GFR 30-59 ml/min Congestive heart failure Constipation (09/07/16) Dementia Disorder of thyroid gland Frequency of micturition Hearing loss Hyperlipidemia Neck pain Orthostatic hypotension other cv history (08/02/89) Parkinsons disease Screen for colon cancer Family History Other Atherosclerosis Dementia Hypertension Hypothyroidism Liver cancer Social History Does the Patient have a Healthcare Proxy: Yes (SON,JAZMINE AND MARY) Does Patient have a DNR?: Yes Does Patient have a Living Will?: Yes HPI Additional HPI HPI Details: 79 y/o male with hld, chf, hypothyroidism, parksinsons disease, CAD , chronic pedal edema, anemia, dementia, insomnia is with daughter, health care proxy he has been eating salty foods recently and also not elevating his legs as directed by physician. he has not been wearing his compression stockings everyday as directed either more swollen now; there is usually improvement with elevation and compression stockings daughter denies other complaints Review of Systems Const All systems reviewed are unremarkable except as noted in HPI and below Eyes Reports system reviewed and no additional complaints, except as documented ENT Reports system reviewed and no additional complaints, except as documented Card Reports as per HPI Resp Reports system reviewed and no additional complaints, except as documented GI Reports system reviewed and no additional complaints, except as documented Reports system reviewed and no additional complaints, except as documented Musc Reports system reviewed and no additional complaints, except as documented Skin/Breast Reports as per HPI Neuro Reports system reviewed and no additional complaints, except as documented Psych Reports system reviewed and no additional complaints, except as documented Endo Reports system reviewed and no additional complaints, except as documented Kalen/Lymph Reports system reviewed and no additional complaints, except as documented Aller/Immun Reports system reviewed and no additional complaints, except as documented Exam Const General: cooperative, healthy appearing, comfortable and no acute distress Nutritional Appearance: obese Orientation: alert and awake HENID Head: normal to inspection, normocephalic and atraumatic Ears: hearing grossly normal bilaterally Eyes Eyelids: eyelids normal Conjunctivae: conjunctivae normal Sclera: sclerae normal EOM: EOM int act bilaterally Neck Neck: normal visual inspection, full ROM, no lymphadenopathy, supple and no JVD present Neck mass: No Thyroid: thyroid normal Carotids: normal carotid upstroke Resp Effort Inspection: normal respiratory effort Auscultation: clear to auscultation bilaterally Cardio Jugular venous pressure: no JVD Rate: regular rate Rhythm: regular rhythm GI Inspection: Yes obesity Palpation: soft Auscultation: normal bowel sounds General: deferred Skin Lesions: no lesions Rashes: no rashes Trauma: other (right lower extremity some mild weeping, nontender, no pus drainage) Wounds: no wounds and wounds noted Neuro General: patient alert and patient awake Cognition: normal cognition Speech: speech normal Gait: normal gait Extrem General: normal exam except as noted and edema (lower extremities) Laterality: bilateral Assessment Plan Assessment Plan (1) Pain of lower extremity: Code(s): M79.606 - Pain in leg, unspecified Plan - Bharath Yancey, DO: b/l edema of lower extremities elevate legs compression stocking knee high monitor salt intake daily , less than 2grams daily keep clean and dry, change dressings daily f/u 1 - 2 months if condition worsens, then go to ER (2) CKD (chronic kidney disease) stage 3, GFR 30-59 ml/min: Status: Acute Code(s): N18.30 - Chronic kidney disease, stage 3 unspecified SNOMED Code(s): 626450733 Category: Medical Plan - Bharath Yancey, DO: 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, then go to ER Orders: Referrals: Nephrology Referral (3) Congestive heart failure: Status: Acute Comment: reviewed utica surgeon consultation Code(s): I50.9 - Heart failure, unspecified SNOMED Code(s): 74360651 Category: Medical Plan - Bharath Yancey, DO: 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 condition 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, then go to ER Orders: Referrals: Cardiology Referral Orders Other Medications: New: comp.stocking,knee,long,medium As directed 12 ea 0RF R60.0 Follow Up: 2 (edema) <Electronically signed by Bharath Yancey DO> 02/08/20 1709 Name Value Range Interpretation Code Description Data Carin rce(s) Supporting Document(s) Procedure Social History Code Duration Value Status Description Data Source(s ) Smoking 11/10/2020 12:00:00 AM EDT Patient is a former smoker completed Patient is a former smoker [facility] ([facility]) Smoking 04/23/2020 12:00:00 AM EST Never Smoked Cigars complet ed Never Smoked Cigars [facility] ([facility]) Vital Signs ID Date Data Source UNK Name Value Range Interpretation Code Description Data Source(s) Body weight 155.00 [lb_av] 155.00 [lb_av] MEDEN T ([facility]) Body height 63 [in_i] 63 [in_i] [facility] ([facility]) 5'3" Body mass index (BMI) [Ratio] 27.5 kg/m2 27.5 k g/m2 [facility]AU[facility]UST ([facility]) Systolic blood pressure--sitting 120 mm[Hg] 120 mm[Hg] [facility]UST ([facility]) Ra, medium cuff Diastolic blood pressure--sitting 70 mm[Hg] 70 mm[Hg] [facility] ([facility]) Ra, medium cuff Systolic blood pressure--supine 124 mm[Hg] 124 mm[Hg] [facility] Ra, medium cuff Diastolic blood pressure--supine 78 mm[Hg] 78 mm[Hg] [facility]) Ra, medium cuff Systolic blood pressure--standing 112 mm[Hg] 11 2 mm[Hg] [facility]) Ra, medium cuff Diastolic blood pressure--standing 68 mm[Hg] 6 8 mm[Hg] [facility]) Ra, medium cuff Systolic blood pressure 130 mm[Hg] 130 mm[Hg] [facility] ([facility]) Diastolic blood pressure 90 mm[Hg] 90 mm[Hg] [facility] ([facility]) Heart rate 60 /min 60 /min [facility] ([facility]) Oxygen saturation in Arterial blood by Pulse oximetry 98 % 98 % [facility] ([facility]) Body height 63 [in_i] 63 [in_i] [facility] ([facility]) 5'3" Body weight 161.00 [lb_av] 161.00 [lb_av] [facility] ([facility]) Body mass index (BMI) [Ratio] 28.5 kg/m2 28.5 k g/m2 [facility] ([facility]) Beyer body weight 124 [lb_av] 124 [lb_av] [facility] ([facility]) Body weight 73.030 kg 73.030 kg [facility] ([facility]) Body surface area Derived from formula 1.76 m2 1.76 m2 [facility] ([facility]) Systolic blood pressure 133 mm[Hg] 133 mm[Hg] [facility] Diastolic blood pressure 74 mm[Hg] 74 mm[Hg] [facility] ([facility]) Heart rate 61 /min 61 /min [facility] ([facility]) Oxygen saturation in Arterial blood by Pulse oximetry 97 % 97 % [facility] ([facility]) Body weight 166.00 [lb_av] 166.00 [lb_av] [facility] Body weight 75.298 kg 75.298 kg [facility] ([facility]) Body weight 164.00 [lb_av] 164.00 [lb_av] [facility] T ([facility]) Body mass index (BMI) [Ratio] 29.0 kg/m2 29.0 k g/m2 [facility] Beyer body weight 124 [lb_av] 124 [lb_av] [facility] T ([facility]) Body height 63 [in_i] 63 [in_i] [facility] 5'3" Body weight 74.390 kg 74.390 kg [facility] ([facility]) Body surface area Derived from formula 1.78 m2 1.78 m2 [facility] ([facility]) Oxygen saturation in Arterial blood by Pulse oximetry 99 % 99 % [facility] ([facility]) Body height 63 [in_i] 63 [in_i] [facility] ([facility]) 5'3" Body weight 164.00 [lb_av] 164.00 [lb_av] [facility] T ([facility]) Body mass index (BMI) [Ratio] 29.0 kg/m2 29.0 k g/m2 [facility] ([facility]) Beyer body weight 124 [lb_av] 124 [lb_av] [facility] T ([facility]) Body weight 74.390 kg 74.390 kg [facility] ([facility]) Body surface area Derived from formula 1.78 m2 1.78 m2 [facility] ([facility]) Systolic blood pressure 140 mm[Hg] 140 mm[Hg] [facility] Diastolic blood pressure 90 mm[Hg] 90 mm[Hg] [facility] ([facility]) Heart rate 62 /min 62 /min [facility] ([facility]) Oxygen saturation in Arterial blood by Pulse oximetry 99 % 99 % [facility] ([facility]) Body surface area Derived from formula 1.79 m2 1.79 m2 [facility] ([facility]) Systolic blood pressure 130 mm[Hg] 130 mm[Hg] M [facility] ([facility]) Body height 63 [in_i] 63 [in_i] [facility] ([facility]) 5'3" Body weight 166.00 [lb_av] 166.00 [lb_av] [facility] T ([facility]) Body mass index (BMI) [Ratio] 29.4 kg/m2 29.4 k g/m2 [facility] ([facility]) Beyer body weight 124 [lb_av] 124 [lb_av] [facility] T ([facility]) Body weight 75.298 kg 75.298 kg [facility] ([facility]) Diastolic blood pressure 80 mm[Hg] 80 mm[Hg] [facility] ([facility]) Heart rate 62 /min 62 /min [facility] ([facility]) Oxygen saturation in Arterial blood by Pulse oximetry 98 % 98 % [facility] Systolic blood pressure--supine 150 mm[Hg] 150 mm[Hg] [facility] ([facility]) Omron, large cuff/Ra; HR: 55 bpm Body height 63 [in_i] 63 [in_i] [facility] ([facility]) 5'3" Diastolic blood pressure--sitting 76 mm[Hg] 76 mm[Hg] [facility] ([facility]) CBP, large cuff/Ra Diastolic blood pressure--supine 80 mm[Hg] 80 mm[Hg] [facility] ([facility]) Omron, large cuff/Ra; HR: 55 bpm Body weight 175.00 [lb_av] 175.00 [lb_av] MEDEN T ([facility]) Body mass index (BMI) [Ratio] 31.0 kg/m2 31.0 k g/m2 [facility] ([facility]) Heart rate 57 /min 57 /min [facility] ([facility]) Systolic blood pressure--sitting 137 mm[Hg] 137 mm[Hg] [facility] ([facility]) CBP, large cuff/Ra Systolic blood pressure--standing 101 mm[Hg] 10 1 mm[Hg] [facility] ([facility]) Omron, large cuff/Ra; HR: 62 bpm Diastolic blood pressure--standing 64 mm[Hg] 6 4 mm[Hg] [facility] ([facility]) Omron, large cuff/Ra; HR: 62 bpm Systolic blood pressure 163 mm[Hg] 163 mm[Hg] M [facility] ([facility]) Diastolic blood pressure 85 mm[Hg] 85 mm[Hg] [facility] ([facility]) Heart rate 65 /min 65 /min [facility] ([facility]) Respiratory rate 18 /min 18 /min [facility] ( [facility]) Oxygen saturation in Arterial blood by Pulse oximetry 92 % 92 % [facility] ([facility])
[2021-01-16] MEDS ORDERED: MM S100C PO (12:34)
[2021-01-16] MEDS ORDERED: ECOT81TA5 PO (12:34)
[2021-01-16] MEDS ORDERED: LEVO112T2 PO (12:34)
[2021-01-16] MEDS ORDERED: ATOR1TAB21 PO (12:34)
[2021-01-16] MEDS ORDERED: MYRB25TA PO (12:34)
--- OUTSIDE RECORDS SUMMARY | 2021-01-16 14:31 | CCD ---
Author Author [facility] Organization [facility] Address Unknown Phone Unavailable Care Team Providers Care Doffer Name Role Phone Dagoberto Rooney MD Unavailable [...] Obdulia MS, RPA-C Unavailable Unav ailable Bartoszewski, Ymla Obdulia MS, RPA-C Unavailable Unav ailable Bartoszewski, [...] Obdulia MS, RPA-C Unavailable Unav ailable Bartoszewski, Myal Obdulia MS, RPA-C Unavailable Unav ailable Bartoszewski, [...] ANTECOL, Alley BARRIENTOS MD Unavailable Unavailable ANTECOL, lAley BARRIENTOS MD Unavailable Unavailable ANTECOL, Alley BARRIENTOS [...] Unavailable BC, BHARATH FLOWERS Unavailable Unavailable BC, BAHRATH FLOWERS Unavailable Unavailable BC, BHARATH FLOWERS Unavailable Unavailable BC, BHARATH FLOWERS Unavailable Unavailable BC, BHARATH FLOWRES Unavailable Unavailable BC, BHARATH FLOWERS Unavailable Unavailable [...] Mamie Israel MD Unavailable Unavailable Pisaniello, Mamie Isarel MD Unavailable Unavailable Pisaniello, Mamie Israel MD [...] Mamie Lindy MD Unavailable Unavailable Pisaniello, Mamie Lidny MD Unavailable Unavailable Pisaniello, Mamie Lindy MD [...] is protected by Article 27-F of the [facility] Public Health law. If you continue you may have access to information: Regarding HIV / AIDS; Provided by facilities licensed or operated by the [facility] Office of Mental Health; or Provided by the [facility] Office for People With Developmental Disabilities. If such information is present, then the following [facility] mandated warning applies: This information has been [...] law may result in a fine or alf sentence or both. A general authorization for the release of medical or other information is NOT sufficient authorization for further disc losure. Allergies and Adverse Reactions Type Description Substance Reaction Status Data Source(s ) Drug allergy No Known Drug Allergies No Known Drug Allergies [facility] Food allergy No Known Food Allergies No Known Food Allergies [facility] Family History Family Member Name Family Member Gender Family Member Status Date o f Status Description Data Source(s) Unknown Condition [facility] Unknown Condition [facility] Hospital Unknown Condition [facility] Unknown Condition [facility] Unknown Condition [facility] Unknown Condition [facility] Condition [facility] Unknown Condition [facility] Unknown Condition [facility] Unknown Condition [facility] Unknown Condition [facility] Unknown Condition [facility] Unknown Condition [facility] Unknown [facility] Condition [facility] Unknown Condition [facility] Unknown Condition [facility] Condition [facility] Unknown Condition [facility] Unknown Condition [facility] Unknown Condition [facility] Unknown Condition [facility] Unknown Condition [facility] Unknown Condition [facility] Unknown Condition [facility] Unknown Condition [facility] Unknown Condition [facility] Unknown Condition [facility] Unknown Condition [facility] Unknown Condition [facility] Unknown Condition [facility] Unknown Condition [facility] Unknown Condition [facility] Unknown Condition [facility] Unknown Condition [facility] Unknown Condition [facility] Unknown Condition [facility] Encounters Encounter Providers Location Date Indications Data Source(s ) Outpatient Attender: BHARATH YANCEY MDReferrer: BHARATH YANCEY MD 12/12/2020 07:26:00 AM EDT [facility] Outpatient Attender: Lindy Quintana MDReferrer: BHARATH YANCEY MD 12/11/2020 11:45:00 AM EDT - 12/11/2020 11:59:00 PM EDT [facility] Outpatient Attender: BHARATH YANCEY MDReferrer: BHARATH YANCEY MD 11/10/2020 02:10:00 PM EDT [facility] Outpatient Attender: MIRIAN CHESTER Main Office 11/10/2020 1 0:15:00 AM EDT [facility] ([facility]) Outpatient Attender: Iliana Johnson PH.D., M.Doris Palmer/Chasity/Bowen barr/Radha 11/04/2020 03:00:00 PM EDT [facility] ([facility] dorota ) Outpatient Attender: MARVIN POMPA MD 10/23/19 02:40:00 PM EDT - 10/22/2020 02:40:00 PM EDT [facility] Outpatient Attender: Dagoberto Rooney MD Main office [facility] 10/10/2020 11:45:00 AM EDT [facility] ([facility] LORENZO hines) Outpatient Attender: Iliana Johnson PH.Nancy., M.Doris Palmer/Boswell/A ngel/Reindl 10/07/2020 02:45:00 PM EDT [facility] ([facility] Diane raya ) Outpatient Attender: MARC HICKS 09/24/2020 07:55:00 AM EDT CKD STAGE 3 [facility] CKD STAGE 3 Outpatient Attender: Iliana Johnson PH.D., M.D. Estela/Boswell/A ngel/Reindl 09/17/2020 11:15:00 AM EDT [facility] ([facility] Diane raya ) Outpatient Attender: BHARATH YANCEY MD 09/16/2020 01:01:00 PM EDT S/P FALL, NASAL TRAUMA [facility] S/P FALL, NASAL TRAUMA Outpatient Attender: BHARATH Arshaderrer: BHARATH YANCEY MD 09/16/2020 10:49:00 AM EDT - 09/16/2020 01:48:00 PM EDT [facility] Office Visit Attender: Dagoberto Rooney MD Main office [facility] 07/10/2020 02:30:00 PM EDT [facility] ([facility] LORENZO hines) Outpatient Attender: BHARATH DIXONeferrer: BHARATH YANCEY MD 05/21/2020 11:22:00 AM EST - 05/21/2020 12:14:00 PM EST [facility] Outpatient Attender: ILIANA PARADA MDAttender: BHARATH YANCEY MD 05/21/2020 10:26:00 AM EST N18.30,I50.9,R60.0,I50.32 [facility] N18.30,I50.9,R60.0,I50.32 Outpatient Attender: ILIANA PARADA MD Main Office 05/09/2020 11:30:00 AM EST [facility] ([facility]) Outpatient Attender: MARVIN POMPA MD 04/23/19 02:01:00 PM EST - 04/23/2020 02:01:00 PM EST [facility] Outpatient Attender: Obdulia Truong MS, RPA-C Family Francia raya 04/23/2020 01:00:00 PM EST [facility] Outpatient Attender: BHARATH YANCEY MD 04/16/2020 02:15:00 PM ES T edema R60.9 [facility] edema R60.9 Outpatient Attender: BHARATH YANCEY MDReferrer: BHARATH YANCEY MD 04/16/2020 01:05:00 PM EST - 04/16/2020 02:11:00 PM [facility] Outpatient Attender: BHARATH YANCEY MDReferrer: BHARATH YANCEY MD 02/08/2020 02:52:00 PM EST - 02/08/2020 04:44:00 PM [facility] Office Visit Attender: Dagoberto Rooney MD Main office - [facility] 01/23/2020 03:00:00 PM EDT [facility] ([facility], ) Outpatient Attender: BHARATH YANCEY MD 11/09/2019 12:30:00 PM ED T [facility] Medications Medication Brand Name Start Date Product Form Dose Route Admi nistrative Instructions Pharmacy Instructions Status Indications Reaction Description Data Source(s) Cholecalciferol 1000 UNT Oral Capsule Vitamin D3 11/09/2020 12:00:00 AM EDT ORAL active [facility] Multi Vitamin And Minerals 11/09/2020 12:00:00 AM EDT active [facility] ([facility]) Melatonin 10 MG Oral Tablet Melatonin 11/09/2020 12:00:00 AM EDT ORAL active [facility] ([facility]) coenzyme Q10 200 MG Oral Capsule Co-Enzyme Q10 11/09/2020 12:00:00 AM EDT ORAL active [facility] ([facility]) Docusate Sodium 100 MG Oral Tablet Docusate Sodium 11/09/2020 12:00 :00 AM EDT ORAL active [facility] ([facility]) Amoxicillin 500 MG Oral Capsule Amoxicillin 09/17/2020 12:00:00 AM EDT ORAL completed [facility] ([facility], ) Levothyroxine Sodium 0.125 MG Oral Tablet Levothyroxine 09/16/2020 12:44:45 PM EDT 125 MCG active [facility] 24 HR mirabegron 25 MG Extended Release Oral Tablet Mirabegron (Myrbetriq) 25 mg tablet extended release 24 hr Mirabegron (Myrbetriq) 25 mg tablet exte nded release 24 hr 05/26/2020 03:09:28 PM EST 25 MG active [facility] Hydrochlorothiazide 25 MG / Triamterene 37.5 MG Oral Capsule Triamterene-Hydrochlorothiazid Triamterene-Hydrochlorothiazid 05/26/2020 03:09:20 PM EST 1 CAP completed [facility] atorvastatin 20 MG Oral Tablet Atorvastatin Atorvastatin 05/26/2020 03:09:13 PM EST 20 MG active [facility] Hydrochlorothiazide 25 MG / Triamterene 37.5 MG Oral Capsule Triamterene-Hydrochlorothiazid Triamterene-Hydrochlorothiazid 05/23/2020 09:29:27 AM EST 1 CAP completed [facility] 24 HR mirabegron 25 MG Extended Release Oral Tablet Mirabegron (Myrbetriq) 25 mg tablet extended release 24 hr Mirabegron (Myrbetriq) 25 mg tablet exte nded release 24 hr 05/23/2020 09:29:24 AM EST 25 MG completed [facility] atorvastatin 20 MG Oral Tablet Atorvastatin Atorvastatin 05/23/2020 09:29:21 AM EST 20 MG completed [facility] Hydrochlorothiazide 25 MG / Triamterene 37.5 MG Oral Capsule Triamterene-Hydrochlorothiazid Triamterene-Hydrochlorothiazid 05/20/2020 01:36:01 PM EST 1 CAP completed [facility] atorvastatin 20 MG Oral Tablet Atorvastatin Atorvastatin 05/09/2020 02:59:15 PM EST 20 MG completed [facility] Hydrochlorothiazide 25 MG / Triamterene 37.5 MG Oral C apsule Triamterene/Hydrochlorothiazide 05/08/2020 12:00:00 AM EST ORAL active [facility] atorvastatin 20 MG Oral Tablet Atorvastatin Calcium 05/08/2020 1 2:00:00 AM EST ORAL active [facility] ( [facility]) Aspirin 81 MG Chewable Tablet Aspirin 05/08/2020 12:00:00 AM EST ORAL active [facility] ([facility] 24 HR mirabegron 25 MG Extended Release Oral Tablet [Myrbetr iq] Myrbetriq 05/08/2020 12:00:00 AM EST ORAL active [facility] ([facility]) Carbidopa 25 MG / Levodopa 100 MG Oral Tablet Carbidopa-Levo dopa 05/08/2020 12:00:00 AM EST ORAL active [facility] ([facility]) ammonium lactate 120 MG/ML Topical Lotion Ammonium Lactate A mmonium Lactate 04/16/2020 02:00:23 PM EST 1 APPLIC active [facility] ammonium lactate 120 MG/ML Topical Lotion Ammonium Lactate A mmonium Lactate 04/16/2020 02:00:23 PM EST 1 APPLIC active [facility] Carbidopa 25 MG / Levodopa 100 MG Disintegrating Oral Tablet Carbidopa-Levodopa Carbidopa-Levodopa 04/16/2020 01:20:35 PM EST 1 TAB acti ve [facility] Carbidopa 25 MG / Levodopa 100 MG Disintegrating Oral Tablet Carbidopa-Levodopa Carbidopa-Levodopa 04/16/2020 01:20:35 PM EST 1 TAB act ve [facility] Comp.Stocking,Knee,Long,Medium 02/08/2020 04:35:56 PM EST 0 active [facility] l Comp.Stocking,Knee,Long,Medium 02/08/2020 04:35:56 PM EST 0 active [facility] l Comp.Stocking,Knee,Long,Medium 02/08/2020 04:35:56 PM EST 0 active [facility] l Levothyroxine Sodium 0.125 MG Oral Tablet Levothyroxine 12/13/2019 01:20:54 PM EDT 125 MCG active [facility] Levothyroxine Sodium 0.125 MG Oral Tablet Levothyroxine 12/13/2019 01:20:54 PM EDT 125 MCG completed [facility] Levothyroxine Sodium 0.125 MG Oral Tablet Levothyroxine 12/13/2019 01:20:54 PM EDT 125 MCG active [facility] Levothyroxine Sodium 0.125 MG Oral Tablet Levothyroxine 09/25/2019 10:37:19 AM EDT 125 MCG completed [facility] Levothyroxine Sodium 0.125 MG Oral Tablet Levothyroxine 09/25/2019 10:37:19 AM EDT 125 MCG completed [facility] Levothyroxine Sodium 0.125 MG Oral Tablet Levothyroxine 09/25/2019 10:37:19 AM EDT 125 MCG completed [facility] atorvastatin 20 MG Oral Tablet Atorvastatin Atorvastatin 05/14/2019 03:26:48 PM EST 20 MG completed [facility] Hydrochlorothiazide 25 MG / Triamterene 37.5 MG Oral Capsule Triamterene- Hydrochlorothiazid (Dyazide) 37.5-25 mg capsule Triamterene-Hydrochlorothiazid (Dyazide) 37.5-25 mg capsule 05/14/2019 03:26:26 PM EST 1 CAP completed [facility] 24 HR mirabegron 25 MG Extended Release Oral Tablet Mirabegron (Myrbetriq) 25 mg tablet extended release 24 hr Mirabegron (Myrbetriq) 25 mg tablet exte nded release 24 hr 05/14/2019 03:26:07 PM EST 25 MG completed [facility] Melatonin 10 MG Oral Tablet Melatonin 01/09/2018 02:26:00 PM EDT 10 MG completed [facility] Melatonin 10 MG Oral Tablet Melatonin 01/09/2018 02:26:00 PM EDT 10 MG completed [facility] Melatonin 10 MG Oral Tablet Melatonin 01/09/2018 02:26:00 PM EDT 10 MG completed [facility] Carbidopa 25 MG / Levodopa 100 MG Disintegrating Oral Tablet Carbidopa-Levodopa Carbidopa-Levodopa 06/17/2017 02:13:00 PM EDT 1 TAB comp [facility] Carbidopa 25 MG / Levodopa 100 MG Disintegrating Oral Tablet Carbidopa-Levodopa Carbidopa-Levodopa 06/17/2017 02:13:00 PM EDT 1 TAB comp [facility] Insurance Providers Payer name Policy type / Coverage type Policy ID Covered libertarian ID Covered libertarian's relationship to marshall Policy Marshall Plan Information [employer] [id number] Medicare Natl Govt Servic Medicare Primary [id number] Self [id number] Medicare Natl Govt Servic Medicare Primary [id number] Self Medicare Natl Govt Servic Medicare Primary [id number] Self [id number] [employer] Medigap Part B [id number] Self [id number] [employer] Medigap Part B [id number] Self [id number] MEDICARE [id number] SP [id number] A [employer] Medigap Part B [id number] Self [id number] [facility] [id number] SP [id number] A MEDICARE [id number] [facility] [id number] 18 [id number] MEDICARE PART A [facility] [id number] 18 [id number] [facility] [id number] SP [id number] Problems, Conditions, and Diagnoses Code Display Name Description Problem Type Effective Dates Data Source(s) Z71.3 Dietary management surveillance Dietary management sam veillance Problem 11/10/2020 12:00:00 AM EDT [facility] ([facility]) R47.02 Disturbance in speech Disturbance in speech Problem 10/07/2020 12:00:00 AM EDT [facility] ([facility], ) J34.2 Deviated nasal septum Deviated nasal septum Problem 09/17/2020 12:00:00 AM EDT [facility] ([facility], ) S02.2xxB Open fracture of nasal bones Open fracture of nasal mercedez kori Problem 09/17/2020 12:00:00 AM EDT [facility] ([facility], ) I50.32 Chronic diastolic heart failure Chronic diastolic hear t failure Problem 05/09/2020 12:00:00 AM EST [facility] ([facility]) I10 Essential hypertension Essential hypertension Problem 05/09/2020 12:00:00 AM EST [facility] ([facility]) I95.1 Orthostatic hypotension Orthostatic hypotension Proble m 05/09/2020 12:00:00 AM EST [facility] ([facility]) R60.0 Edema Edema Problem 05/09/2020 12:00:00 AM ES T [facility] ([facility]) R94.31 Electrocardiogram abnormal Electrocardiogram abnormal Problem 05/09/2020 12:00:00 AM EST [facility] ([facility]) I44.0 First degree atrioventricular block First degree atrioventricular block Problem 05/09/2020 12:00:00 AM EST [facility] R35.0 Increased frequency of urination Increased frequency o f urination Problem 04/23/2020 12:00:00 AM EST [facility] ([facility]) Surgeries/Procedures Procedure Description Date Indications Data Source(s) ECG ROUTINE ECG W/LEAST 12 LDS W/I&R 11/10/2020 12:00: 00 AM EDT [facility] ([facility]) OFFICE OUTPATIENT VISIT 25 MINUTES 11/10/2020 12:00:00 AM EDT [facility] ([facility]) OFFICE OUTPATIENT VISIT 15 MINUTES 11/04/2020 12:00:00 AM EDT [facility] ([facility], ) OFFICE OUTPATIENT VISIT 25 MINUTES 10/10/2020 12:00:00 AM EDT [facility] ([facility], ) OFFICE OUTPATIENT VISIT 15 MINUTES 10/07/2020 12:00:00 AM EDT [facility] ([facility], ) Echography of kidney (procedure) 09/24/2020 08:14:00 A M [facility] OFFICE OUTPATIENT NEW 45 MINUTES 09/17/2020 12:00:00 A M EDT [facility] ([facility], ) Diagnostic radiography of nasal bones (procedure) 09/16/2020 01:08:59 PM [facility] ECHO TTHRC R-T 2D W/WOM-MODE COMPL SPEC&COLR DOP 08/20 12:00:00 AM EDT [facility] ([facility]) PHYSICIAN TELEPHONE EVALUATION 11-20 MIN 07/10/2020 12 :00:00 AM EDT [facility] ([facility], ) ECG ROUTINE ECG W/LEAST 12 LDS W/I&R 05/09/2020 12:00: 00 AM EST [facility] ([facility]) Arterial Pressure Waveform Analysis For Assessment Of Centra l Art 05/09/2020 12:00:00 AM EST [facility] ([facility]) OFFICE OUTPATIENT NEW 45 MINUTES 05/09/2020 12:00:00 A M EST [facility] ([facility]) Ultrasound scan of lower limb veins (procedure) 2020 02:42:00 PM EST [facility] Results ID Date Data Source [id number] 12/12/2020 09:19:00 AM EDT [facility] Patient Name: BHARATH BHARDWAJ : 1940 Sex: M Pt Unit #: [id number] Location:[facility] Provider: Visit Date/Time: 12/12/20 Primary Insurance: MEDICARE [facility] Secondary Insurance: [facility] Intake Intake Visit Reasons: Telemed Visit Nurse [...] from provider to finish tele med visit. 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 <Electronically signed by Bharath Yancey DO> 12/12/20 1044 Name Value Range Interpretation Code Description Data Carin rce(s) Supporting Document(s) ID Date Data Source [id number] 12/11/2020 05:13:00 PM EDT [facility] Patient Name: BHARATH BHARDWAJ : 1940 Sex: M Pt Unit #: [id number] Location:[facility] Provider: Visit Date/Time: 12/11/20 Primary Insurance: MEDICARE [employer] Secondary Insurance: [facility] ADDENDUM I spoke to public [employer] about this family. We would like them to get tested here but they declined.[facility] health cannot count them in the [facility]'s statistics unless they have an official test. [...] routinely and move around. pt has dementia. 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) Dementia Dementia [...] completed: high school graduate service: Yes senior living: No current occupational status: retired pets and [...] Acute Code(s): U07.1 - COVID-19 SNOMED Code(s): 456638338 Category: Medical Plan: We talked about the [...] <Electronically signed by Lindy Quintana MD> 12/11/20 8156 Name Value Range Interpretation Code Description Data Carin rce(s) Supporting Document(s) ID Date Data Source [id number] 11/10/2020 02:42:00 PM EDT [facility] Patient Name: BHARATH BHARDWAJ : 1940 Sex: M Pt Unit #: [id number] Location:[facility] Provider: Visit Date/Time: 11/10/20 Primary Insurance: MEDICARE [facility] Secondary Insurance: [facility] Intake Vital Signs 11/10/20 14:43 Current Height [...] HPI Additional HPI HPI Details: agree with [employer] intake ent did a barium swallowing and found a pocket in the GI tract recommending flexion of the neck when drinking with straw, smaller bites also needs to have an EGD to further evaluate 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.] I10 - Essential (primary) hypertension SNOMED Code(s): 14365407 Category: Medical Plan: d/c bp med bp [...] Hypertension (GEN) Coding Level of Care Code 73345 Est Pt Intermediate Comp Exam Detailed Diagnoses HTN (hypertension) I10 <Electronically signed by Bharath Yancey DO> 11/10/20 1815 Name Value Range Interpretation Code Description Data Carin rce(s) Supporting Document(s) ID Date Data Source [id number] 10/22/2020 11:59:00 AM EDT [facility] ([facility]) Name Value Range Interpretation Code Description Data Carin rce(s) Supporting Document(s) Color of Urine Laboratory test result [facility] ([facility]) Appearance of Urine Laboratory test result [facility] ([facility]) Spec [place] 1.005 1.001-1.030 [facility] ([facility]) pH of Urine by Test strip 7 5-9 MED[facility] NT ([facility]) Nitrate [Presence] in Urine Laboratory test result [facility] ([facility]) Leukocytes Laboratory test result [facility] ([facility]) Inhouse Glucose Laboratory test result [facility] ([facility]) Protein [Presence] in Urine by Test strip Laboratory test result [facility] ([facility]) Ketones [Presence] in Urine by Test strip Laboratory test result [facility] ([facility]) Bilirubin.total [Presence] in Urine by Test strip Laboratory test res ult [facility] ([facility]) Urobilinogen Laboratory test result [facility] ([facility]) Blood type and Indirect antibody screen panel - Blood Laboratory test result [facility] ([facility]) ID Date Data Source [id number] 09/24/2020 06:33:00 PM EDT [place] [id number] [place] [id number] [phone] NAME SEX PT STATUS ACCOUNT NUMBER BHARATH BHARDWAJ REG REF [id number] ORDERING PHYSICIAN LOCATION MEDICAL RECORD NO. Marc Hicks MD [id number] ATTENDING PHYSICIAN DATE OF DATE OF EXAM/TIME [...] rce(s) Supporting Document(s) ID Date Data Source [id number] 09/18/2020 10:17:00 AM EDT [facility] ([facility]) Name Value Range Interpretation Code Description Data Carin rce(s) Supporting Document(s) Uric Acid 5.1 2.6-6 [facility] Magnesium Level 2.08 1.6-2.6 [facility] ([facility]) ID Date Data Source [id number] 09/18/2020 10:17:00 AM EDT [facility] ([facility]) Name Value Range Interpretation Code [...] [facility]) ID Date Data Source [id number] 09/18/2020 10:17:00 AM EDT [facility] ([facility]) Name Value Range Interpretation Code Description Data Carin rce(s) Supporting Document(s) Glucose 103 70-106 [facility] Blood Urea Nitrogen 25.2 7-18 [facility] ([facility]) Creatinine 1.3 0.55-1.3 [facility] ([facility]) Glomerular filtration rate/1.73 sq M.pre dicted [Volume Rate/Area] in Serum or Plasma by Creatinine-based formula (MDRD) 53 [facility] ([facility]) Potassium 3.52 3.5-5.5 [facility] Sodium 135.8 135-145 [facility] Chloride 98.1 94-110 [facility] Carbon Dioxide 33.1 21-32 [facility] ([facility]) Calcium 8.8 8.5-10.1 [facility] Phosphorus 2.9 2.5-4.9 [facility] ([facility]) Albumin 4.0 3.5-4.7 [facility] ([facility] ID Date Data Source [id number] 09/16/2020 02:28:00 PM EDT [facility] [address] [place] [address] [phone] NAME SEX PT STATUS ACCOUNT NUMBER BHARATH BHARDWAJ REG REF [id number] ORDERING PHYSICIAN LOCATION MEDICAL RECORD NO. Bharath DO Bc RAD [id number] ATTENDING PHYSICIAN DATE OF DATE OF EXAM/TIME Bharath Yancey DO 1940 09/16/20 / 8 TYPE / EXAM Xray Nasal bones REASON FOR EXAM s/p fall , nasal trauma CLINICAL HISTORY: [facility] s/p fall , nasal trauma COMPARISON: None FINDINGS: Comminuted, acute- appearing fracture of the nasal bones. The remaining bones visualized appear normal. The sinuses are unremarkable. IMPRESSION: Comminuted, acute-appearing fracture of the nasal bones. Reported By Jack Osullivan MD on 09/16/201427 Signed By Jack Osullivan MD on 09/16/201428 Date Time CC: Bharath Yancey DO; Jack Osullivan MD Techn: [facility] Trans Dt/Tm: Trans by: DT Prt Dt/Tm: [id number]: Total DLP = 0.00 mGy-cm Fluoroscopy Time (in secs): Name Value Range Interpretation Code Description Data Carin rce(s) Supporting Document(s) ID Date Data Source [id number] 09/16/2020 11:51:00 AM EDT [facility] Patient Name: BHARATH BHARDWAJ : 1940 Sex: M Pt Unit #: [id number] Location:[facility] Provider: Visit Date/Time: 09/16/20 Primary Insurance: MEDICARE [facility] Secondary Insurance: [facility] Intake Vital Signs 09/16/20 12:00 Current Height [...] moving in with his daughter next week. 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 Review of Systems Const Denies body [...] visit, subsequent Z00.00 C omment please include 30791 for nasal trauma <Electronically signed by Bharath LYNN 09/16/20 1753 Name Value Range Interpretation Code Description Data Carin rce(s) Supporting Document(s) ID Date Data Source [id number] 05/21/2020 11:24:00 AM [facility] Patient Name: Bharath Bhardwaj : 1940 Sex: M Pt Unit #: [id number] Location:[facility] Provider: Visit Date/Time: 05/21/20 Primary Insurance: [facility]ICARE [facility] Secondary Insurance: [facility] Intake Vital Signs 05/21/20 11:25 Current Height [...] in his legs today.Waiting to hear from cream hauler yet. 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 mary , daughter in law Hypertension [...] Orientation: gonzález rt, awake and oriented x3 [facility] Head: normal to inspection, normocephalic and [...] I10 - Essential (primary) hypertension SNOMED Code(s): 85388294 Category: Medical Plan - Bharath Yancey, DO: good control continue current medical treatment f/u 4 months for annual medicare wellness exam Mary agrees with plan Coding Level of Care Code 34406 Est Pt Intermediate Comp Exam Detailed Diagnoses HTN (hypertension) I10 <Electronically signed by Bharath Yancey DO> 05/21/20 1336 Name Value Range Interpretation Code Description Data Carin rce(s) Supporting Document(s) ID Date Data Source [id number] 05/21/2020 10:48:00 AM EST [facility] Name Value Range Interpretation Code Description Data Carin rce(s) Supporting Document(s) Leukocytes [#/volume] in Blood by Automated count 4.8 10*3/uL 4.45-10 .71 N [facility] Erythrocytes [#/volume] in Blood by Automated count 3.72 10*6/uL 4.3-6.1 Below low normal [facility] Hemoglobin [Moles/volume] in Blood 11.7 g/dL 13-18 Below low no rmal [facility] Hematocrit [Volume Fraction] of Blood by Automated count 35.7 % 42-52 Below low normal [facility] Erythrocyte mean corpuscular volume [Ent itic volume] in Cord blood by Automated count 96.0 fL 80-96 N [facility] ital Erythrocyte mean corpuscular hemoglobin [Entitic mass] by Automated count 31.5 pg 27-31 Above high normal [facility] spital Erythrocyte mean corpuscular hemoglobin concentration [Mass/volume] in Cord blood 32.8 g/dL 33-37 Below low normal [facility] Erythrocyte distribution width [Entitic volume] by Automated count 14 % 11-15 N [facility] Platelets [#/volume] in Blood by Automated count 156 10*3/uL 130-472 N [facility] Platelet mean volume [Entitic volume] in Blood 8.1 fL 9.1-13. 1 Below low normal [facility] Neutrophils/100 leukocytes in Blood by Automated count 55.4 % 41- 77 N [facility] Neutrophils [#/volume] in Blood by Automated count 2.6 U 1.7-7.6 N [facility] Lymphocytes/100 leukocytes in Blood by Automated count 25.6 % 14- 46 N [facility] Lymphocytes [#/volume] in Blood by Automated count 1.2 U 0.6-4.6 N [facility] Monocytes/100 leukocytes in Blood by Automated count 15.9 % 4-12 Above high normal [facility] Monocytes [#/volume] in Blood by Automated count 0.8 U 0.2-1.2 N [facility] Eosinophils/100 leukocytes in Blood by Automated count 2.3 % 0-7 N [facility] Eosinophils [#/volume] in Blood by Automated count 0.1 U 0.0-0.5 N [facility] Basophils/100 leukocytes in Blood by Automated count 0.4 % 0.4-1 .3 N [facility] Basophils [#/volume] in Blood by Automated count 0.0 U 0.0-0.2 N [facility] NUCLEATED RED BLOOD CELL 0 % [facility] NUCLEATED RED BLOOD CELL# 0 U [facility] Immature granulocytes [Presence] in Blood by Automated count 0-2 N [facility] Immature granulocytes [#/volume] in Blood by Automated count 0.0 U 0-0.1 N [facility] Manual Differential panel - Blood NO [facility] ID Date Data Source [id number] 05/21/2020 11:39:00 AM EST [facility] Name Value Range Interpretation Code Description Data Carin rce(s) Supporting Document(s) Urea nitrogen [Mass/volume] in Serum or Plasma 26 mg/dL 9-23 Above high normal [facility] Sodium [Moles/volume] in Serum or Plasma 140 mmol/L 132-146 N [facility] Potassium [Moles/volume] in Serum or Plasma 3.7 mmol/L 3.5-5.5 N [facility] Chloride [Moles/volume] in Serum or Plasma 104 mmol/L 99-109 N [facility] Carbon dioxide, total [Moles/volume] in Serum or Plasma 32 mmol/ L 20-31 Above high normal [facility] Anion gap in Serum or Plasma 8 mmol/L 8-16 N [facility] Glucose [Mass/volume] in Serum or Plasma 87 mg/dL 74-106 N [facility] Creatinine 1.3 mg/dL 0.5-1.1 Above high normal [facility] Glomerular filtration rate/1.73 sq M.pre dicted [Volume Rate/Area] in Serum or Plasma 53 ml/min ABOVE 60 [facility] ital Alanine aminotransferase [Enzymatic acti vity/volume] in Serum or Plasma by With P-5'-P 17 U/L 10-49 N [facility] ital Aspartate aminotransferase [Enzymatic ac tivity/volume] in Serum or Plasma by With P-5'-P 26 U/L 0-33 N [facility] pital Alkaline phosphatase [Enzymatic activity/volume] in Serum or Plasma 81 U/L 45-129 N [facility] Calcium [Mass/volume] in Serum or Plasma 8.9 mg/dL 8.5-10.1 N [facility] Bilirubin.total [Mass/volume] in Serum or Plasma 0.7 mg/dL 0.3-1.2 N [facility] Albumin [Mass/volume] in Serum or Plasma by Bromocresol purple (BCP) dye binding method 4.0 g/dL 3.2-4.8 N [facility] ital Protein [Mass/volume] in Serum or Plasma 7.6 g/dL 5.7-8.2 [facility] ID Date Data Source [id number] 05/21/2020 11:39:00 AM [facility] Name Value Range Interpretation Code Description Data Carin rce(s) Supporting Document(s) Triglycerides 62 mg/dL 0-150 N [facility] Cholesterol 97 mg/dL 120-200 Below low normal [facility] HDL Cholesterol 44 mg/dL [facility] HDL Less than 40 mg/dL: Major risk for CHDHDL Greater than 59 mg/dL: Low risk for CHD LDL Cholesterol, Calc 41 mg/dL 0-100 N [facility] ID Date Data Source 05/21/2020 11:39:00 AM [facility] Name Value Range Interpretation Code Description Data Carin rce(s) Supporting Document(s) Thyrotropin [Units/volume] in Serum or Plasma by Detec tion limit <= 0.005 mIU/L 3.14 u[iU]/mL 0.35-5.50 [facility] ID Date Data Source [id number] 05/21/2020 11:09:00 AM [facility] Name Value Range Interpretation Code Description Data Carin rce(s) Supporting Document(s) Phosphate [Mass/volume] in Serum or Plasma 2.8 mg/dL 2.4-5.1 [facility] ID Date Data Source [id number] 05/21/2020 11:09:00 AM [facility] Name Value Range Interpretation Code Description Data Carin rce(s) Supporting Document(s) Natriuretic peptide.B prohormone N-Terminal [Mass/volu me] in Serum or Plasma 115.00 pg/mL 0.00-450 [facility] l ID Date Data Source [id number] 05/21/2020 10:40:00 AM EST [facility] ([facility]) Name Value Range Interpretation Code Description Data Carin rce(s) Supporting Document(s) Phosphate [Moles/volume] in Serum or Plasma 2.8 mg/dL 2.4-5.1 [facility] ([facility]) ID Date Data Source [id number] 05/21/2020 10:40:00 AM EST [facility] ([facility]) Name Value Range Interpretation Code Description Data Carin rce(s) Supporting Document(s) TSH SerPl DL<=0.005 mIU/L-aCnc 3.14 u[iU]/mL 0.35-5.50 [facility] ([facility]) N18.30,I50.9,R60.0,I50.32 ID Date Data Source [id number] 05/21/2020 10:40:00 AM EST [facility] ([facility]) Name Value Range Interpretation Code Description Data Carin rce(s) Supporting Document(s) Triglyceride [Mass/volume] in Serum or Plasma 62 mg/dL 0-150 [facility] ([facility]) N18.30,I50.9,R60.0,I50.32 Cholesterol in HDL [Mass/volume] in Serum or Plasma 44 mg/dL [facility] ([facility]) N18.30,I50.9,R60.0,I50.32 Cholesterol [Mass/volume] in Serum or Plasma 97 mg/dL 120-200 [facility] ([facility]) N18.30,I50.9,R60.0,I50.32 Cholesterol in LDL [Mass/volume] in Serum or Plasma by calcu lation 41 mg/dL 0-100 [facility] ([facility]) N18.30,I50.9,R60.0,I50.32 ID Date Data Source [id number] 05/21/2020 10:40:00 AM EST [facility] ([facility]) Name Value Range Interpretation Code Description Data Carin rce(s) Supporting Document(s) Urea nitrogen [Mass/volume] in Serum or Plasma 26 mg/dL 9-23 [facility] ([facility]) N18.30,I50.9,R60.0,I50.32 Sodium [Moles/volume] in Serum or Plasma 140 mmol/L 132-146 [facility] ([facility]) N18.30,I50.9,R60.0,I50.32 Potassium [Moles/volume] in Serum or Plasma 3.7 mmol/L 3.5-5.5 [facility] ([facility]) N18.30,I50.9,R60.0,I50.32 Chloride [Moles/volume] in Serum or Plasma 104 mmol/L 99-109 [facility] ([facility]) N18.30,I50.9,R60.0,I50.32 Carbon dioxide, total [Moles/volume] in Serum or Plasma 32 mmol/L 20 -31 [facility] ([facility]) N18.30,I50.9,R60.0,I50.32 Anion gap in Serum or Plasma 8 mmol/L 8-16 [facility] ([facility]) N18.30,I50.9,R60.0,I50.32 Glucose [Mass/volume] in Serum or Plasma 87 mg/dL 74-106 [facility] ([facility]) N18.30,I50.9,R60.0,I50.32 Glomerular filtration rate/1.73 sq M.pre dicted [Volume Rate/Area] in Serum or Plasma 53 [facility]) N18.30,I50.9,R60.0,I50.32 Creatinine 1.3 mg/dL 0.5-1.1 [facility] ([facility]) N18.30,I50.9,R60.0,I50.32 Aspartate aminotransferase [Enzymatic ac tivity/volume] in Serum or Plasma by With P-5'-P 26 U/L 0-33 [facility]) N18.30,I50.9,R60.0,I50.32 Alanine aminotransferase [Enzymatic acti vity/volume] in Serum or Plasma by With P-5'-P 17 U/L 10-49 [facility] ([facility]) N18.30,I50.9,R60.0,I50.32 Alkaline phosphatase [Enzymatic activity/volume] in Serum or Plasma 81 U/L 45-129 [facility] ([facility]) N18.30,I50.9,R60.0,I50.32 Calcium [Mass/volume] in Serum or Plasma 8.9 mg/dL 8.5-10.1 [facility] ([facility]) N18.30,I50.9,R60.0,I50.32 Bilirubin.total [Mass/volume] in Serum or Plasma 0.7 mg/dL 0.3-1.2 [facility] ([facility]) N18.30,I50.9,R60.0,I50.32 Albumin [Mass/volume] in Serum or Plasma by Bromocresol purple (BCP) dye binding method 4.0 g/dL 3.2-4.8 [facility] ([facility]) N18.30,I50.9,R60.0,I50.32 Protein [Mass/volume] in Serum or Plasma 7.6 g/dL 5.7-8.2 [facility] ([facility]) N18.30,I50.9,R60.0,I50.32 ID Date Data Source [id number] 05/21/2020 10:40:00 AM EST [facility] ([facility] Name Value Range Interpretation Code Description Data Carin rce(s) Supporting Document(s) Leukocytes [#/volume] in Blood by Automated count 4.8 10*3/uL 4.45-10 .71 [facility] ([facility]) N18.30,I50.9,R60.0,I50.32 Erythrocytes [#/volume] in Blood by Automated count 3.72 10*6/uL 4.3- 6.1 [facility] ([facility]) N18.30,I50.9,R60.0,I50.32 Hemoglobin [Moles/volume] in Blood 11.7 g/dL 13-18 [facility] ([facility]) N18.30,I50.9,R60.0,I50.32 Hematocrit [Volume Fraction] of Blood by Automated count 35.7 % 4 2-52 [facility] ([facility]) N18.30,I50.9,R60.0,I50.32 Erythrocyte mean corpuscular volume [Ent itic volume] in Cord blood by Automated count 96.0 fL 80-96 [facility]) N18.30,I50.9,R60.0,I50.32 Erythrocyte mean corpuscular hemoglobin concentration [Mass/volume] in Cord blood 32.8 g/dL 33-37 [facility]) N18.30,I50.9,R60.0,I50.32 Erythrocyte mean corpuscular hemoglobin [Entitic mass] by Automated count 31.5 pg 27-31 [facility] ([employer] [facility]) N18.30,I50.9,R60.0,I50.32 Platelets [#/volume] in Blood by Automated count 156 10*3/uL 130-472 [facility] ([facility]) N18.30,I50.9,R60.0,I50.32 Erythrocyte distribution width [Entitic volume] by Automated count 14 % 11-15 [facility] ([facility]) N18.30,I50.9,R60.0,I50.32 Platelet mean volume [Entitic volume] in Blood 8.1 fL 9.1-13.1 [facility] ([facility]) N18.30,I50.9,R60.0,I50.32 Neutrophils/100 leukocytes in Blood by Automated count 55.4 % 41- 77 [facility] ([facility]) N18.30,I50.9,R60.0,I50.32 Neutrophils [#/volume] in Blood by Automated count 2.6 U 1.7-7.6 [facility] ([facility]) N18.30,I50.9,R60.0,I50.32 Lymphocytes/100 leukocytes in Blood by Automated count 25.6 % 14- 46 [facility] ([address] [facility]) N18.30,I50.9,R60.0,I50.32 Lymphocytes [#/volume] in Blood by Automated count 1.2 U 0.6-4.6 [facility] ([facility]iology [facility]) N18.30,I50.9,R60.0,I50.32 Monocytes [#/volume] in Blood by Automated count 0.8 U 0.2-1.2 [facility] (Cardiology [facility]) N18.30,I50.9,R60.0,I50.32 Monocytes/100 leukocytes in Blood by Automated count 15.9 % 4-12 [facility] ([facility]iology [facility]) N18.30,I50.9,R60.0,I50.32 Eosinophils/100 leukocytes in Blood by Automated count 2.3 % 0-7 [facility] ([facility]iology [facility]) N18.30,I50.9,R60.0,I50.32 Eosinophils [#/volume] in Blood by Automated count 0.1 U 0.0-0.5 [facility] ([facility]) N18.30,I50.9,R60.0,I50.32 Basophils [#/volume] in Blood by Automated count 0.0 U 0.0-0.2 [facility] ([facility]) N18.30,I50.9,R60.0,I50.32 Basophils/100 leukocytes in Blood by Automated count 0.4 % 0.4-1 .3 [facility] (Cardiology [facility]) N18.30,I50.9,R60.0,I50.32 Nucleated Red Blood Cell 0 % [facility] ([facility]) N18.30,I50.9,R60.0,I50.32 Laboratory test finding (navigational concept) 0 U [facility] ([facility]) N18.30,I50.9,R60.0,I50.32 Immature granulocytes [Presence] in Blood by Automated count 0.4 0-2 [facility] ([facility] [facility]) N18.30,I50.9,R60.0,I50.32 Immature granulocytes [#/volume] in Blood by Automated count 0.0 U 0-0.1 [facility] (Cardiology [facility]) N18.30,I50.9,R60.0,I50.32 Manual Differential panel - Blood Laboratory test result [facility] (Cardiology [facility]) N18.30,I50.9,R60.0,I50.32 ID Date Data Source [id number] 04/16/2020 02:44:00 PM [facility] [address] [place] [address] [phone] NAME SEX PT STATUS ACCOUNT NUMBER Bharath Bhardwaj REG REF [id number] ORDERING PHYSICIAN LOCATION MEDICAL RECORD NO. Bharath aYncey DO [id number] ATTENDING PHYSICIAN DATE OF DATE OF EXAM/TIME [...] rce(s) Supporting Document(s) ID Date Data Source [id number] 04/16/2020 01:12:00 PM [facility] Patient Name: Bharath Bhardwaj : 1940 Sex: M Pt Unit #: [id number] Location:[facility] Provider: Visit Date/Time: 04/16/20 Primary Insurance: [facility]ICARE [employer] Secondary Insurance: [facility] Intake Vital Signs 04/16/20 13:12 Current Height [...] wear compression stockings everyday. Has not seen cream hauler or custodial foreman yet. Does have urology 04-13-2020. Does see neurologist 07-10-2020 for his parkinson. 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 (daughter is in the exam room) [...] obese Orientation: alert, awake and oriented x3 [facility] Head: normal to inspection, normocephalic and [...] Code(s): R60.0 - Localized edema SNOMED Code(s): 059115279 Category: Medical Plan - Bharath Yancey DO: venous doppler f/u custodial foreman for assess LV function with 2D echo f/u cream hauler elevate legs as much as possible compression stockings if condition worsens, then go to ER daughter agrees to plan (2) Dry skin: Status: Chronic Code(s): L85.3 - Xerosis cutis SNOMED Code(s): 78337376 Category: Medical Plan - Bharath Yancey DO: lac hydrin as ordered (3) HTN (hypertension): Status: Chronic Code(s): I10 - Essential (primary) hypertension SNOMED Code(s): 94781807 Category: Medical Plan - Bharath Yancey DO: needs better control continue current medical treatment bp diary f/u 4 weeks (4) Obesity: Status: Chronic Code(s): E66.9 - Obesity, unspecified SNOMED Code(s): 200632180 C ategory: Medical Plan - Bharath Yancey DO: lifestyle modifications Orders Other Medications: New: ammonium lactate 12% 1 applic topical BID PRN 400 grams 12RF dry skin Other Orders: Orders: US VENOUS LEG RIGHT Today R60.9 Follow Up: 4 (htn, legs edema) Coding Level of Care Code 35358 Est Pt Extended Comp Exam Detailed Diagnoses Edema of both legs R60.0 Dry skin L85.3 HTN (hypertension) I10 Obesity E66.9 <Electronically signed by Bharath Yancey DO> 04/16/202024 Name Value Range Interpretation Code Description Data Carin rce(s) Supporting Document(s) ID Date Data Source [id number] 02/08/2020 03:21:00 PM [facility] Patient Name: Bharath Bhardwaj : 1940 Sex: M Pt Unit #: [id number] Location:[facility] Provider: Visit Date/Time: 02/08/20 Primary Insurance: MEDICARE [facility] Secondary Insurance: [facility] Intake Vital Signs 02/08/20 15:21 Current Height [...] daughter put on compression stockings that day. Social Studies Department Chair Required: No Accompanied by: Daughter Is patient in pain?: No Allergies No Known Drug Allergies Allergy (Unverified 09/25/19 11:11) HIV Testing Offer - ages 13-64 Requirement for HIV testing offer been met?: Not in age range Do you need a note to return Do you need a note to return to daycare/school/sports/work: No Coronavirus Screening Screening Have you traveled outside of [facility] or [facility] in the last 14 days.: No Has patient experienced coronavirus symptoms: No [facility] Medical History (Updated 02/08/20 @ 17:06 [...] Nutritional Appearance: obese Orientation: alert and awake HENSD Head: normal to inspection, normocephalic and atraumatic [...] kidney disease, stage 3 unspecified SNOMED Code(s): 982811158 Category: Medical Plan - Bharath Yancey, DO: f/u cream hauler if condition worsens, then go to ER Orders: Referrals: Nephrology Referral (3) Congestive heart failure: Status: Acute Comment: reviewed utica surgeon consultation Code(s): I50.9 - Heart failure, unspecified SNOMED Code(s): 12517121 Category: Medical Plan - Bharath Yancey, DO: f/u custodial foreman if condition worsens, then go to ER [...] is a former smoker [facility] ([facility]) Smoking 04/23/2020 12:00:00 AM EST Never Smoked Cigars complet ed Never Smoked Cigars [facility] ([facility]) Vital Signs ID Date Data Source UNK Name Value Range Interpretation Code Description Data Source(s) Body weight 155.00 [lb_av] 155.00 [lb_av] MED[facility] T ([facility]) Body height 63 [in_i] 63 [in_i] [facility] ([facility]) 5'3" Body mass index (BMI) [Ratio] 27.5 kg/m2 27.5 k g/m2 [facility] ([facility]) Systolic blood pressure--sitting 120 mm[Hg] 120 mm[Hg] [facility] ([facility]) Ra, medium cuff Diastolic blood pressure--sitting 70 mm[Hg] 70 mm[Hg] [facility] ([facility]) Ra, medium cuff Systolic blood pressure--supine 124 mm[Hg] 124 mm[Hg] [facility] Ra, medium cuff Diastolic blood pressure--supine 78 mm[Hg] 78 mm[Hg] [facility] ([facility]) Ra, medium cuff Systolic blood pressure--standing 112 mm[Hg] 11 2 mm[Hg] [facility] ([facility]) Ra, medium cuff Diastolic blood pressure--standing 68 mm[Hg] 6 8 mm[Hg] [facility] ([facility]) Ra, medium cuff Systolic blood pressure 130 mm[Hg] 130 mm[Hg] M [facility] ([facility]) Diastolic blood pressure 90 mm[Hg] 90 mm[Hg] [facility] ([facility]) Heart rate 60 /min 60 /min [facility] ([facility]) Oxygen saturation in Arterial blood by Pulse oximetry 98 % 98 % [facility] ([facility]) Body height 63 [in_i] 63 [in_i] [facility] ([facility]) 5'3" Body weight 161.00 [lb_av] 161.00 [lb_av] [facility] ([facility]) Body mass index (BMI) [Ratio] 28.5 kg/m2 28.5 k g/m2 [facility] ([facility]) [place] body weight 124 [lb_av] 124 [lb_av] [facility] ([facility]) Body weight 73.030 kg 73.030 kg [facility] ([facility]) Body surface area Derived from formula 1.76 m2 1.76 m2 [facility] ([facility]) Systolic blood pressure 133 mm[Hg] 133 mm[Hg] [facility] Diastolic blood pressure 74 mm[Hg] 74 mm[Hg] [facility] ([facility]) Heart rate 61 /min 61 /min [facility] ([facility]) Oxygen saturation in Arterial blood by Pulse oximetry 97 % 97 % [facility] ([facility]) Body weight 166.00 [lb_av] 166.00 [lb_av] [facility] Body weight 75.298 kg 75.298 kg [facility] ([facility]) Body weight 164.00 [lb_av] 164.00 [lb_av] [facility] T ([facility]) Body mass index (BMI) [Ratio] 29.0 kg/m2 29.0 k g/m2 [facility] [place] body weight 124 [lb_av] 124 [lb_av] [facility] T ([facility]) Body weight 74.390 kg 74.390 kg [facility] ([facility]) Body surface area Derived from formula 1.78 m2 1.78 m2 [facility] ([facility]) Body height 63 [in_i] 63 [in_i] [facility] ([facility]) 5'3" Oxygen saturation in Arterial blood by Pulse oximetry 99 % 99 % [facility] ([facility]) Body height 63 [in_i] 63 [in_i] [facility] ([facility]) 5'3" Body weight 164.00 [lb_av] 164.00 [lb_av] [facility] ([facility]) Body mass index (BMI) [Ratio] 29.0 kg/m2 29.0 k g/m2 [facility] ([facility]) [place] body weight 124 [lb_av] 124 [lb_av] [facility] ([facility]) Body weight 74.390 kg 74.390 kg [facility] ([facility]) Body surface area Derived from formula 1.78 m2 1.78 m2 [facility] ([facility]) Systolic blood pressure 140 mm[Hg] 140 mm[Hg] [facility] Diastolic blood pressure 90 mm[Hg] 90 mm[Hg] [facility] ([facility]) Heart rate 62 /min 62 /min [facility] ([facility]) Oxygen saturation in Arterial blood by Pulse oximetry 99 % 99 % [facility] ([facility]) Body surface area Derived from formula 1.79 m2 1.79 m2 [facility] ([facility]) Systolic blood pressure 130 mm[Hg] 130 mm[Hg] M [facility] ([facility]) Diastolic blood pressure 80 mm[Hg] 80 mm[Hg] [facility]) Heart rate 62 /min 62 /min [facility] ([facility]) Oxygen saturation in Arterial blood by Pulse oximetry 98 % 98 % [facility] ([facility]) Body height 63 [in_i] 63 [in_i] [facility] ([facility]) 5'3" Body weight 166.00 [lb_av] 166.00 [lb_av] [facility] T ([facility]) Body mass index (BMI) [Ratio] 29.4 kg/m2 29.4 k g/m2 [facility] ([facility]) [place] body weight 124 [lb_av] 124 [lb_av] [facility] T ([facility]) Body weight 75.298 kg 75.298 kg [facility] ([facility]) Body height 63 [in_i] 63 [in_i] [facility] ([facility]) 5'3" Systolic blood pressure--supine 150 mm[Hg] 150 mm[Hg] [facility] ([facility]) [place], large cuff/Ra; HR: 55 bpm Diastolic blood pressure--sitting 76 mm[Hg] 76 mm[Hg] [facility] ([facility]) CBP, large cuff/Ra Diastolic blood pressure--supine 80 mm[Hg] 80 mm[Hg] [facility] ([facility]) [place], large cuff/Ra; HR: 55 bpm Body weight 175.00 [lb_av] 175.00 [lb_av] [facility] T ([facility]) Body mass index (BMI) [Ratio] 31.0 kg/m2 31.0 k g/m2 [facility] ([facility]) Heart rate 57 /min 57 /min [facility] ([facility]) Systolic blood pressure--sitting 137 mm[Hg] 137 mm[Hg] [facility] ([facility]) CBP, large cuff/Ra Systolic blood pressure--standing 101 mm[Hg] 10 1 mm[Hg] [facility] ([facility]) [place], large cuff/Ra; HR: 62 bpm Diastolic blood pressure--standing 64 mm[Hg] 6 4 mm[Hg] [facility] ([facility]) [place], large cuff/Ra; HR: 62 bpm Systolic blood pressure 163 mm[Hg] 163 mm[Hg] M [facility] ([facility]) Diastolic blood pressure 85 mm[Hg] 85 mm[Hg] [facility] ([facility]) Heart rate 65 /min 65 /min [facility] ([facility]) Respiratory rate 18 /min 18 /min [facility] ( [facility]) Oxygen saturation in Arterial blood by Pulse oximetry 92 % 92 % [facility] ([facility])
[2021-01-16 14:57] LABS: BASO % 0.4 % (0.0-1.0); EOS # 0.2 10^3/uL (0.0-0.5); EOS % 3.2 % (0.0-3.0); HEMATOCRIT 33.8 % (42.0-52.0); LYMPH # 1.5 10^3/uL (1.5-5.0); LYMPH % 27.7 % (24.0-44.0); MEAN CORPUSCULAR HEMOGLOBIN 31.8 pg (27.0-33.0); MEAN CORPUSCULAR HGB CONC 32.5 g/dl (32.0-36.5); MEAN CORPUSCULAR VOLUME 97.7 fl (80.0-96.0); MONO # 0.8 10^3/uL (0.0-0.8); MONO % 15.4 % (2.0-8.0); NEUTROPHILS # 2.8 10^3/uL (1.5-8.5); NEUTROPHILS % 53.1 % (36.0-66.0); PLATELET COUNT, AUTOMATED 188 10^3/uL (150-450); RED BLOOD COUNT 3.46 10^6/uL (4.30-6.10); WHITE BLOOD COUNT 5.3 10^3/uL (4.0-10.0)
[2021-01-16 15:17] LABS: BLOOD UREA NITROGEN 19 MG/DL (7-18); CALCIUM LEVEL 8.5 MG/DL (8.8-10.2); CARBON DIOXIDE LEVEL 28 MEQ/L (21-32); CHLORIDE LEVEL 107 MEQ/L (98-107); CREATININE FOR GFR 1.21 MG/DL (0.70-1.30); GLOMERULAR FILTRATION RATE > 60.0 (>35); GLUCOSE, FASTING 90 MG/DL (70-100); POTASSIUM SERUM 3.8 MEQ/L (3.5-5.1); SODIUM LEVEL 141 MEQ/L (136-145)
--- NOTE | 2021-01-16 18:28 | REP ---
INDICATION: assess for urinary retention/hydronephrosis. COMPARISON: None. TECHNIQUE: Real-time sonographic evaluation of the kidneys is performed. FINDINGS: Renal cortical echogenicity pattern is normal bilaterally and contours are smooth. There is no hydronephrosis bilaterally. A cyst in the mid right kidney measures 1.8 x 1.1 x 1.1 cm. A cyst in the mid left kidney measures 2.1 x 1.1 x 1.3 cm. The right kidney measures 10.2 x 5.2 x 5.4 cm. Left renal dimensions are 9.6 x 4.2 x 4.1 cm. IMPRESSION: No hydronephrosis bilaterally. <Electronically signed by Yogi Juan > 01/16/21 [id number]
--- NOTE | 2021-01-16 18:29 | REP ---
INDICATION: assess for urinary retention/hydronephrosis. COMPARISON: None. TECHNIQUE: Real-time sonographic evaluation of urinary bladder performed. FINDINGS: Bladder measures 6.3 x 7.3 x 8.3 cm. Total volume 249 cc. Postvoid residual 71 cc is 29% of the original volume. With Doppler evaluation ureteral jets could not be visualized. No bladder wall mass is seen. There is no calculus. Prostate measures 3.2 x 2.1 x 3.1 cm. IMPRESSION: No bladder mass or calculus. Postvoid residual 29%. <Electronically signed by Yogi Juan > 01/16/21 [id number]
[2021-01-16 20:00] VITALS: BP 106/58
== END 2021-01-16 20:25 | disposition home or self-care (01) ==
LOC: M ED 12:20
DX: N18.9 Chronic kidney disease, unspecified (principal); G20 Parkinson's disease; E03.9 Hypothyroidism, unspecified; Z79.899 Other long term (current) drug therapy; Z79.890 Hormone replacement therapy

== ENCOUNTER → 2021-01-16 | Outpatient (REF) | payer MEDICARE, OTHER ==
[~2021-01-16] MED LIST changes: +ATOR1TAB21 PO; -BARIUM SULFATE 700 MG TABLET (E-Z-DISK) As Ordered ONE; -E-Z-PAQUE 96% w/w SUSP 176GM BTL As Ordered ONE; +ECOT81TA5 PO; +LEVO112T2 PO; +MM S100C PO; +MYRB25TA PO; -VARIBAR NECTAR 40% w/v 240ML SUSP BTL As Ordered ONE; -VARIBAR PUDDING 40% w/v 230ML TUBE As Ordered ONE
== END ==
LOC: M LAB REF 13:15
PROVIDERS: ATTEND Internal Medicine Nephrology
DX: N18.31 Chronic kidney disease, stage 3a (principal)

== ENCOUNTER 2023-04-20 11:07 | Observation (INO) | payer MEDICARE, OTHER ==
[~2023-04-20] VITALS: Ht 154.9 cm; Wt 54.0 kg
[2023-04-20] MEDS ORDERED: CARB25TA9 (11:35)
[2023-04-20 12:00] LABS: BASO % 0.2 % (0.0-1.0); EOS % 0.5 % (0.0-3.0); HEMATOCRIT 26.7 % (42.0-52.0); HEMOGLOBIN 8.4 g/dl (13.5-17.5); LYMPH # 0.7 10^3/uL (1.5-5.0); LYMPH % 11.9 % (24.0-44.0); MEAN CORPUSCULAR HEMOGLOBIN 30.4 pg (27.0-33.0); MEAN CORPUSCULAR HGB CONC 31.5 g/dl (32.0-36.5); MEAN CORPUSCULAR VOLUME 96.7 fl (80.0-96.0); MONO # 0.5 10^3/uL (0.0-0.8); MONO % 7.4 % (2.0-8.0); NEUTROPHILS # 4.9 10^3/uL (1.5-8.5); NEUTROPHILS % 79.3 % (36.0-66.0); RED BLOOD COUNT 2.76 10^6/uL (4.30-6.10); WHITE BLOOD COUNT 6.1 10^3/uL (4.0-10.0)
[2023-04-20] MEDS ORDERED: NS 500 ML IV ONE (12:25)
[2023-04-20] MEDS ORDERED: ACETAMINOPHEN 650MG SUPP PR ONE (12:25)
[2023-04-20 12:30] LABS: PLATELET COUNT, AUTOMATED 62 10^3/uL (150-450)
[2023-04-20 12:31] LABS: CALCIUM LEVEL 8.6 MG/DL (8.3-10.6); CREATININE FOR GFR 1.74 MG/DL (0.70-1.30); GLOMERULAR FILTRATION RATE 39.9 (>35); POTASSIUM SERUM 3.7 MMOL/L (3.5-5.1)
[2023-04-20] MEDS ORDERED: NS 1,620 ML in IV 1 EA IV STA (14:07)
[2023-04-20] MEDS ORDERED: PIPERACILLIN/TAZOBACTAM SOD 4.5 GM in D5W MINI-BAG PLUS 50 ML IV ONE (14:10)
[2023-04-20] MEDS ORDERED: MED REC IN PROGRESS XX SCH (15:00)
[2023-04-20] MEDS ORDERED: ATROPINE SULFATE 1% OPHTH SOLN 2ML BTL SL PRN (15:55)
[2023-04-20 17:00] VITALS: BP 109/55; TEMP 98
[2023-04-20] MEDS ORDERED: SYNT125T PO (17:36)
[2023-04-20] MEDS ORDERED: HOME MED LIST COMPLETE! XX SCH (17:50)
[2023-04-20] MEDS: MORPHINE 2 MG/ML 1ML VIAL IV PRN ×2 (17:56→20:24)
[2023-04-20 18:40] VITALS: O2SAT 91
[2023-04-20] MEDS: LORazepam 2 MG/ML 1ML VIAL IV PRN ×2 (20:23→22:52)
[2023-04-20] MEDS: MORPHINE 4 MG/ML 1ML VIAL IV PRN (22:53)
[2023-04-21] MEDS: MORPHINE 4 MG/ML 1ML VIAL IV PRN ×8 (03:01→23:31)
[2023-04-21] MEDS ORDERED: SCOPOLAMINE 1MG TRANSDERMAL PATCH TOP PRN (20:00)
[2023-04-22] MEDS: MORPHINE 4 MG/ML 1ML VIAL IV PRN (03:46)
== END 2023-04-22 07:20 | disposition expired ==
LOC: M ED 11:07 → EDBD 11:07 → M ED INP 15:54 → ENRESERV 16:23 → M MS5PR 17:30
PROVIDERS: ADMIT Internal Medicine; ATTEND Internal Medicine
DX: G93.41 Metabolic encephalopathy (principal); A41.9 Sepsis, unspecified organism; G20.C Parkinsonism, unspecified; J69.0 Pneumonitis due to inhalation of food and vomit; F03.90 Unspecified dementia, unspecified severity, without behavioral disturbance, psychotic disturbance, mood disturbance, and anxiety; N39.0 Urinary tract infection, site not specified; N17.9 Acute kidney failure, unspecified; N18.9 Chronic kidney disease, unspecified; R13.10 Dysphagia, unspecified; D64.9 Anemia, unspecified; E87.0 Hyperosmolality and hypernatremia; I50.30 Unspecified diastolic (congestive) heart failure; I95.1 Orthostatic hypotension; E78.5 Hyperlipidemia, unspecified; E03.9 Hypothyroidism, unspecified; Z79.82 Long term (current) use of aspirin; Z79.899 Other long term (current) drug therapy
CPT/HCPCS: 51701; 71045; 71250; 74176; 80048; 81001; 83605; 85025; 85049; 85055; 87040; 87077; 87088; 87186; 87486; 87581; 87633; 87798; 93005; 93041; 94760; 96361; 96365; 96375; 96376; 99285; G0378; J2060; J2543